=== PATIENT | female | born 1960 | race Caucasian/White ===

== ENCOUNTER 2020-08-06 10:10 | Outpatient (REF) | payer MEDICAID, SELFPAY ==
--- NOTE | ~2020-08-06 | MM_ITS ---
EXAMINATION: MM SCREENING DIGITAL BREAST TOMOSYNTHESIS, BILATERAL CLINICAL INFORMATION: Screening. Asymptomatic. No prior breast imaging. Age 60. Family history breast cancer, paternal grandmother. The lifetime risk of breast cancer based on the Tyrer-Cuzick Model is 9%. COMPARISON: None (current study represents initial baseline exam). TECHNIQUE: Digital breast tomosynthesis is performed in both the craniocaudal and mediolateral oblique views along with computer-aided detection (CAD). Synthesized 2D images are generated from the tomosynthesis. FINDINGS: There are scattered areas of fibroglandular density (ACR BI-RADS breast composition Category b). There are no significant masses, abnormal calcifications, or other abnormalities. There are scattered bilateral benign-appearing parenchymal densities. No architectural abnormality. The axilla are unremarkable. MM/MM tomosynthesis screening BI IMPRESSION: No mammographic evidence of malignancy. ASSESSMENT: BI-RADS 2: Benign RECOMMENDATION: Routine annual mammography screening. This patient's information was entered into a reminder system with a target due date for their next mammogram.
== END 2020-08-06 10:11 | disposition home or self-care (01) ==
LOC: HO.MAMMO 10:10
PROVIDERS: PCP Hospitalist; Visit Provider Hospitalist
DX: Z12.31 Encounter for screening mammogram for malignant neoplasm of breast (principal)
CPT/HCPCS: 77063; 77067

== ENCOUNTER 2020-09-04 17:26 | Inpatient (IN) | payer MEDICAID, SELFPAY ==
--- NOTE | ~2020-09-04 | XR_ITS ---
EXAMINATION: XR CHEST CLINICAL INFORMATION: Fever, altered mental status. COMPARISON: None TECHNIQUE: Frontal view of the chest was obtained. FINDINGS: Rotated positioning. The cardiomediastinal silhouette is prominent, accentuated by positioning/technique. There is hazy/patchy opacities in the left lung base including the retrocardiac region. Findings could represent atelectasis or infiltrate. Small left pleural effusion. No focal consolidation in the right lung. No pulmonary edema. No visible pneumothorax. No acute osseous abnormality seen. XR/XR chest 1V IMPRESSION: Left basilar opacity could represent atelectasis or infiltrate. Small left pleural effusion.
[2020-09-04 17:44] VITALS: BP 141/75; PULSE 81; RESP 24; TEMP 36.6; O2SAT 98; BMI 32.3
--- NOTE | 2020-09-04 18:05 | PC.NURSE ---
CALLED [facility], THEY STATED THAT NOON TIME IS LAST KNOWN WELL. 09/04/20. 1200.
--- NOTE | 2020-09-04 18:19 | ED.AMS ---
HPI - Altered Mental Status General Chief Complaint: Altered Mental Status Stated Complaint: ams, weakness Time Seen by Provider: 09/04/20 18:19 Source: EMS and RN notes reviewed Limitations: altered mental status History of Present Illness HPI narrative: Patient from skilled nursing with history of schizoaffective disorder Parkinson's disease atrial fibrillation sent from skilled nursing for increased weakness and confusion for last 24 hours patient usually able to walk with the help but now she is not even getting up from the bed no fever noticed on arrival patient temperature was 100 degrees blood pressure 141/69 pulse rate 87 saturating 99% at room air not any distress no focal weakness noticed no facial asymmetry Related Data Home Medications Medication Instructions Recorded Confirmed carbidopa-levodopa [Sinemet] 1 tab PO QID 09/04/20 09/04/20 digoxin 125 mcg PO DAILY 09/04/20 09/04/20 fluvoxamine 25 mg PO BEDTIME 09/04/20 09/04/20 furosemide [Lasix] 40 mg PO DAILY 09/04/20 09/04/20 lactase [Lactaid] 3,000 unit PO QID 09/04/20 09/04/20 metoprolol tartrate 50 mg PO BID 09/04/20 09/04/20 risperidone [Risperdal] 2 mg PO BID 09/04/20 09/04/20 rivaroxaban [Xarelto] 20 mg PO QPM 09/04/20 09/04/20 sennosides [senna] 8.6 mg PO DAILY 09/04/20 09/04/20 simvastatin 20 mg PO BEDTIME 09/04/20 09/04/20 valproic acid 500 mg PO DAILY 09/04/20 09/04/20 Allergies Allergy/AdvReac Type Severity Reaction Status Date / Time lactose Allergy Mild Unknown Verified 09/04/20 17:42 Review of Systems Review of Systems: Constitutional : No Weight loss, No Fever, No Chills ENT/Mouth : No sore throat, No Rhinorrhea Eyes: No Eye Pain, No Swelling Cardiovascular : No Chest Pain, no palpitations Respiratory : No Cough, No Sputum, no shortness of breath Gastrointestinal : no Nausea, No Vomiting, No Diarrhea, No abdominal Pain, no black stools Genitourinary : No Dysuria, No Urinary Frequency Musculoskeletal : No joint pain, No Myalgias, No Joint Swelling Skin : No Skin Lesions, No rash Neuro : ++Weakness, No Numbness, No Dizziness, No Headache Psych : No Anxiety/Panic, No Depression Heme/Lymph: No Bruising, No Lymphadenopathy Endocrine : No Polyuria, No Polydipsia All other systems reviewed and are negative [facility] Past Medical History Medical History Atrial fibrillation Parkinsons Schizoaffective disorder Social History Social History Household Members: None and Other Housing: Other Housing Other:: [facility] Alcohol intake: never Patient Tobacco Use Status: Never used Tobacco Smoked in Last 30 Days: No Use of substances other than those prescribed or required for medical reasons: No Have you been hit, kicked, punched, or otherwise hurt by someone within the past year? If so, by whom?: No Do you feel safe in your current relationship?: No Current Relationship Is there a partner from a previous relationship who is making you feel unsafe now?: No Advance Directives: No Advance Directives Information Provided: No Do you have thoughts of harming others: None Do you have a plan to hurt others: No Plan Recently lost weight without trying: No Nutrition Risks: No Nutritional Risk Patient : No : No Poor oral hygiene: No Physical Exam Vital Signs: Vital Signs: Last Vital Signs Temp 98.7 F 09/05/20 00:00 Pulse 87 09/05/20 00:00 Resp 18 09/05/20 00:00 BP 132/80 09/05/20 00:00 Pulse Ox 98 09/05/20 00:00 Body Mass Index 32.3 Appearance: Alert. Oriented X2. No acute distress. Eyes: PERRLA, No Nystagmus ENT: Pharynx normal. Oral Mucosa moist Neck: Normal inspection. Neck supple. CVS: Normal heart rate and rhythm. Pulses normal. Respiratory: No respiratory distress. Equal air entry bilateral, no wheezing/rales/rhonchi Abdomen: Soft and nontender. Bowel sounds are present, no mass palpable, no CVA tenderness Skin: Skin warm and dry. Normal skin color. Normal skin turgor. Extremities: No lower extremity edema. No calf tenderness, decrease weakness of the lower extremity Neuro: Oriented X2. No motor deficit. No sensory deficit.No cerebellar signs , cranial nerves II-XII intact MDM - Altered Mental Status MDM Narrative Medical decision making narrative: Patient with change in mental status with UTI will admit patient for IV antibiotics and IV fluids Medical Records Attestation: I reviewed the patient's medical records. Lab Data Attestation: I reviewed the patient's lab results. Result diagrams: 09/04/20 Unknown 09/04/20 Unknown Labs: Lab Results 09/04/20 09/04/20 09/04/20 Range/Units 18:43 18:43 22:08 POC Glucose 110 (60-115) mg/dL Urine Color YELLOW Urine Appearance HAZY Urine pH 6.0 (5.0-8.0) Ur Specific [place] 1.010 (1.005-1.025) Urine Protein 1+ H (NEG-TRACE) MG/DL Urine Glucose (UA) NEG (NEG) MG/DL Urine Ketones NEG (NEG) MG/DL Urine Blood 2+ H (NEG) Urine Nitrite NEG (NEG) Ur Leukocyte Esterase 2+ H (NEG) Urine RBC 15-29 H (0) /HPF Urine WBC 76-150 H (0-4) /HPF Ur Squamous Epith Cells 1+ /LPF Urine Bacteria 2+ /LPF COVID-19 ([facility]) Negative (Negative) COVID-19 Clin Com See Note Discharge Plan Discharge Clinical Impression: UTI (urinary tract infection) Qualifiers: Urinary tract infection type: acute cystitis Hematuria presence: without hematuria Qualified Code(s): N30.00 - Acute cystitis without hematuria Altered mental status Qualifiers: Altered mental status type: transient alteration of awareness Qualified Code(s): R40.4 - Transient alteration of awareness Patient Disposition: Admitted As Inpatient Interventions: Admission Worksheet (ED) Last Done: 09/05/20 00:03 Discharge Date/Time: 09/05/20 00:04
--- NOTE | 2020-09-04 18:19 | PC.NURSE ---
patient soiled the linen, changed and cleaned.
[2020-09-04 18:53] LABS: Glucose Urine UA NEG (NEG); Leukocyte Esterase Urine 2+ (NEG); Nitrite Urine NEG (NEG); UACC Culture Trigger YES; Urine Blood 2+ (NEG); Urine Ketones NEG (NEG); Urine Protein 1+ MG/DL (NEG-TRACE)
[2020-09-04 18:54] LABS: Appearance Urine HAZY; Color Urine YELLOW
[2020-09-04 19:00] LABS: Bacteria Urine 2+ /LPF; Squamous Epithelial Cell Urine 1+ /LPF
[2020-09-04 19:10] LABS: COVID-19 Test Negative (Negative); IDNOW Serial# 9DD0AD1C
[2020-09-04 19:16] LABS: MANUAL DIFF FLAG NO
[2020-09-04 19:17] LABS: Basophils Percent Auto 0.2 % (0-2); Eosinophils Percent Auto 0.1 % (0-4); Hematocrit 39.5 % (37-47); Hemoglobin 12.9 g/dl (12.0-16.0); Imm Gran Abs Auto 0.05 X10*3/uL (0.00-0.03); Imm Gran Pct Auto 0.5 % (0.0-0.4); Lymphocytes Absolute Auto 1.2 X10*3/uL (1.2-4.9); Lymphocytes Percent Auto 12.7 % (20-40); Mean Corpuscular HGB Conc 32.7 g/dl (31.0-35.0); Mean Corpuscular Hemoglobin 31.8 pg (27.0-33.0); Mean Corpuscular Volume 97.3 fL (80-98); Mean Platelet Volume 9.7 fL (9.4-12.3); Monocytes Absolute Auto 1.3 X10*3/uL (0.1-1.2); Monocytes Percent Auto 13.4 % (2-11); Neutrophils Absolute Auto 6.9 X10*3/uL (2.0-8.3); Neutrophils Percent Auto 73.1 % (45-73); Platelet Count 190 X10*3/uL (160-400); Red Blood Count 4.06 X10*6/uL (4.20-5.50); Red Cell Distribution Width 13.2 % (11.0-16.0); White Blood Count 9.5 X10*3/uL (4.8-10.8)
[2020-09-04 19:36] LABS: Lactic Acid 1.6 mmol/L (0.5-2.0)
[2020-09-04 19:44] LABS: Alanine Aminotransferase < 6 U/L (0-31); Alkaline Phosphatase 62 U/L (39-117); Anion Gap 16 (12-20); Aspartate Amino Transferase 8 U/L (5-31); Bilirubin Direct 0.2 mg/dL (0.0-0.5); Bilirubin Total 0.4 mg/dL (0.0-1.0); Blood Urea Nitrogen 14 mg/dL (9-16); Calcium 9.7 mg/dL (8.4-10.2); Carbon Dioxide 29 mmol/L (22-29); Chloride 96 mmol/L (96-108); Creatinine Clr Calc Pharmacy 82.7; Estimated Glomerular Filt Rate > 60; Glucose Random 103 mg/dL (60-115); Lipase 16 U/L (8-78); Potassium 3.8 mmol/L (3.3-5.1); Sodium 137 mmol/L (135-145); Total Protein 6.7 g/dL (6.5-8.0)
[2020-09-04 20:00] VITALS: BP 141/69; PULSE 87; RESP 14; TEMP 37.8; O2SAT 99
[2020-09-04] MEDS: Acetaminophen 325 MG TABLET 650 MG PO (20:30)
[2020-09-04] MEDS: cefTRIAXone sodium 1 GM in 0.9 % Sodium Chloride 50 ML IV (20:30)
[2020-09-04] MEDS: 0.9 % Sodium Chloride 1,000 ML 999 ML IVCONT (20:30)
--- NOTE | 2020-09-04 20:40 | PC.NURSE ---
BC x 2 sent. IVF and antibiotics running. Patient reports feeling very tired. Resting in bed. Took PO tylenol without issue. Extremities cool. NSR on tele. stable on RA. Normotensive.
[2020-09-04 22:00] VITALS: BP 108/31; PULSE 90; RESP 20; TEMP 36.5; O2SAT 94
[2020-09-04 22:11] LABS: Glucose, Whole Blood 110 mg/dL (60-115)
--- NOTE | 2020-09-04 22:15 | PC.NURSE ---
Patient sleeping. Hypotensive with MAPS in <60. Will notify . POC WNL. 1L ns completed.
[2020-09-04 22:21] VITALS: BP 106/39; PULSE 90; RESP 20; TEMP 36.5; O2SAT 94
--- NOTE | 2020-09-04 22:43 | PM.IMHP ---
History of Present Illness Date of Service: 09/04/20 Chief Complaint: Generalized weakness 60-year-old female with a past medical history of hypertension, hyperlipidemia, Parkinson's disease,? AFib, not on anticoagulation but on digoxin, history of schizoaffective disorder to the hospital with a chief complaint of generalized weakness. [facility], spoke to the staff at phone number [phone]; who mentioned that patient is not herself today. Patient reportedly had urinary incontinence. Patient is weak in general. Subsequently sent to the hospital for further evaluation. Reportedly patient did not complain of any chest pain lightheadedness dizziness. Denies any fever chills cough. In general patient uses walker and has no swallowing difficulties. Denies any chest pain palpitations lightheadedness dizziness. Review of all other systems is negative except mentioned above ER course: Per ER team patient exam was nonfocal, chest x-ray showed question infiltrate versus atelectasis, urinalysis abnormal consistent with UTI. Given antibiotics. Admitted for further management. [facility] Medical History Atrial fibrillation Parkinsons Schizoaffective disorder Social History Household Members: None and Other Housing: Other Housing Other:: [facility] Alcohol intake: never Patient Tobacco Use Status: Never used Tobacco service: No Current occupational status: disabled Meds Allergies Allergy/AdvReac Type Severity Reaction Status Date / Time lactose Allergy Mild Unknown Verified 09/04/20 17:42 Active Medications: Current Medications Generic Name Dose Route Start Last Admin Trade Name Mattq PRN Reason Stop Dose Admin Acetaminophen 650 mg 09/04/20 22:17 Acetaminophen 325 Mg Tablet PO Q6H PRN Pain, Mild (Pain Scale 1-3) Azithromycin 500 mg 09/04/20 22:00 Azithromycin 500 Mg Tablet PO Q24H ROMAIN Docusate Sodium 100 mg 09/05/20 09:00 Docusate Sodium 100 Mg Capsule PO BID [facility] Enoxaparin Sodium 40 mg 09/04/20 22:30 Enoxaparin Sodium 40 Mg/0.4 Ml Syringe SUBCUT Q24H [facility] Sodium Chloride 1,000 mls @ 100 mls/hr 09/04/20 22:30 Ns IVCONT .Q10H [facility] Ceftriaxone Sodium 1 gm/ 50 mls @ 100 mls/hr 09/05/20 20:00 Sodium Chloride IV Q24H [facility] Sodium Chloride 500 mls @ 500 mls/hr 09/04/20 22:45 Ns IV 09/04/20 23:44 .Q1H [facility] Magnesium Hydroxide 30 ml 09/04/20 22:17 Milk Of Magnesia 30 Ml Oral.Susp PO DAILY PRN Constipation Sodium Chloride 3 ml 09/05/20 00:00 0.9 % Sodium Chloride Flush 3 Ml Syringe IVFLUSH QSHIFT [facility] Home Medications Medication Instructions Recorded Confirmed Last Taken Type Xarelto 20 mg PO QPM 09/04/20 09/04/20 Unknown History carbidopa-levodopa [Sinemet] 1 tab PO QID 09/04/20 09/04/20 Unknown History digoxin 125 mcg PO DAILY 09/04/20 09/04/20 Unknown History fluvoxamine 25 mg PO BEDTIME 09/04/20 09/04/20 Unknown History furosemide [Lasix] 40 mg PO DAILY 09/04/20 09/04/20 Unknown History lactase [Lactaid] 9,000 unit PO AC 09/04/20 09/05/20 Unknown History metoprolol tartrate 50 mg PO BID 09/04/20 09/04/20 Unknown History risperidone [Risperdal] 2 mg PO BID 09/04/20 09/04/20 Unknown History sennosides [senna] 8.6 mg PO DAILY PRN 09/04/20 09/04/20 Unknown History simvastatin 20 mg PO BEDTIME 09/04/20 09/04/20 Unknown History valproic acid 500 mg PO DAILY 09/04/20 09/04/20 Unknown History acetaminophen 650 mg PO Q6H PRN 09/05/20 09/05/20 Unknown History bisacodyl 10 mg IN DAILY PRN 09/05/20 09/05/20 Unknown History loperamide 2 mg PO Q4H PRN 09/05/20 09/05/20 Unknown History valproic acid 1,000 mg PO BEDTIME 09/05/20 09/05/20 Unknown History Physical Exam Vital Signs and Narrative: Vital Signs: Last Vital Signs Temp 97.7 F 09/04/20 22:21 Pulse 90 09/04/20 22:21 Resp 20 09/04/20 22:21 BP 106/39 L 09/04/20 22:21 Pulse Ox 94 09/04/20 22:21 Body Mass Index 32.3 Gen: Appears be in no acute distress HEENT: NCAT, Moist mucosa. Pulmonary: Course breath sounds, fair air entry CVS: Normal S1-S2 Abdomen: BS+, Soft, Nontender Extremities: Warm well perfused Neuro: Alert and awake. Moves all extremities equally Results Labs CBC and Chem 7: 09/05/20 05:57 09/05/20 05:57 Labs: Laboratory Results - last 24 hr 09/04/20 09/04/20 09/04/20 18:43 18:43 22:08 MCV MCH MCHC RDW Plt Count MPV Immature Gran % (Auto) Neut % (Auto) Lymph % (Auto) [place] % (Auto) Eos % (Auto) Baso % (Auto) Lymph # (Auto) [place] # (Auto) Eos # (Auto) Baso # (Auto) Abs Immat Gran (auto) Absolute Neuts (auto) Absolute Nucleated RBC Nucleated RBC % (auto) Anion Gap Estim Creat Clear Calc Estimated GFR POC Glucose 110 Random Glucose Lactic Acid Calcium Total Bilirubin Direct Bilirubin AST ALT Alkaline Phosphatase Total Protein Albumin Lipase Urine Color YELLOW Urine Appearance HAZY Urine pH 6.0 Ur Specific [place] 1.010 Urine Protein 1+ H Urine Glucose (UA) NEG Urine Ketones NEG Urine Blood 2+ H Urine Nitrite NEG Ur Leukocyte Esterase 2+ H Urine RBC 15-29 H Urine WBC 76-150 H Ur Squamous Epith Cells 1+ Urine Bacteria 2+ COVID-19 ([facility]) Negative COVID-19 Clin Com See Note 09/04/20 09/04/20 09/04/20 Unknown Unknown Unknown MCV 97.3 MCH 31.8 MCHC 32.7 RDW 13.2 Plt Count 190 MPV 9.7 Immature Gran % (Auto) 0.5 H Neut % (Auto) 73.1 H Lymph % (Auto) 12.7 L [place] % (Auto) 13.4 H Eos % (Auto) 0.1 Baso % (Auto) 0.2 Lymph # (Auto) 1.2 [place] # (Auto) 1.3 H Eos # (Auto) 0.0 Baso # (Auto) 0.0 Abs Immat Gran (auto) 0.05 H Absolute Neuts (auto) 6.9 Absolute Nucleated RBC 0.000 Nucleated RBC % (auto) 0.0 Anion Gap 16 Estim Creat Clear Calc 82.7 Estimated GFR > 60 POC Glucose Random Glucose 103 Lactic Acid 1.6 Calcium 9.7 Total Bilirubin 0.4 Direct Bilirubin 0.2 AST 8 ALT < 6 Alkaline Phosphatase 62 Total Protein 6.7 Albumin 4.0 Lipase 16 Urine Color Urine Appearance Urine pH Ur Specific [place] Urine Protein Urine Glucose (UA) Urine Ketones Urine Blood Urine Nitrite Ur Leukocyte Esterase Urine RBC Urine WBC Ur Squamous Epith Cells Urine Bacteria COVID-19 ([facility]) COVID-19 Clin Com Imaging Radiologist's Impressions: Impressions Chest X-Ray 09/04/20 18:21 IMPRESSION: Left basilar opacity could represent atelectasis or infiltrate. Small left pleural effusion. Assessment and Plan (1) UTI (urinary tract infection): Status: Acute 60-year-old female with a past medical history of hypertension, hyperlipidemia, Parkinson's disease, schizoaffective disorder,? AFib presented to the hospital with a chief complaint of generalized weakness/confusion per [facility] staff. Noted to have UTI. Confusion: Likely toxic metabolic encephalopathy. Improving. Will continue to monitor. Supportive care. Will obtain ammonia levels given patient on valproate as outpatient. UTI/pneumonia: Follow-up cultures. Continue ceftriaxone azithromycin. Speech and swallow eval. COVID negative History of Parkinson's disease: Continue home carbidopa levodopa. History of schizoaffective disorder: Continue home valproate ? AFib: Will obtain EKG. Patient on digoxin at home. Will obtain digoxin levels. DVT prophylaxis: Lovenox Code status: Full code
[2020-09-04] MEDS: 0.9 % Sodium Chloride 1,000 ML 100 ML IVCONT (22:58)
[2020-09-04] MEDS: 0.9 % Sodium Chloride 500 ML IV (23:01)
[2020-09-04] MEDS: Azithromycin 500 MG TABLET PO (23:04)
[2020-09-04] MEDS: Enoxaparin Sodium 40 MG/0.4 ML SYRINGE SUBCUT (23:04)
--- NOTE | 2020-09-04 23:06 | PC.NURSE ---
Patient continues to report tiredness as only complaint. No interested in food or drink. 500ml bolus ns infusing, will be followed by 100ml/hr infusion. Pending bed assignment.
--- NOTE | 2020-09-04 23:31 | PC.NURSE ---
Report called to floor RN. PT pending transfer.
[2020-09-04 23:52] LABS: Delay - Chemistry DELAY
[2020-09-05] VITALS (9 sets, daily range): BP systolic 92–143; BP diastolic 53–80; PULSE 61–102; RESP 16–18; TEMP 36.2–37.1; O2SAT 93–98; BMI 37.5
[2020-09-05 00:11] LABS: Digoxin 0.4 ng/mL (0.8-2.0); Troponin-I High Sensitivity 7.4 ng/L (<3.5-17.0)
[2020-09-05] MEDS: 0.9 % Sodium Chloride 1,000 ML 100 ML IVCONT (00:18)
[2020-09-05 00:25] LABS: Ammonia 57 umol/L (13-55)
--- NOTE | 2020-09-05 06:31 | PC.NURSE ---
Pt brought to unit with indwelling catheter. No order or reasoning in notes/reports to have one placed. Gonzalez removed 0600 09/05/20. Purewick in place. Will pass onto day shift to monitor urinary output.
[2020-09-05 07:11] LABS: Anion Gap 16 (12-20); Blood Urea Nitrogen 10 mg/dL (9-16); Calcium 8.8 mg/dL (8.4-10.2); Carbon Dioxide 25 mmol/L (22-29); Chloride 104 mmol/L (96-108); Creatinine Clr Calc Pharmacy 113.3; Estimated Glomerular Filt Rate > 60; Glucose Random 100 mg/dL (60-115); Potassium 3.8 mmol/L (3.3-5.1); Sodium 141 mmol/L (135-145)
[2020-09-05 07:15] LABS: Basophils Percent Auto 0.1 % (0-2); Eosinophils Percent Auto 0.2 % (0-4); Hematocrit 35.8 % (37-47); Hemoglobin 11.4 g/dl (12.0-16.0); Imm Gran Abs Auto 0.05 X10*3/uL (0.00-0.03); Imm Gran Pct Auto 0.6 % (0.0-0.4); MANUAL DIFF FLAG SCAN; Mean Corpuscular HGB Conc 31.8 g/dl (31.0-35.0); Mean Corpuscular Hemoglobin 31.1 pg (27.0-33.0); Mean Corpuscular Volume 97.8 fL (80-98); Monocytes Absolute Auto 1.6 X10*3/uL (0.1-1.2); Neutrophils Absolute Auto 6.2 X10*3/uL (2.0-8.3); Neutrophils Percent Auto 70.1 % (45-73); Platelet Count 157 X10*3/uL (160-400); Red Blood Count 3.66 X10*6/uL (4.20-5.50); Red Cell Distribution Width 13.4 % (11.0-16.0); SCAN SMEAR FLAG 1; White Blood Count 8.8 X10*3/uL (4.8-10.8)
[2020-09-05 08:06] LABS: SLIDE REVIEW VERIFIED
[2020-09-05] MEDS: Docusate Sodium 100 MG CAPSULE PO ×2 (10:13→20:24)
--- NOTE | 2020-09-05 10:45 | P.PNIM_ITS ---
Subjective Subjective Date of Service: 09/05/20 <So Valdovinos NP - Last Filed: 09/05/20 11:06> 09/05/20 <Rock Juarez MD - Last Filed: 09/05/20 15:39> Interval History: Follow up PNA/UTI Feeling better today sitting up eating breakfast <So Valdovinos NP - Last Filed: 09/05/20 11:06> Physical Exam Vital Signs: Vital Signs: Last Vital Signs Temp 98.7 F 09/05/20 07:47 Pulse 87 09/05/20 07:47 Resp 16 09/05/20 07:47 BP 143/65 H 09/05/20 07:47 Pulse Ox 93 09/05/20 07:47 Body Mass Index 37.5 <So Valdovinos NP - Last Filed: 09/05/20 11:06> Appearing in no acute distress lung sounds are clear to auscultation heart regular rate rhythm, clear S1, S2 positive bowel sounds, abdomen is soft, nontender, obese neuro patient is alert x3, no focal deficits <So Valdovinos NP - Last Filed: 09/05/20 11:06> Objective Data Current Medications Generic Name Dose Route Start Last Admin Trade Name Freq PRN Reason Stop Dose Admin Acetaminophen 650 mg 09/04/20 22:17 Acetaminophen 325 Mg Tablet PO Q6H PRN Pain, Mild (Pain Scale 1-3) Azithromycin 500 mg 09/04/20 22:00 09/04/20 23:04 Azithromycin 500 Mg Tablet PO 500 mg Q24H ROMAIN Administration Docusate Sodium 100 mg 09/05/20 09:00 09/05/20 10:13 Docusate Sodium 100 Mg Capsule PO 100 mg BID ROMAIN Administration Enoxaparin Sodium 40 mg 09/04/20 22:30 09/04/20 23:04 Enoxaparin Sodium 40 Mg/0.4 Ml Syringe SUBCUT 40 mg Q24H ROMAIN Administration Sodium Chloride 1,000 mls @ 100 mls/hr 09/04/20 22:30 09/05/20 10:24 Ns IVCONT Infused .Q10H [facility]AIN Infusion Ceftriaxone Sodium 1 gm/ 50 mls @ 100 mls/hr 09/05/20 20:00 Sodium Chloride IV Q24H [facility] Magnesium Hydroxide 30 ml 09/04/20 22:17 Milk Of Magnesia 30 Ml Oral.Susp PO DAILY PRN Constipation Sodium Chloride 3 ml 09/05/20 00:00 09/05/20 08:46 0.9 % Sodium Chloride Flush 3 Ml Syringe IVFLUSH Not Given QSHIFT ROMAIN <So Valdovinos NP - Last Filed: 09/05/20 11:06> Labs CBC & Chem 7: : 09/05/20 05:57 09/05/20 05:57 <So Valdovinos NP - Last Filed: 09/05/20 11:06> Microbiology Microbiology Results: Microbiology 09/04/20 18:43 Urine clean catch - Clean Catch Midstream Urine Culture - Preliminary Gram negative pearl <So Valdovinos NP - Last Filed: 09/05/20 11:06> Assessment and Plan (1) UTI (urinary tract infection): Status: Acute <So Valdovinos NP - Last Filed: 09/05/20 11:06> Assessment and Plan: 60-year-old female with a past medical history of hypertension, hyperlipidemia, Parkinson's disease, schizoaffective disorder,? AFib presented to the hospital with a chief complaint of generalized weakness/confusion per [facility] home staff. Noted to have UTI. Toxic metabolic encephalopathy. Secondary to infection Improving. -will continue to monitor. UTI. cx GNR -continue ceftriaxone PNA. follow cx no hypoxia covid neg -ceftriaxone and azithromycin. History of Parkinson's disease -Continue home carbidopa levodopa. History of schizoaffective disorder -Continue home valproate AFib. Stable -Digoxin and metoprolol -Xarelto Obesity. BMI 37.5 -Discussed the importance of weight loss as this may contribute to worsening of other comorbidities DISPO: Back to [facility] when medically stable DVT prophylaxis with xarelto Full code Dr. Juarez <So Valdovinos NP - Last Filed: 09/05/20 11:06> (2) Altered mental status: Status: Acute <So Valdovinos NP - Last Filed: 09/05/20 11:06> Assessment and Plan: Addendum to documentation by midlevel I saw and examined the patient and participated in the nicholson portion of the E/M service. I agree with finding, asssessment and plan as mentioned above. She is imroving from UTI with toxic metabolic encephalopathy. Urine culture is growing gram negaive, no sensitivity as of yet, so continue Ceftriaxone which seems to be a good choice thus far, otherwise I agree with assessent and plan as above. <Rock Juarez MD - Last Filed: 09/05/20 15:39>
[2020-09-05] MEDS: Furosemide 40 MG TABLET PO (11:46)
[2020-09-05] MEDS: Carbidopa/Levodopa 25/100 TABLET 1 TAB PO ×3 (11:46→20:24)
[2020-09-05] MEDS: Metoprolol Tartrate 50 MG TABLET PO ×2 (11:46→20:24)
[2020-09-05] MEDS: Digoxin 0.125 MG TABLET PO (11:46)
[2020-09-05] MEDS: Sennosides 8.6 MG TABLET PO (11:46)
[2020-09-05] MEDS: risperiDONE 2 MG TABLET PO ×2 (11:46→20:24)
[2020-09-05] MEDS: Lactase TABLET 3 TAB PO ×2 (13:42→17:09)
[2020-09-05] MEDS: Valproic Acid 250 MG CAPSULE 500 MG PO (13:42)
--- NOTE | 2020-09-05 14:31 | MHC.CM.PN ---
CM MET WITH PT WHO CONFIRMS SHE LIVES AT [facility]. CM CONFIRMED WITH SNF, PT DOES NOT HAVE A GUARDIAN OR HCP AND IS HER OWN PERSON. PT REPORTS SHE RECEIVES SOME ASSISTANCE WITH ADLS AT THE SNF BUT DOES NOT REQUIRE AN ASSISTIVE DEVICE TO AMBULATE. CURRENT DC PLAN IS FOR PT TO RETURN TO [facility] VIA BLS
[2020-09-05] MEDS: 0.9 % Sodium Chloride Flush 3 ML SYRINGE IVFLUSH ×2 (17:10→20:24)
[2020-09-05] MEDS: cefTRIAXone sodium 1 GM in 0.9 % Sodium Chloride 50 ML IV (19:41)
[2020-09-05] MEDS: Rivaroxaban 20 MG TABLET PO (20:23)
[2020-09-05] MEDS: Valproic Acid 250 MG CAPSULE 1000 MG PO (20:23)
[2020-09-05] MEDS: Atorvastatin Calcium 10 MG TABLET PO (20:24)
[2020-09-05] MEDS: Azithromycin 500 MG TABLET PO (21:11)
[2020-09-06] VITALS (7 sets, daily range): BP systolic 107–144; BP diastolic 53–88; PULSE 80–91; RESP 17–20; TEMP 36.4–37.1; O2SAT 94–99
--- NOTE | 2020-09-06 | ECG_ITS ---
Test Reason : chest pressure Blood Pressure : / mmHG Vent. Rate : 085 BPM Atrial Rate : 091 BPM P-R Int : 000 ms QRS Dur : 086 ms QT Int : 358 ms P-R-T Axes : 000 056 -60 degrees QTc Int : [address] & T wave abnormality, consider inferior ischemia ST & T wave abnormality, consider anterolateral ischemia Abnormal ECG No previous ECGs available Referred By: So Valdovinos Electronically Signed By:CLAUDINE STARR
[2020-09-06] MEDS: Docusate Sodium 100 MG CAPSULE PO ×2 (07:12→21:16)
[2020-09-06] MEDS: Valproic Acid 250 MG CAPSULE 500 MG PO (07:12)
[2020-09-06] MEDS: 0.9 % Sodium Chloride Flush 3 ML SYRINGE IVFLUSH ×3 (07:12→23:38)
[2020-09-06] MEDS: Carbidopa/Levodopa 25/100 TABLET 1 TAB PO ×4 (07:13→21:16)
[2020-09-06] MEDS: Lactase TABLET 3 TAB PO ×3 (07:13→17:59)
[2020-09-06] MEDS: Furosemide 40 MG TABLET PO (07:13)
[2020-09-06] MEDS: risperiDONE 2 MG TABLET PO ×2 (07:13→21:16)
[2020-09-06] MEDS: Metoprolol Tartrate 50 MG TABLET PO ×2 (07:13→21:16)
[2020-09-06] MEDS: Sennosides 8.6 MG TABLET PO (07:13)
[2020-09-06] MEDS: Digoxin 0.125 MG TABLET PO (07:13)
--- NOTE | 2020-09-06 09:51 | P.PNIM_ITS ---
Subjective Subjective Date of Service: 09/06/20 <So Valdovinos NP - Last Filed: 09/06/20 09:56> 09/06/20 <Rock Juarez MD - Last Filed: 09/06/20 13:37> Interval History: Follow up PNA/UTI Feeling better today sitting up eating breakfast c/o chest pressure <So Valdovinos NP - Last Filed: 09/06/20 09:56> Physical Exam Vital Signs: Vital Signs: Last Vital Signs Temp 98.3 F 09/06/20 08:00 Pulse 91 09/06/20 08:00 Resp 20 09/06/20 08:00 BP 126/66 09/06/20 08:00 Pulse Ox 95 09/06/20 08:00 Body Mass Index 37.5 <So Valdovinos NP - Last Filed: 09/06/20 09:56> Appearing in no acute distress lung sounds are clear to auscultation heart IRIR positive bowel sounds, abdomen is soft, nontender, obese neuro patient is alert x3, no focal deficits <So Valdovnios NP - Last Filed: 09/06/20 09:56> Objective Data Current Medications Generic Name Dose Route Start Last Admin Trade Name Freq PRN Reason Stop Dose Admin Acetaminophen 650 mg 09/04/20 22:17 Acetaminophen 325 Mg Tablet PO Q6H PRN Pain, Mild (Pain Scale 1-3) Atorvastatin Calcium 10 mg 09/05/20 21:00 09/05/20 20:24 Atorvastatin Calcium 10 Mg Tablet PO 10 mg BEDTIME ROMAIN Administration Azithromycin 500 mg 09/04/20 22:00 09/05/20 21:11 Azithromycin 500 Mg Tablet PO 500 mg Q24H ROMAIN Administration Carbidopa/Levodopa 1 tab 09/05/20 13:00 09/06/20 07:13 Carbidopa/Levodopa 25/100 Tablet PO 1 tab QID ROMAIN Administration Digoxin 0.125 mg 09/05/20 11:15 09/06/20 07:13 Digoxin 0.125 Mg Tablet PO 0.125 mg DAILY ROMAIN Administration Docusate Sodium 100 mg 09/05/20 09:00 09/06/20 07:12 Docusate Sodium 100 Mg Capsule PO 100 mg BID ROMAIN Administration Furosemide 40 mg 09/05/20 11:15 09/06/20 07:13 Furosemide 40 Mg Tablet PO 40 mg DAILY ROMAIN Administration Protocol Ceftriaxone Sodium 1 gm/ 50 mls @ 100 mls/hr 09/05/20 20:00 09/05/20 20:18 Sodium Chloride IV Infused Q24H ROMAIN Infusion Lactase 3 tab 09/05/20 13:00 09/06/20 07:13 Lactase Tablet PO 3 tab TIDWM ROMAIN Administration Magnesium Hydroxide 30 ml 09/04/20 22:17 Milk Of Magnesia 30 Ml Oral.Susp PO DAILY PRN Constipation Metoprolol Tartrate 50 mg 09/05/20 11:15 09/06/20 07:13 Metoprolol Tartrate 50 Mg Tablet PO 50 mg BID ROMAIN Administration Protocol Non-Formulary Medication 25 mg 09/05/20 21:00 Fluvoxamine PO BEDTIME ROMAIN Risperidone 2 mg 09/05/20 11:15 09/06/20 07:13 Risperidone 2 Mg Tablet PO 2 mg BID ROMAIN Administration Rivaroxaban 20 mg 09/05/20 21:00 09/05/20 20:23 Rivaroxaban 20 Mg Tablet PO 20 mg BEDTIME ROMAIN Administration Senna 8.6 mg 09/05/20 11:15 09/06/20 07:13 Sennosides 8.6 Mg Tablet PO 8.6 mg DAILY ROMAIN Administration Sodium Chloride 3 ml 09/05/20 00:00 09/06/20 07:12 0.9 % Sodium Chloride Flush 3 Ml Syringe IVFLUSH 3 ml QSHIFT ROMAIN Administration Valproic Acid 500 mg 09/05/20 11:15 09/06/20 07:12 Valproic Acid 250 Mg Capsule PO 500 mg DAILY ROMAIN Administration Valproic Acid 1,000 mg 09/05/20 21:00 09/05/20 20:23 Valproic Acid 250 Mg Capsule PO 1,000 mg BEDTIME ROMAIN Administration <So Valdovinos NP - Last Filed: 09/06/20 09:56> Labs CBC & Chem 7: : 09/05/20 05:57 09/05/20 05:57 <So Valdovinos NP - Last Filed: 09/06/20 09:56> Microbiology Microbiology Results: Microbiology 09/04/20 18:43 Urine clean catch - Clean Catch Midstream Urine Culture - Final Escherichia coli 09/04/20 20:12 Blood - Venous Blood Culture - Preliminary No growth after 24 hours. 09/04/20 19:53 Blood - Venous Blood Culture - Preliminary No growth after 24 hours. <So Valdovinos NP - Last Filed: 09/06/20 09:56> Assessment and Plan (1) UTI (urinary tract infection): Status: Acute <So Valdovinos NP - Last Filed: 09/06/20 09:56> Assessment and Plan: 60-year-old female with a past medical history of hypertension, hyperlipidemia, Parkinson's disease, schizoaffective disorder,? AFib presented to the hospital with a chief complaint of generalized weakness/confusion [facility]. Noted to have UTI. Chest pressure. No changes on Telemetry -Obtain Troponin and EKG Toxic metabolic encephalopathy. Secondary to infection Improving. -will continue to monitor. UTI. cx Ecoli -continue ceftriaxone PNA. cx negative after 24 hours no hypoxia covid neg -ceftriaxone and azithromycin. History of Parkinson's disease -Continue home carbidopa levodopa. History of schizoaffective disorder -Continue home valproate AFib. Stable -Digoxin and metoprolol -Xarelto Obesity. BMI 37.5 -Discussed the importance of weight loss as this may contribute to worsening of other comorbidities DISPO: Back to [facility] when medically stable, possibly tomorrow DVT prophylaxis with xarelto Full code Mlalthea <So Valdovinos NP - Last Filed: 09/06/20 09:56>
[2020-09-06 11:37] LABS: Troponin-I High Sensitivity 4.7 ng/L (<3.5-17.0)
[2020-09-06] MEDS: cefTRIAXone sodium 1 GM in 0.9 % Sodium Chloride 50 ML IV (20:26)
[2020-09-06] MEDS: Valproic Acid 250 MG CAPSULE 1000 MG PO (21:15)
[2020-09-06] MEDS: Atorvastatin Calcium 10 MG TABLET PO (21:16)
[2020-09-06] MEDS: Rivaroxaban 20 MG TABLET PO (21:16)
[2020-09-06] MEDS: Azithromycin 500 MG TABLET PO (21:16)
[2020-09-07 03:32] VITALS: BP 122/71; PULSE 101; RESP 18; TEMP 36.6; O2SAT 99
--- NOTE | 2020-09-07 07:49 | P.DS_ITS ---
DS: Providers Provider Date of Service: 09/07/20 <So Valdovinos NP - Last Filed: 09/07/20 10:12> Date of admission: 09/04/20 22:17 <So Valdovinos NP - Last Filed: 09/07/20 10:12> Date of discharge: 09/07/20 <So Valdovinos NP - Last Filed: 09/07/20 10:12> Primary care physician: Cristofer Lake DO <So Valdovinos NP - Last Filed: 09/07/20 10:12> Admitting clinician: Pete Soriano <So Valdovinos NP - Last Filed: 09/07/20 10:12> Attending physician on admission: Pete Soriano <So Valdovinos NP - Last Filed: 09/07/20 10:12> Attending physician on discharge: Rock Juarez <So Valdovinos NP - Last Filed: 09/07/20 10:12> Discharging clinician: So Valdovinos <So Valdovinos NP - Last Filed: 09/07/20 10:12> DS: Diagnosis Discharge Diagnosis (1) UTI (urinary tract infection): Status: Acute <So Valdovinos NP - Last Filed: 09/07/20 10:12> (2) CAP (community acquired pneumonia): Status: Acute <So Valdovinos NP - Last Filed: 09/07/20 10:12> (3) Altered mental status: Status: Acute <So Valdovinos NP - Last Filed: 09/07/20 10:12> DS: Medications Discharge Medications Home Medications: Home Medications Medication Instructions Recorded Confirmed carbidopa-levodopa [Sinemet] 1 tab PO QID 09/04/20 09/04/20 digoxin 125 mcg PO DAILY 09/04/20 09/04/20 fluvoxamine 25 mg PO BEDTIME 09/04/20 09/04/20 furosemide [Lasix] 40 mg PO DAILY 09/04/20 09/04/20 lactase [Lactaid] 9,000 unit PO AC 09/04/20 09/05/20 metoprolol tartrate 50 mg PO BID 09/04/20 09/04/20 risperidone [Risperdal] 2 mg PO BID 09/04/20 09/04/20 rivaroxaban [Xarelto] 20 mg PO QPM 09/04/20 09/04/20 sennosides [senna] 8.6 mg PO DAILY PRN 09/04/20 09/04/20 simvastatin 20 mg PO BEDTIME 09/04/20 09/04/20 valproic acid 500 mg PO DAILY 09/04/20 09/04/20 acetaminophen 650 mg PO Q6H PRN 09/05/20 09/05/20 bisacodyl 10 mg TN DAILY PRN 09/05/20 09/05/20 loperamide 2 mg PO Q4H PRN 09/05/20 09/05/20 valproic acid 1,000 mg PO BEDTIME 09/05/20 09/05/20 <So Valdovinos NP - Last Filed: 09/07/20 10:12> DS: Summary Hospital Course Hospital Course: HP as per admitting provider 60-year-old female with a past medical history of hypertension, hyperlipidemia, Parkinson's disease,? AFib, not on anticoagulation but on digoxin, history of schizoaffective disorder to the hospital with a chief complaint of generalized weakness. Patient lives in [facility], spoke to the staff at phone number [phone]; who mentioned that patient is not herself today. Patient reportedly had urinary incontinence. Patient is weak in general. Subsequently sent to the hospital for further evaluation. Reportedly patient did not complain of any chest pain lightheadedness dizziness. Denies any fever chills cough . Encephalopathy Multifactorial as patient has a history of dementia. Infection may have played a role. Seems more back to baseline at this point. CAP. Initial symptom of generalized weakness. Patient was not hypoxic. Chest x-ray did show left basilar opacity. She was treated with Rocephin and azithromycin. Will continue treatment with Ceftin and azithromycin. Blood cultures negative after 48 hours. UTI. Urine culture grew E coli. Patient treated with Rocephin while inpatient. Will transition to Ceftin for outpatient treatment. I have seen and evaluated this patient. I have discussed the case and its ma nagement with the [employer] and I agree with the findings and plan as documented in the [employer]INE?s note. Treated for UTI with encephalopathy and now back to baseline to complete course of Ceftin as stated.. T. Mlapah <So Valdovinos NP - Last Filed: 09/07/20 10:12> Time Spent with Patient Time attestation: Total time spent providing and/or coordinating discharge services: <So Valdovinos NP - Last Filed: 09/07/20 10:12> Discharge coordination time: Greater than 30 minutes <So Valdovinos NP - Last Filed: 09/07/20 10:12> Quality: Stroke Does the patient have a stroke diagnosis?: No <So Valdovinos NP - Last Filed: 09/07/20 10:12> Physical Exam Vital Signs: Vital Signs: Last Vital Signs Temp 97.8 F 09/07/20 03:32 Pulse 101 H 09/07/20 03:32 Resp 18 09/07/20 03:32 BP 122/71 09/07/20 03:32 Pulse Ox 99 09/07/20 03:32 Body Mass Index 37.5 <So Valdovinos NP - Last Filed: 09/07/20 10:12> Appearing in no acute distress lung sounds are clear to auscultation heart regular rate rhythm, clear S1, S2 positive bowel sounds, abdomen is soft, nontender neuro patient is alert x3, no focal deficits <So Valdovinos NP - Last Filed: 09/07/20 10:12> DS: Data Data Completed and Pending Labs on day of discharge: Laboratory Results - last 24 hr 09/06/20 10:38 Troponin I High Sens 4.7 Preliminary micro results at discharge 09/04/20 20:12 Blood Culture - Preliminary Blood - Venous No growth after 48 hours. 09/04/20 19:53 Blood Culture - Preliminary Blood - Venous No growth after 48 hours. <So Valdovinos NP - Last Filed: 09/07/20 10:12> Discharge Plan Discharge Anticipated Discharge Date/Time: 09/07/20 07:43 <So Valdovinos NP - Last Filed: 09/07/20 10:12> Patient Disposition: Xfer SNF <So Valdovinos NP - Last Filed: 09/07/20 10:12> Discharge Diagnosis: Toxic metabolic encephalopathy CAP UTI <So Valdovinos NP - Last Filed: 09/07/20 10:12> Toxic metabolic encephalopathy CAP UTI <Rock Juarez MD - Last Filed: 09/07/20 17:55> Referrals: [facility] [Outside] - 1 Week Cristofer Lake DO [Primary Care Provider] - 1 Week <So Valdovinos NP - Last Filed: 09/07/20 10:12> Discharge Medications: New azithromycin 500 mg Tablet 500 mg PO Q24H Qty: 5 RF: 0 cefuroxime axetil 250 mg tablet 250 mg PO BID Qty: 10 RF: 0 Continued furosemide [Lasix] 40 mg Tablet 40 mg PO DAILY RF: 0 sennosides [senna] 8.6 mg Tablet 8.6 mg PO DAILY PRN (Reason: Constipation) RF: 0 risperidone [Risperdal] 2 mg Tablet 2 mg PO BID RF: 0 fluvoxamine 25 mg Tablet 25 mg PO BEDTIME RF: 0 simvastatin 20 mg Tablet 20 mg PO BEDTIME RF: 0 metoprolol tartrate 50 mg Tablet 50 mg PO BID RF: 0 lactase [Lactaid] 3,000 unit Tablet 9,000 unit PO AC RF: 0 digoxin 125 mcg (0.125 mg) Tablet 125 mcg PO DAILY RF: 0 carbidopa-levodopa [Sinemet] 25-100 mg Tablet 1 tab PO QID RF: 0 valproic acid 250 mg Capsule 500 mg PO DAILY RF: 0 Xarelto 20 mg Tablet 20 mg PO QPM RF: 0 acetaminophen 325 mg Tablet 650 mg PO Q6H PRN (Reason: Pain) RF: 0 loperamide 2 mg Tablet 2 mg PO Q4H PRN (Reason: Diarrhea) RF: 0 valproic acid 250 mg Capsule 1,000 mg PO BEDTIME RF: 0 bisacodyl 10 mg Suppository 10 mg TN DAILY PRN (Reason: Constipation) RF: 0 <So Valdovinos NP - Last Filed: 09/07/20 10:12> Discharge Orders: Discharge Order (Routine); Ordered 09/07/20 Ordered By: So Valdovinos <So Valdovinos NP - Last Filed: 09/07/20 10:12> Diet: advance to usual diet <So Valdovinos NP - Last Filed: 09/07/20 10:12> advance to usual diet <Rock Juarez MD - Last Filed: 09/07/20 17:55> Activity on Discharge: As tolerated <So Valdovinos NP - Last Filed: 09/07/20 10:12> As tolerated <Rock Juarez MD - Last Filed: 09/07/20 17:55> Stand Alone Forms: Patient Portal Discharge page <So Valdovinos NP - Last Filed: 09/07/20 10:12> Care Plan Goals: Resolution of PNA and UTI symptoms <So Valdovinos NP - Last Filed: 09/07/20 10:12> Health Concerns: Toxic metabolic encephalopathy CAP UTI <So Valdovinos NP - Last Filed: 09/07/20 10:12> Plan of Treatment: Follow up with primary care provider Dr. Cristofer Lake when back at [facility] Continue antibiotics as prescribed <So Valdovinos NP - Last Filed: 09/07/20 10:12> Assessment: See discharge summary <So Valdovinos NP - Last Filed: 09/07/20 10:12> Discharge Date/Time: 09/07/20 11:20 <So Valdovinos NP - Last Filed: 09/07/20 10:12>
[2020-09-07 07:58] VITALS: BP 139/81; PULSE 85; RESP 16; TEMP 36.8; O2SAT 96
[2020-09-07] MEDS: Metoprolol Tartrate 50 MG TABLET PO (09:02)
[2020-09-07] MEDS: 0.9 % Sodium Chloride Flush 3 ML SYRINGE IVFLUSH (09:02)
[2020-09-07] MEDS: Furosemide 40 MG TABLET PO (09:02)
[2020-09-07] MEDS: Lactase TABLET 3 TAB PO (09:02)
[2020-09-07] MEDS: risperiDONE 2 MG TABLET PO (09:03)
[2020-09-07] MEDS: Valproic Acid 250 MG CAPSULE 500 MG PO (09:03)
[2020-09-07] MEDS: Carbidopa/Levodopa 25/100 TABLET 1 TAB PO (09:03)
[2020-09-07] MEDS: Digoxin 0.125 MG TABLET PO (09:03)
--- NOTE | 2020-09-07 09:35 | MHC.CM.PN ---
Patient has been medically cleared for dc to return to LTC at [facility] today. Patient will return to SNF today at 11 AM, via [facility].
[2020-09-07 11:10] LABS: COVID-19 Test Negative (Negative)
== END 2020-09-07 11:20 | disposition skilled nursing facility (03) | DRG 139 ==
LOC: HO.ED 17:54 → HO.IMC 23:14
PROVIDERS: Nurse Practitioner Acute Care; Admitting Provider Hospitalist; Emergency Provider Internal Medicine; PCP Hospitalist; Visit Provider Internal Medicine
DX: J18.9 Pneumonia, unspecified organism (principal); G92 Toxic encephalopathy; G20 Parkinson's disease; I48.91 Unspecified atrial fibrillation; N39.0 Urinary tract infection, site not specified; E66.9 Obesity, unspecified; B96.20 Unspecified Escherichia coli [E. coli] as the cause of diseases classified elsewhere; Z68.37 Body mass index [BMI] 37.0-37.9, adult; E78.5 Hyperlipidemia, unspecified; F39 Unspecified mood [affective] disorder; Z20.822 Contact with and (suspected) exposure to COVID-19; Z79.01 Long term (current) use of anticoagulants; Z79.899 Other long term (current) drug therapy
CPT/HCPCS: 36415; 71045; 80048; 80076; 80162; 81001; 81003; 82140; 82947; 83605; 83690; 84484; 85025; 87040; 87086; 87088; 87186; 87635; 93005; 99285; J0696; J1650

== ENCOUNTER 2021-02-02 10:35 | Inpatient (IN) | payer MEDICAID, SELFPAY ==
--- NOTE | ~2021-02-02 | XR_ITS ---
EXAMINATION: XR BILATERAL HIPS WITH AP PELVIS CLINICAL INFORMATION: Fall. Rule out hip fracture. COMPARISON: None TECHNIQUE: AP view of the pelvis and single views of each hip were obtained. FINDINGS: Bone alignment is normal. No fracture or dislocation is seen. There is mild joint space narrowing at both hip joints. Bones of the pelvis are unremarkable. There are mild degenerative changes of the lower lumbar spine. XR/XR hip BI w PEL1V IMPRESSION: No fracture or dislocation seen.
--- NOTE | ~2021-02-02 | XR_ITS ---
EXAMINATION: XR CHEST XR FOREARM-RIGHT CLINICAL INFORMATION: Status post fall. Contusion. Hypotension. COMPARISON: Chest radiograph done on 09/04/2020. TECHNIQUE: AP upright portable frontal view of the chest and 2 views, 3 images of the right forearm were obtained. FINDINGS: CHEST: Persistent stable mild blunting of the left lateral CP angle is noted, most consistent with stable since trace effusion, thickening or combination thereof. Both lung wilkerson are symmetrically expanded and are clear. The cardiac mediastinal silhouette is prominent however is stable. No evidence of any pneumothorax or displaced rib fracture. Overall, no significant change. Right forearm: Frontal view technically limited. No radiographic evidence of any displaced fracture or subluxation or dislocation is seen. Soft tissues appear unremarkable. XR/XR forearm RT 2V IMPRESSION: 1. The chest radiograph appear unchanged in 09/04/2020. Specifically, no evidence of any displaced rib fracture or pneumothorax present. 2. Technically limited right forearm showing no evidence of any displaced fracture, subluxation or dislocation. No radiopaque foreign body.
--- NOTE | ~2021-02-02 | CT_ITS ---
EXAMINATION: CT SOFT TISSUE NECK WITH CONTRAST CLINICAL INFORMATION: Follow-up abnormal in soft tissues of the right paraspinal muscles on cervical spine CT done for trauma. Question infection. COMPARISON: Previous cervical spine CT from earlier the same day TECHNIQUE: Following the intravenous administration of 60 mL of Omnipaque 350 intravenous contrast, helical imaging was performed in the axial plane with generation of coronal and sagittal reformatted images. This CT examination was performed using dose optimization techniques as appropriate, variously including the following: *Automated exposure control *Adjustment of mA and/or kV according to patient size (this includes techniques or standardized protocols for targeted exams where dose is matched to indication/reason for exam; i.e. extremities or head) *Use of iterative reconstruction technique DLP: 553 mGy-cm FINDINGS: The previously identified air in the right paraspinal soft tissues is no longer seen. The visualized intracranial structures are normal. The orbits are normal. Visualized paranasal sinuses, mastoid air cells and middle ears are clear. The naso, royal-and hypopharynx and larynx are normal appearing. The salivary glands are normal. The thyroid gland is normal. There are small bilateral cervical lymph nodes. No enlarged lymph nodes are seen. Vascular structures are normal. There is dependent atelectasis or pleural thickening seen in the posterior right lung apex. The lung apices are otherwise clear. There are degenerative changes of the spine and thoracolumbar scoliosis. CT/CT soft tissue neck w con IMPRESSION: The previously identified air in the right paraspinal soft tissues on cervical spine CT from earlier the same day is no longer seen.
--- NOTE | ~2021-02-02 | XR_ITS ---
EXAMINATION: XR CHEST XR FOREARM-RIGHT CLINICAL INFORMATION: Status post fall. Contusion. Hypotension. COMPARISON: Chest radiograph done on 09/04/2020. TECHNIQUE: AP upright portable frontal view of the chest and 2 views, 3 images of the right forearm were obtained. FINDINGS: CHEST: Persistent stable mild blunting of the left lateral CP angle is noted, most consistent with stable since trace effusion, thickening or combination thereof. Both lung wilkerson are symmetrically expanded and are clear. The cardiac mediastinal silhouette is prominent however is stable. No evidence of any pneumothorax or displaced rib fracture. Overall, no significant change. Right forearm: Frontal view technically limited. No radiographic evidence of any displaced fracture or subluxation or dislocation is seen. Soft tissues appear unremarkable. XR/XR chest 1V IMPRESSION: 1. The chest radiograph appear unchanged in 09/04/2020. Specifically, no evidence of any displaced rib fracture or pneumothorax present. 2. Technically limited right forearm showing no evidence of any displaced fracture, subluxation or dislocation. No radiopaque foreign body.
--- NOTE | ~2021-02-02 | CT_ITS ---
EXAMINATION: CT HEAD WITHOUT CONTRAST CT CERVICAL SPINE WITHOUT CONTRAST CLINICAL INFORMATION: Reason for Exam s/p fall, on xarelto COMPARISON: None. TECHNIQUE: Imaging was performed from the skull base to vertex without intravenous administration of contrast. In addition, helical noncontrast CT imaging was acquired through the cervical spine and source images were reviewed along with axial reconstructions and sagittal and coronal MPRs. This CT examination was performed using dose optimization techniques as appropriate, variously including the following: *Automated exposure control. *Adjustment of mA and/or kV according to patient size (this includes techniques or standardized protocols for targeted exams where dose is matched to indication/reason for exam; i.e. extremities or head). *Use of iterative reconstruction technique. Total exam dose-length product 858 and 415 (head and cervical spine respectively) mGy-cm FINDINGS: HEAD: No intracranial mass, hemorrhage, or midline shift is visualized. The ventricles and sulci are unremarkable. No extra-axial collections are identified. The paranasal sinuses and mastoid air cells are well aerated. CERVICAL SPINE: There is no evidence of acute cervical spine fracture. Vertebral bodies remain normal in height, and alignment is anatomic. Multilevel degenerative disc disease and bilateral facet joint arthritic changes are present. Specific note is made of mid to lower cervical moderate dextroscoliosis. Significant amount of soft tissue gas is identified within the paraspinal as well as intraspinal soft tissue mostly to the right of the midline, indeterminate etiology. No evidence of any prespinal soft tissue hematoma. The visualized lung apices is remarkable for presence of likely small right apical pleural effusion. Evaluation of both lung apices is limited due to motion related artifacts, grossly unremarkable. CT/CT cervical spine wo con IMPRESSION: 1. No acute intracranial pathology. 2. No CT evidence of acute cervical spine fracture or traumatic subluxation. 3. Significant amount of soft tissue gas is identified within the paraspinal as well as intraspinal soft tissue mostly to the right of the midline, indeterminate etiology. 4. The visualized right lung apex is remarkable for small right pleural effusion.
--- NOTE | ~2021-02-02 | CT_ITS ---
EXAMINATION: CT SOFT TISSUE NECK WITHOUT CONTRAST CLINICAL INFORMATION: reassess gas seen on prior imaging COMPARISON: CT cervical spine February 02, 2021, CT soft tissues of neck February 02, 2021 TECHNIQUE: Helical imaging was performed in the axial plane with generation of coronal and sagittal reformatted images. This CT examination was performed using dose optimization techniques as appropriate, variously including the following: *Automated exposure control *Adjustment of mA and/or kV according to patient size (this includes techniques or standardized protocols for targeted exams where dose is matched to indication/reason for exam; i.e. extremities or head) *Use of iterative reconstruction technique DLP: 498 mGy-cm FINDINGS: The previously identified air in the right paraspinal soft tissues of the neck seen on the CAT scan of February 02, 2021 12:19 PM are not present on this study. The transient nature of these air collections suggest these previously seen small air collections were due to intravenous air . There is no focal fluid collection or abscess. Fat planes through the neck are normal. No neck mass. No significant lymphadenopathy. The nasopharynx, oropharynx and hypopharynx structures are normal. Superior mediastinum normal. Normal aeration of the upper lobes of the lungs. The partially visualized intracranial structures are normal. There is multilevel degenerative spondylosis of the cervical and upper thoracic spine. CT/CT soft tissue neck wo con IMPRESSION: Previously identified air collections in the soft tissues of the neck on the prior CAT scan of February 02, 2021, 12:19 PM are not present on this exam
[2021-02-02 10:47] VITALS: BP 94/46; BP 97/43; PULSE 81; PULSE 86; RESP 18; TEMP 37.1; O2SAT 95; O2SAT 98; BMI 35.9
--- NOTE | 2021-02-02 10:52 | ECG_ITS ---
Test Reason : weakness Blood Pressure : / mmHG Vent. Rate : 077 BPM Atrial Rate : 000 BPM P-R Int : 000 ms QRS Dur : 080 ms QT Int : 358 ms P-R-T Axes : 000 022 138 degrees QTc Int : [address] & T wave abnormality, consider anterolateral ischemia Abnormal ECG When compared with ECG of 06-SEP-2020 10:10, T wave inversion no longer evident in Inferior leads Referred By: Naheed Suárez Electronically Signed By:PATY POWELL MD
[2021-02-02 11:02] LABS: Glucose, Whole Blood 127 mg/dL (60-115)
--- NOTE | 2021-02-02 11:10 | ED_ITS ---
HPI - General Adult General Chief complaint: General Medical Stated complaint: LOW BP 90/54 W/[facility]Y PER SNF Time Seen by Provider: 02/02/21 11:02 Source: patient, EMS, RN notes reviewed and old records reviewed Mode of arrival: EMS Limitations: altered mental status History of Present Illness HPI narrative: 60 y/o female with history of schizoaffective disorder, Parkinson's disease, atrial fibrillation on Xarelto, hx UTI, hx pneumonia who presents to the ER via EMS from [facility] after a fall with headstrike. Patient is a poor historian. She reports falling down and hitting her head but cannot elaborate on the circumstances surrounding the fall. She thinks she was lightheaded and dizzy. She denies tripping over anything. She also reports falling yesterday and has a moderate sized bruise on her right lower forearm. Her only complaint is a headache. No neck pain. She rides in a cervical collar. For EMS patient was hypotensive 90s over 50s. IV access was obtained and IV fluids were started. Patient noted to have some mild left-sided weakness on arrival. MD complaint: Fall with head strike, headache, hypotension Onset (ago): minute(s) Location: head Radiation: non-radiation Severity: moderate Quality: aching Pain Consistency: constant Relieving factors: none Exacerbating factors: none Associated symptoms: confusion, headaches and weakness Treatments prior to arrival: other (IVF) Related Data Home Medications Medication Instructions Recorded Confirmed carbidopa 25 mg-levodopa 100 mg 1 tab PO QID 09/04/20 02/02/21 tablet (Sinemet) digoxin 125 mcg (0.125 mg) tablet 125 mcg PO DAILY 09/04/20 02/02/21 fluvoxamine 25 mg tablet 25 mg PO BEDTIME 09/04/20 02/02/21 furosemide 40 mg tablet (Lasix) 40 mg PO DAILY 09/04/20 02/02/21 lactase 3,000 unit tablet (Lactaid) 9,000 unit PO AC 09/04/20 02/02/21 metoprolol tartrate 50 mg tablet 50 mg PO BID 09/04/20 02/02/21 risperidone 2 mg tablet (Risperdal) 2 mg PO BID 09/04/20 02/02/21 rivaroxaban 20 mg tablet (Xarelto) 20 mg PO QPM 09/04/20 02/02/21 sennosides 8.6 mg tablet (senna) 8.6 mg PO DAILY PRN 09/04/20 02/02/21 simvastatin 20 mg tablet 20 mg PO BEDTIME 09/04/20 02/02/21 valproic acid 250 mg capsule 500 mg PO DAILY 09/04/20 02/02/21 acetaminophen 325 mg tablet 650 mg PO Q6H PRN 09/05/20 02/02/21 bisacodyl 10 mg rectal suppository 10 mg UT DAILY PRN 09/05/20 02/02/21 loperamide 2 mg tablet 2 mg PO Q4H PRN 09/05/20 02/02/21 valproic acid 250 mg capsule 1,000 mg PO BEDTIME 09/05/20 02/02/21 Allergies Allergy/AdvReac Type Severity Reaction Status Date / Time lactose Allergy Mild Unknown Verified 09/04/20 17:42 Review of Systems Review of Systems: Constitutional: No Fever, No Chills ENT/Mouth: No sore throat, No Rhinorrhea, No Swallowing Difficulty Eyes: No Eye Pain, No Swelling, No Redness Cardiovascular: No Chest Pain, No SOB, No Orthopnea, No Edema Respiratory: No Cough, No Sputum, No Wheezing, No dyspnea Gastrointestinal: No Nausea, No Vomiting, No Diarrhea, No abdominal Pain, No Hematochezia, No Melena Genitourinary: No Dysuria, No Urinary Frequency, No Hematuria Musculoskeletal: No joint pain, No Myalgias Skin: No Skin Lesions, No rash Neuro: No Weakness, No Numbness, + Dizziness, + Headache Psych: No Anxiety/Panic, No Depression Heme/Lymph: + Bruising, No Lymphadenopathy Endocrine: No Polyuria, No Polydipsia PMFSH Past Medical History Attestation statement: The following information was validated with the patient. Medical History Atrial fibrillation Parkinsons Schizoaffective disorder Social History Social History Household Members: None and Other Housing: Other Housing Other:: [facility] Alcohol intake: never Patient Tobacco Use Status: Never used Tobacco Advance Directives: No Advance Directives Information Provided: No Patient : No service: No Current occupational status: disabled Physical Exam Vital Signs: Vital Signs: Last Vital Signs Temp 98.7 F 02/02/21 10:47 Pulse 81 02/02/21 10:47 Resp 18 02/02/21 10:47 BP 97/43 L 02/02/21 10:47 Pulse Ox 98 02/02/21 10:47 Body Mass Index 35.9 Appearance: Alert. Oriented X2. No acute distress. Head: Normocephalic atraumatic Eyes: Pupils equal, round and reactive to light. ENT: Pharynx normal. Neck: Cervical collar in place CVS: Irregularly irregular Pulses normal. Respiratory: No respiratory distress. Breath sounds normal. No chest wall tenderness Abdomen: Soft and nontender. +BS x4 pelvis is stable nontender Skin: Skin warm and dry. Normal skin color. Normal skin turgor. No rashes. Extremities: Generalized nonpitting lower extremity edema. Right distal forearm with blowing ecchymosis with minimal tenderness, no deformity, 2+ radial pulse no wounds. Neuro: Oriented X 2. Strength equal and symmetrical throughout. Normal steward/stewardess second class strength. Able to lift both legs off the bed for short time. No pronator drift. Generalized weakness noted nonfocal. Delayed responses at times requires asking multiple times to answer. Course Course Course Narrative: 60-year-old female with a history of Parkinson's, schizoaffective, AFib on Xarelto coming in with fall with head strike today. She was dizzy and lightheaded prior. She also to fall yesterday with some bruising on her right forearm. Doubt fracture. Concern for possible ICH. Stat CT head and neck has been ordered. Will need to confirm her baseline mental status as she had some transient left-sided weakness on arrival and is delayed to answer some questions. Neuro exam overall nonfocal. She was hypotensive 90s/ 50s for EMS. Getting IV fluids. Will get septic workup, history of UTI pneumonia in the past. EKG with some ST depressions in V1 through V5, upon review this is old from prior August 2020. She is denying chest pain or shortness of breath. Reevaluation(s) Reevaluation #1: 12pm - Lab workup showing some mild worsening anemia with H&H of 10 and 32. She has a leukocytosis of 15.6 and some chronic mild thrombocytopenia. She has an elevated lactate at 2.3. Renal function is normal. Her chest x-ray showed no evidence of pneumonia. Her urinalysis was negative for infection. She has rhabdomyolysis with CKs of 21,000. At this time there is no source of an infection. Continue IV fluids. Anticipate admission. Reevaluation #2: 1pm: CT head and neck showing no ICH. Cervical spine CT scan showing significant amount of free air in the paraspinous soft tissues. No traumatic injury seen. Cervical collar was removed and patient was re-examined. She has some tenderness on the right lateral lower cervical area without any overlying erythema, crepitus, deformity. She is kyphotic. Given the presence of free air in the neck there was concern for possible abscess. Will proceed with CT scan with IV contrast for further evaluation. Will cover broadly with IV vancomycin and IV Zosyn. Case discussed briefly with Dr. medina her primary from [facility]. Reevaluation #3: 3:30 - repeat CT scan of the soft tissues of the neck showed the free air is no longer present. Unclear etiology. Will need to consider MRI for further evaluation of possible abscess. She is getting IV fluids for her rhabdomyolysis. Will plan for admission for further management and workup. Dr. Bourne has been tired exit for admission, Dr. medina updated via [facility] Decision Making Lab Data Result diagrams: 02/02/21 11:16 02/02/21 11:16 Labs: Lab Results 02/02/21 02/02/21 02/02/21 Range/Units 10:58 11:16 11:16 WBC 15.6 H (4.8-10.8) X10*3/uL RBC 3.38 L (4.20-5.50) X10*6/uL Hgb 10.8 L (12.0-16.0) g/dl Hct 32.6 L (37-47) % MCV 96.4 (80-98) fL MCH 32.0 (27.0-33.0) pg MCHC 33.1 (31.0-35.0) g/dl RDW 13.9 (11.0-16.0) % Plt Count 148 L (160-400) X10*3/uL MPV 9.6 (9.4-12.3) fL Immature Gran % (Auto) 0.9 H (0.0-0.4) % Neut % (Auto) 82.4 H (45-73) % Lymph % (Auto) 6.6 L (20-40) % [place] % (Auto) 9.9 (2-11) % Eos % (Auto) 0.0 (0-4) % Baso % (Auto) 0.2 (0-2) % Lymph # (Auto) 1.0 L (1.2-4.9) X10*3/uL [place] # (Auto) 1.6 H (0.1-1.2) X10*3/uL Eos # (Auto) 0.0 (0.0-0.4) X10*3/uL Baso # (Auto) 0.0 (0.0-0.2) X10*3/uL Abs Immat Gran (auto) 0.14 H (0.00-0.03) X10*3/uL Absolute Neuts (auto) 12.9 H (2.0-8.3) X10*3/uL Absolute Nucleated RBC 0.000 (0.0-0.012) X10*3/uL Nucleated RBC % (auto) 0.0 (0.0-0.2) /100WBC Smear Tech's Comments VERIFIED ESR (0-20) MM/HR PT 14.4 H (9.9-13.0) SEC INR 1.3 H (0.9-1.1) APTT 27.7 (24.1-38.0) SEC Sodium (135-145) mmol/L Potassium (3.3-5.1) mmol/L Chloride (96-108) mmol/L Carbon Dioxide (22-29) mmol/L Anion Gap (12-20) BUN (9-16) mg/dL Creatinine (0.5-1.4) mg/dL Estim Creat Clear Calc Estimated GFR POC Glucose 127 H (60-115) mg/dL Random Glucose (60-115) mg/dL Lactic Acid (0.5-2.0) mmol/L Lactic Acid Fup @ 2Hr (0.5-2.0) mmol/L Calcium (8.4-10.2) mg/dL Magnesium (1.6-2.6) mg/dL Total Bilirubin (0.0-1.0) mg/dL Direct Bilirubin (0.0-0.5) mg/dL AST (5-31) U/L ALT (0-31) U/L Alkaline Phosphatase (39-117) U/L Total Creatine Kinase (26-140) U/L Troponin I High Sens (<3.5-17.0) ng/L C-Reactive Protein (< or = 0.50) mg/dL B-Natriuretic Peptide (<100) pg/mL Total Protein (6.5-8.0) g/dL Albumin (3.5-5.0) g/dL Urine Color Urine Appearance Urine pH (5.0-8.0) Ur Specific [place] (1.005-1.025) Urine Protein (NEG-TRACE) MG/DL Urine Glucose (UA) (NEG) MG/DL Urine Ketones (NEG) MG/DL Urine Blood (NEG) Urine Nitrite (NEG) Ur Leukocyte Esterase (NEG) COVID-19 ([facility]) (Negative) COVID-19 Clin Com 02/02/21 02/02/21 02/02/21 Range/Units 11:16 11:16 11:16 WBC (4.8-10.8) X10*3/uL RBC (4.20-5.50) X10*6/uL Hgb (12.0-16.0) g/dl Hct (37-47) % MCV (80-98) fL MCH (27.0-33.0) pg MCHC (31.0-35.0) g/dl RDW (11.0-16.0) % Plt Count (160-400) X10*3/uL MPV (9.4-12.3) fL Immature Gran % (Auto) (0.0-0.4) % Neut % (Auto) (45-73) % Lymph % (Auto) (20-40) % [place] % (Auto) (2-11) % Eos % (Auto) (0-4) % Baso % (Auto) (0-2) % Lymph # (Auto) (1.2-4.9) X10*3/uL [place] # (Auto) (0.1-1.2) X10*3/uL Eos # (Auto) (0.0-0.4) X10*3/uL Baso # (Auto) (0.0-0.2) X10*3/uL Abs Immat Gran (auto) (0.00-0.03) X10*3/uL Absolute Neuts (auto) (2.0-8.3) X10*3/uL Absolute Nucleated RBC (0.0-0.012) X10*3/uL Nucleated RBC % (auto) (0.0-0.2) /100WBC Smear Tech's Comments ESR (0-20) MM/HR PT (9.9-13.0) SEC INR (0.9-1.1) APTT (24.1-38.0) SEC Sodium 132 L (135-145) mmol/L Potassium 3.8 (3.3-5.1) mmol/L Chloride 96 (96-108) mmol/L Carbon Dioxide 25 (22-29) mmol/L Anion Gap 15 (12-20) BUN 15 (9-16) mg/dL Creatinine 0.83 (0.5-1.4) mg/dL Estim Creat Clear Calc 85.3 Estimated GFR > 60 POC Glucose (60-115) mg/dL Random Glucose 121 H (60-115) mg/dL Lactic Acid 2.3 H* (0.5-2.0) mmol/L Lactic Acid Fup @ 2Hr (0.5-2.0) mmol/L Calcium 8.2 L D (8.4-10.2) mg/dL Magnesium 1.9 (1.6-2.6) mg/dL Total Bilirubin 0.7 (0.0-1.0) mg/dL Direct Bilirubin 0.3 (0.0-0.5) mg/dL AST 22 D (5-31) U/L ALT < 6 (0-31) U/L Alkaline Phosphatase 49 D (39-117) U/L Total Creatine Kinase 1756 H (26-140) U/L Troponin I High Sens 28.1 H* D (<3.5-17.0) ng/L C-Reactive Protein 21.11 H (< or = 0.50) mg/dL B-Natriuretic Peptide 111 H (<100) pg/mL Total Protein 5.4 L (6.5-8.0) g/dL Albumin 3.0 L D (3.5-5.0) g/dL Urine Color Urine Appearance Urine pH (5.0-8.0) Ur Specific [place] (1.005-1.025) Urine Protein (NEG-TRACE) MG/DL Urine Glucose (UA) (NEG) MG/DL Urine Ketones (NEG) MG/DL Urine Blood (NEG) Urine Nitrite (NEG) Ur Leukocyte Esterase (NEG) COVID-19 ([facility]) (Negative) COVID-19 Clin Com 02/02/21 02/02/21 02/02/21 Range/Units 11:16 11:16 12:29 WBC (4.8-10.8) X10*3/uL RBC (4.20-5.50) X10*6/uL Hgb (12.0-16.0) g/dl Hct (37-47) % MCV (80-98) fL MCH (27.0-33.0) pg MCHC (31.0-35.0) g/dl RDW (11.0-16.0) % Plt Count (160-400) X10*3/uL MPV (9.4-12.3) fL Immature Gran % (Auto) (0.0-0.4) % Neut % (Auto) (45-73) % Lymph % (Auto) (20-40) % [place] % (Auto) (2-11) % Eos % (Auto) (0-4) % Baso % (Auto) (0-2) % Lymph # (Auto) (1.2-4.9) X10*3/uL [place] # (Auto) (0.1-1.2) X10*3/uL Eos # (Auto) (0.0-0.4) X10*3/uL Baso # (Auto) (0.0-0.2) X10*3/uL Abs Immat Gran (auto) (0.00-0.03) X10*3/uL Absolute Neuts (auto) (2.0-8.3) X10*3/uL Absolute Nucleated RBC (0.0-0.012) X10*3/uL Nucleated RBC % (auto) (0.0-0.2) /100WBC Smear Tech's Comments ESR 55 H (0-20) MM/HR PT (9.9-13.0) SEC INR (0.9-1.1) APTT (24.1-38.0) SEC Sodium (135-145) mmol/L Potassium (3.3-5.1) mmol/L Chloride (96-108) mmol/L Carbon Dioxide (22-29) mmol/L Anion Gap (12-20) BUN (9-16) mg/dL Creatinine (0.5-1.4) mg/dL Estim Creat Clear Calc Estimated GFR POC Glucose (60-115) mg/dL Random Glucose (60-115) mg/dL Lactic Acid (0.5-2.0) mmol/L Lactic Acid Fup @ 2Hr (0.5-2.0) mmol/L Calcium (8.4-10.2) mg/dL Magnesium (1.6-2.6) mg/dL Total Bilirubin (0.0-1.0) mg/dL Direct Bilirubin (0.0-0.5) mg/dL AST (5-31) U/L ALT (0-31) U/L Alkaline Phosphatase (39-117) U/L Total Creatine Kinase (26-140) U/L Troponin I High Sens (<3.5-17.0) ng/L C-Reactive Protein (< or = 0.50) mg/dL B-Natriuretic Peptide (<100) pg/mL Total Protein (6.5-8.0) g/dL Albumin (3.5-5.0) g/dL Urine Color YELLOW Urine Appearance HAZY Urine pH 6.0 (5.0-8.0) Ur Specific [place] <= 1.005 (1.005-1.025) Urine Protein TRACE (NEG-TRACE) MG/DL Urine Glucose (UA) NEG (NEG) MG/DL Urine Ketones NEG (NEG) MG/DL Urine Blood NEG (NEG) Urine Nitrite NEG (NEG) Ur Leukocyte Esterase NEG (NEG) COVID-19 ([facility]) Negative (Negative) COVID-19 Clin Com See Note 02/02/21 02/02/21 Range/Units 13:43 14:19 WBC (4.8-10.8) X10*3/uL RBC (4.20-5.50) X10*6/uL Hgb (12.0-16.0) g/dl Hct (37-47) % MCV (80-98) fL MCH (27.0-33.0) pg MCHC (31.0-35.0) g/dl RDW (11.0-16.0) % Plt Count (160-400) X10*3/uL MPV (9.4-12.3) fL Immature Gran % (Auto) (0.0-0.4) % Neut % (Auto) (45-73) % Lymph % (Auto) (20-40) % [place] % (Auto) (2-11) % Eos % (Auto) (0-4) % Baso % (Auto) (0-2) % Lymph # (Auto) (1.2-4.9) X10*3/uL [place] # (Auto) (0.1-1.2) X10*3/uL Eos # (Auto) (0.0-0.4) X10*3/uL Baso # (Auto) (0.0-0.2) X10*3/uL Abs Immat Gran (auto) (0.00-0.03) X10*3/uL Absolute Neuts (auto) (2.0-8.3) X10*3/uL Absolute Nucleated RBC (0.0-0.012) X10*3/uL Nucleated RBC % (auto) (0.0-0.2) /100WBC Smear Tech's Comments ESR (0-20) MM/HR PT (9.9-13.0) SEC INR (0.9-1.1) APTT (24.1-38.0) SEC Sodium (135-145) mmol/L Potassium (3.3-5.1) mmol/L Chloride (96-108) mmol/L Carbon Dioxide (22-29) mmol/L Anion Gap (12-20) BUN (9-16) mg/dL Creatinine (0.5-1.4) mg/dL Estim Creat Clear Calc Estimated GFR POC Glucose (60-115) mg/dL Random Glucose (60-115) mg/dL Lactic Acid (0.5-2.0) mmol/L Lactic Acid Fup @ 2Hr 1.7 (0.5-2.0) mmol/L Calcium (8.4-10.2) mg/dL Magnesium (1.6-2.6) mg/dL Total Bilirubin (0.0-1.0) mg/dL Direct Bilirubin (0.0-0.5) mg/dL AST (5-31) U/L ALT (0-31) U/L Alkaline Phosphatase (39-117) U/L Total Creatine Kinase (26-140) U/L Troponin I High Sens 19.9 H* (<3.5-17.0) ng/L C-Reactive Protein (< or = 0.50) mg/dL B-Natriuretic Peptide (<100) pg/mL Total Protein (6.5-8.0) g/dL Albumin (3.5-5.0) g/dL Urine Color Urine Appearance Urine pH (5.0-8.0) Ur Specific [place] (1.005-1.025) Urine Protein (NEG-TRACE) MG/DL Urine Glucose (UA) (NEG) MG/DL Urine Ketones (NEG) MG/DL Urine Blood (NEG) Urine Nitrite (NEG) Ur Leukocyte Esterase (NEG) COVID-19 ([facility]) (Negative) COVID-19 Clin Com ECG Data Attestation: I personally reviewed and interpreted this ECG as follows: Prior ECG tracings: available for review Interpretation: Atrial fibrillation, 77 beats per minute, ST depressions in V3 through V6, this is old compared to prior. No ST segment elevations. Critical Care Time Critical Care Time Critical Care Time: Yes Total Critical Care Time: 38 Attestation: I have personally provided critical care time exclusive of time spent on separately billable procedures. Time includes review of lab data, radiology results, discussion with consultants, and monitoring for potential decompensation. Intervention performed as documented. Discharge Plan Discharge Clinical Impression: Rhabdomyolysis, Dizziness, Hypotension, Fall Patient Disposition: Admitted As Inpatient Prescriptions: No Action furosemide [Lasix] 40 mg Tablet 40 mg PO DAILY RF: 0 sennosides [senna] 8.6 mg Tablet 8.6 mg PO DAILY PRN (Reason: Constipation) RF: 0 risperidone [Risperdal] 2 mg Tablet 2 mg PO BID RF: 0 fluvoxamine 25 mg Tablet 25 mg PO BEDTIME RF: 0 simvastatin 20 mg Tablet 20 mg PO BEDTIME RF: 0 metoprolol tartrate 50 mg Tablet 50 mg PO BID RF: 0 lactase [Lactaid] 3,000 unit Tablet 9,000 unit PO AC RF: 0 digoxin 125 mcg (0.125 mg) Tablet 125 mcg PO DAILY RF: 0 carbidopa-levodopa [Sinemet] 25-100 mg Tablet 1 tab PO QID RF: 0 valproic acid 250 mg Capsule 500 mg PO DAILY RF: 0 Xarelto 20 mg Tablet 20 mg PO QPM RF: 0 acetaminophen 325 mg Tablet 650 mg PO Q6H PRN (Reason: Pain) RF: 0 loperamide 2 mg Tablet 2 mg PO Q4H PRN (Reason: Diarrhea) RF: 0 valproic acid 250 mg Capsule 1,000 mg PO BEDTIME RF: 0 bisacodyl 10 mg Suppository 10 mg UT DAILY PRN (Reason: Constipation) RF: 0
[2021-02-02] MEDS: 0.9 % Sodium Chloride 1,000 ML 999 ML IVCONT ×2 (11:13→16:23)
[2021-02-02 11:29] LABS: Basophils Percent Auto 0.2 % (0-2); Hematocrit 32.6 % (37-47); Hemoglobin 10.8 g/dl (12.0-16.0); Imm Gran Abs Auto 0.14 X10*3/uL (0.00-0.03); Imm Gran Pct Auto 0.9 % (0.0-0.4); Lymphocytes Percent Auto 6.6 % (20-40); MANUAL DIFF FLAG SCAN; Mean Corpuscular HGB Conc 33.1 g/dl (31.0-35.0); Mean Corpuscular Volume 96.4 fL (80-98); Mean Platelet Volume 9.6 fL (9.4-12.3); Monocytes Absolute Auto 1.6 X10*3/uL (0.1-1.2); Monocytes Percent Auto 9.9 % (2-11); Neutrophils Absolute Auto 12.9 X10*3/uL (2.0-8.3); Neutrophils Percent Auto 82.4 % (45-73); Platelet Count 148 X10*3/uL (160-400); Red Blood Count 3.38 X10*6/uL (4.20-5.50); Red Cell Distribution Width 13.9 % (11.0-16.0); SCAN SMEAR FLAG 1; White Blood Count 15.6 X10*3/uL (4.8-10.8)
[2021-02-02 11:35] LABS: INTERNATIONAL NORM RATIO 1.3 (0.9-1.1); Prothrombin Time 14.4 SEC (9.9-13.0)
[2021-02-02 11:38] LABS: Partial Thromboplastin Time 27.7 SEC (24.1-38.0)
[2021-02-02 11:52] LABS: SLIDE REVIEW VERIFIED
[2021-02-02 11:54] LABS: Alanine Aminotransferase < 6 U/L (0-31); Alkaline Phosphatase 49 U/L (39-117); Anion Gap 15 (12-20); Aspartate Amino Transferase 22 U/L (5-31); Bilirubin Direct 0.3 mg/dL (0.0-0.5); Bilirubin Total 0.7 mg/dL (0.0-1.0); Blood Urea Nitrogen 15 mg/dL (9-16); Calcium 8.2 mg/dL (8.4-10.2); Carbon Dioxide 25 mmol/L (22-29); Chloride 96 mmol/L (96-108); Creatinine Clr Calc Pharmacy 85.3; Estimated Glomerular Filt Rate > 60; Glucose Random 121 mg/dL (60-115); Magnesium 1.9 mg/dL (1.6-2.6); Potassium 3.8 mmol/L (3.3-5.1); Sodium 132 mmol/L (135-145); Total Protein 5.4 g/dL (6.5-8.0)
[2021-02-02 11:55] LABS: B Type Natriuretic Peptide 111 pg/mL (<100); Lactic Acid 2.3 mmol/L (0.5-2.0); Troponin-I High Sensitivity 28.1 ng/L (<3.5-17.0)
[2021-02-02 11:58] LABS: COVID-19 Test Negative (Negative); IDNOW Serial# 9DD0AD1C
[2021-02-02 12:00] VITALS: BP 116/82; BP 142/61; PULSE 61; PULSE 87; RESP 18; TEMP 36.6; O2SAT 100; O2SAT 98
[2021-02-02 12:37] LABS: Appearance Urine HAZY; Color Urine YELLOW; Glucose Urine UA NEG (NEG); Leukocyte Esterase Urine NEG (NEG); Nitrite Urine NEG (NEG); Specific Gravity - Urine <= 1.005 (1.005-1.025); Urine Blood NEG (NEG); Urine Ketones NEG (NEG); Urine Protein TRACE MG/DL (NEG-TRACE)
[2021-02-02 13:24] LABS: Reflex Lactate? Lactic Acid Added
[2021-02-02] MEDS: Piperacillin Sodium/Tazobactam 3.375 GM in 0.9 % Sodium Chloride 50 ML IV (13:43)
[2021-02-02 13:51] LABS: C Reactive Protein 21.11 mg/dL (< or = 0.50)
[2021-02-02 14:00] VITALS: BP 120/52; BP 125/67; PULSE 61; PULSE 82; RESP 18; TEMP 36.1; TEMP 36.6; O2SAT 98
[2021-02-02 14:00] LABS: ~Lactic Acid-LAB USE ONLY 1.7 mmol/L (0.5-2.0)
[2021-02-02] MEDS: vancomycin HCL 1,250 MG in 0.9 % Sodium Chloride 250 ML 166.67 MG IV (14:24)
[2021-02-02 14:28] LABS: Erythrocyte Sedimentation Rate 55 MM/HR (0-20)
[2021-02-02 14:55] LABS: Troponin-I High Sensitivity 19.9 ng/L (<3.5-17.0)
--- NOTE | 2021-02-02 17:06 | PM.IMHP ---
History of Present Illness Date of Service: 02/02/21 Chief Complaint: fall 60 y/o female with history of schizoaffective disorder, Parkinson's disease, atrial fibrillation on Xarelto, hx UTI. [facility] in to be because of a fall not reported as witnessed, the cicumstances of the fall is not well elucidated and patient is unable to give a full account of what happed as she a poor historian. She does endorse hitting her head but not sure of being dizzy, sob, or chest pain. She reports some headache. She had a head CT showing no hemorrhage, C-spine CT shows no fracture o or dislocation yet shows mount of soft tissue gas is identified within the paraspinal as well as intraspinal soft tissue mostly to the right of the midline, indeterminate etiology. a dedicated Cervical Spine CT later showe no evidence of right paraspinal gas. She has elevated WBC but no fever and no source of infection. Last BP is 97/43. Troponin I is 19, she has no chest pain. CPK is 1756. She is giving Zosyn but there is no mention of why. Review of Systems Review of Systems: Gen: no fever Resp: no sob, no cough CV: no chest, no DAVIS, no leg edema GI: No n/v, no abd pain Neuro: No confusion Yes all other systems are reviewed and are negative [facility] Medical History Atrial fibrillation Parkinsons Schizoaffective disorder Pertinent family history: Patient is not able tell me of her family history Social History Household Members: Unknown / Unable to assess Housing: Other Housing Other:: [facility] Do you presently have visiting nurse or other home services: No Unable to assess alcohol history related to: Unknown Alcohol intake: never Patient Tobacco Use Status: Never used Tobacco Use of substances other than those prescribed or required for medical reasons: No Currently Displaying Signs/Symptoms of Drug Intoxication Withdrawal: No Have you been hit, kicked, punched, or otherwise hurt by someone within the past year? If so, by whom?: No Do you feel safe in your current relationship?: No Current Relationship Is there a partner from a previous relationship who is making you feel unsafe now?: No Advance Directives: No Advance Directives Information Provided: No Do you have thoughts of harming others: None Do you have a plan to hurt others: No Plan Recently lost weight without trying: No Patient : No service: No Current occupational status: disabled Meds Allergies Allergy/AdvReac Type Severity Reaction Status Date / Time lactose Allergy Mild Unknown Verified 09/04/20 17:42 Active Medications: Current Medications Acetaminophen (Acetaminophen 325 Mg Tablet) 650 mg PO Q6H PRN PRN Reason: Pain Bisacodyl (Bisacodyl 10 Mg Supp.Rect) 10 mg DE DAILY PRN PRN Reason: Constipation Carbidopa/Levodopa (Carbidopa/Levodopa 25/100 Tablet) 1 tab PO QID [facility] Digoxin (Digoxin 0.125 Mg Tablet) 0.125 mg PO DAILY [facility] Furosemide (Furosemide 40 Mg Tablet) 40 mg PO DAILY [facility]; Protocol Lactase (Lactase Tablet) tab PO AC [facility] Metoprolol Tartrate (Metoprolol Tartrate 50 Mg Tablet) 50 mg PO BID [facility]; Protocol Non-Formulary Medication (Fluvoxamine) 25 mg PO BEDTIME [facility] Non-Formulary Medication (Loperamide) 2 mg PO Q4H PRN PRN Reason: Diarrhea Non-Formulary Medication (Simvastatin) 20 mg PO BEDTIME [facility] Pharmacy Consult (Consult Rx Perform Med Rec) 1 each MISCELLANE ONCE PRN PRN Reason: Consult order Risperidone (Risperidone 2 Mg Tablet) 2 mg PO BID [facility] Senna (Sennosides 8.6 Mg Tablet) 8.6 mg PO DAILY PRN PRN Reason: Constipation Valproic Acid (Valproic Acid 250 Mg Capsule) 500 mg PO DAILY [facility] Valproic Acid (Valproic Acid 250 Mg Capsule) 1,000 mg PO BEDTIME [facility] Home Medications Medication Instructions Recorded Confirmed Last Taken Type carbidopa 25 mg-levodopa 100 mg 1 tab PO QID 09/04/20 02/02/21 Unknown History tablet (Sinemet) digoxin 125 mcg (0.125 mg) tablet 125 mcg PO DAILY 09/04/20 02/02/21 Unknown History fluvoxamine 25 mg tablet 25 mg PO BEDTIME 09/04/20 02/02/21 Unknown History furosemide 40 mg tablet (Lasix) 40 mg PO DAILY 09/04/20 02/02/21 Unknown History lactase 3,000 unit tablet (Lactaid) 9,000 unit PO AC 09/04/20 02/02/21 Unknown History metoprolol tartrate 50 mg tablet 50 mg PO BID 09/04/20 02/02/21 Unknown History risperidone 2 mg tablet (Risperdal) 2 mg PO BID 09/04/20 02/02/21 Unknown History rivaroxaban 20 mg tablet (Xarelto) 20 mg PO QPM 09/04/20 02/02/21 Unknown History sennosides 8.6 mg tablet (senna) 8.6 mg PO DAILY PRN 09/04/20 02/02/21 Unknown History simvastatin 20 mg tablet 20 mg PO BEDTIME 09/04/20 02/02/21 Unknown History valproic acid 250 mg capsule 500 mg PO DAILY 09/04/20 02/02/21 Unknown History acetaminophen 325 mg tablet 650 mg PO Q6H PRN 09/05/20 02/02/21 Unknown History bisacodyl 10 mg rectal suppository 10 mg DE DAILY PRN 09/05/20 02/02/21 Unknown History loperamide 2 mg tablet 2 mg PO Q4H PRN 09/05/20 02/02/21 Unknown History valproic acid 250 mg capsule 1,000 mg PO BEDTIME 09/05/20 02/02/21 Unknown History Physical Exam Vital Signs and Narrative: Vital Signs: Last Vital Signs Temp 98.7 F 02/02/21 10:47 Pulse 81 02/02/21 10:47 Resp 18 02/02/21 10:47 BP 97/43 L 02/02/21 10:47 Pulse Ox 98 02/02/21 10:47 Body Mass Index 35.9 Constitutional: Alert, in no distress, overweight. Mental Status: Oriented to person, place and time. Eyes: Pupils are equal, round and reactive to light. Ear, Nose and Throat: Oropharynx clear, mucous membranes moist. Ears and nose without eformities. Trachea midline. Respiratory: Clear to auscultation. No wheezing, rales or rhonchi. Cardiovascular: S1 S2 regular. No murmurs, rubs or gallops. Gastrointestinal: Abdomen soft, non-tender, non-distended. Normal bowel sounds.? Neurologic: Cranial nerves II-XII grossly intact. No focal neurological deficits. Moves all extremities spontaneously.? Skin: No rashes or lesions.? Musculoskeletal: No cyanosis or clubbing. Psychiatric: Normal mood and affect? Results Labs CBC and Chem 7: 02/02/21 18:23 02/02/21 11:16 Labs: Laboratory Results - last 24 hr 02/02/21 02/02/21 02/02/21 10:58 11:16 11:16 MCV 96.4 MCH 32.0 MCHC 33.1 RDW 13.9 Plt Count 148 L MPV 9.6 Immature Gran % (Auto) 0.9 H Neut % (Auto) 82.4 H Lymph % (Auto) 6.6 L [place] % (Auto) 9.9 Eos % (Auto) 0.0 Baso % (Auto) 0.2 Lymph # (Auto) 1.0 L [place] # (Auto) 1.6 H Eos # (Auto) 0.0 Baso # (Auto) 0.0 Abs Immat Gran (auto) 0.14 H Absolute Neuts (auto) 12.9 H Absolute Nucleated RBC 0.000 Nucleated RBC % (auto) 0.0 Smear Tech's Comments VERIFIED ESR PT 14.4 H INR 1.3 H APTT 27.7 Anion Gap Estim Creat Clear Calc Estimated GFR POC Glucose 127 H Random Glucose Lactic Acid Lactic Acid Fup @ 2Hr Calcium Magnesium Total Bilirubin Direct Bilirubin AST ALT Alkaline Phosphatase Total Creatine Kinase Troponin I High Sens C-Reactive Protein B-Natriuretic Peptide Total Protein Albumin Urine Color Urine Appearance Urine pH Ur Specific R[place] Urine Protein Urine Glucose (UA) Urine Ketones Urine Blood Urine Nitrite Ur Leukocyte Esterase COVID-19 ([facility]) COVID-19 Clin Com 02/02/21 02/02/21 02/02/21 11:16 11:16 11:16 MCV MCH MCHC RDW Plt Count MPV Immature Gran % (Auto) Neut % (Auto) Lymph % (Auto) [place] % (Auto) Eos % (Auto) Baso % (Auto) Lymph # (Auto) [place] # (Auto) Eos # (Auto) Baso # (Auto) Abs Immat Gran (auto) Absolute Neuts (auto) Absolute Nucleated RBC Nucleated RBC % (auto) Smear Tech's Comments ESR PT INR APTT Anion Gap 15 Estim Creat Clear Calc 85.3 Estimated GFR > 60 POC Glucose Random Glucose 121 H Lactic Acid 2.3 H* Lactic Acid Fup @ 2Hr Calcium 8.2 L D Magnesium 1.9 Total Bilirubin 0.7 Direct Bilirubin 0.3 AST 22 D ALT < 6 Alkaline Phosphatase 49 D Total Creatine Kinase 1756 H Troponin I High Sens 28.1 H* D C-Reactive Protein 21.11 H B-Natriuretic Peptide 111 H Total Protein 5.4 L Albumin 3.0 L D Urine Color Urine Appearance Urine pH Ur Specific [place] Urine Protein Urine Glucose (UA) Urine Ketones Urine Blood Urine Nitrite Ur Leukocyte Esterase COVID-19 ([facility]) COVID-19 Clin Com 02/02/21 02/02/21 02/02/21 11:16 11:16 12:29 MCV MCH MCHC RDW Plt Count MPV Immature Gran % (Auto) Neut % (Auto) Lymph % (Auto) [place] % (Auto) Eos % (Auto) Baso % (Auto) Lymph # (Auto) [place] # (Auto) Eos # (Auto) Baso # (Auto) Abs Immat Gran (auto) Absolute Neuts (auto) Absolute Nucleated RBC Nucleated RBC % (auto) Smear Tech's Comments ESR 55 H PT INR APTT Anion Gap Estim Creat Clear Calc Estimated GFR POC Glucose Random Glucose Lactic Acid Lactic Acid Fup @ 2Hr Calcium Magnesium Total Bilirubin Direct Bilirubin AST ALT Alkaline Phosphatase Total Creatine Kinase Troponin I High Sens C-Reactive Protein B-Natriuretic Peptide Total Protein Albumin Urine Color YELLOW Urine Appearance HAZY Urine pH 6.0 Ur Specific Rattan <= 1.005 Urine Protein TRACE Urine Glucose (UA) NEG Urine Ketones NEG Urine Blood NEG Urine Nitrite NEG Ur Leukocyte Esterase NEG COVID-19 ([facility]) Negative COVID-19 Clin Com See Note 02/02/21 02/02/21 13:43 14:19 MCV MCH MCHC RDW Plt Count MPV Immature Gran % (Auto) Neut % (Auto) Lymph % (Auto) [place] % (Auto) Eos % (Auto) Baso % (Auto) Lymph # (Auto) [place] # (Auto) Eos # (Auto) Baso # (Auto) Abs Immat Gran (auto) Absolute Neuts (auto) Absolute Nucleated RBC Nucleated RBC % (auto) Smear Tech's Comments ESR PT INR APTT Anion Gap Estim Creat Clear Calc Estimated GFR POC Glucose Random Glucose Lactic Acid Lactic Acid Fup @ 2Hr 1.7 Calcium Magnesium Total Bilirubin Direct Bilirubin AST ALT Alkaline Phosphatase Total Creatine Kinase Troponin I High Sens 19.9 H* C-Reactive Protein B-Natriuretic Peptide Total Protein Albumin Urine Color Urine Appearance Urine pH Ur Specific Rattan Urine Protein Urine Glucose (UA) Urine Ketones Urine Blood Urine Nitrite Ur Leukocyte Esterase COVID-19 ([facility]) COVID-19 Clin Com Imaging Radiologist's Impressions: Impressions Cervical Spine CT 02/02/21 11:02 IMPRESSION: 1. No acute intracranial pathology. 2. No CT evidence of acute cervical spine fracture or traumatic subluxation. 3. Significant amount of soft tissue gas is identified within the paraspinal as well as intraspinal soft tissue mostly to the right of the midline, indeterminate etiology. 4. The visualized right lung apex is remarkable for small right pleural effusion. Forearm X-Ray 02/02/21 11:02 IMPRESSION: 1. The chest radiograph appear unchanged in 09/04/2020. Specifically, no evidence of any displaced rib fracture or pneumothorax present. 2. Technically limited right forearm showing no evidence of any displaced fracture, subluxation or dislocation. No radiopaque foreign body. Head CT 02/02/21 11:02 IMPRESSION: 1. No acute intracranial pathology. 2. No CT evidence of acute cervical spine fracture or traumatic subluxation. 3. Significant amount of soft tissue gas is identified within the paraspinal as well as intraspinal soft tissue mostly to the right of the midline, indeterminate etiology. 4. The visualized right lung apex is remarkable for small right pleural effusion. Chest X-Ray 02/02/21 11:10 IMPRESSION: 1. The chest radiograph appear unchanged in 09/04/2020. Specifically, no evidence of any displaced rib fracture or pneumothorax present. 2. Technically limited right forearm showing no evidence of any displaced fracture, subluxation or dislocation. No radiopaque foreign body. Soft Tissue Neck CT 02/02/21 13:17 IMPRESSION: The previously identified air in the right paraspinal soft tissues on cervical spine CT from earlier the same day is no longer seen. Assessment and Plan (1) Fall: Qualifiers: Encounter type: initial encounter Qualified Code(s): W19.XXXA - Unspecified fall, initial encounter Status: Acute 60 y/o female with history of schizoaffective disorder, Parkinson's disease, atrial fibrillation on Xarelto, hx UTI. [facility] to be because of a fall not reported as witnessed, the cicumstances of the fall is not well elucidated and patient is unable to give a full account of what happed as she a poor historian. She is noted to have elevated CPK, mild increase in troponin, elevated WBC with no source of infection, and Soft tissue gas noted in the right paraspinal of neck 1/ Fall unclear cicumstance, do neuro check. PT eval tomorrow, tele monitoring for arrythmia 2/ Elevated CPK, not quite rhabdomylsis, hydrate and repeat CPK tomorrow 3/ mild increase in troponin, no chest pain, no ECG changes, repeat troponin 4/? Soft tissue gas on C-spine CT not seen on repat CT, cannot tell if it is anything at this time and not able to explain why it was there not there. Discussed with Neuroradiologist at [facility] and indicate that it is likely from venous puncture give that it went away and unlikely result of infection or trauma 5/Elevated Lactic acid, probably from fall , no evidence of sepsis, repeat lactic acid, cultures done, hold Abx for w 6/Chronic afib, rate controlled, hold Xarelto overnight, continue Digoxine and Metoprolol 7/ HLD--continue Lipitor DVT prophylaxis--compression device Quality Stroke Does the patient have a stroke diagnosis?: No VTE Prior VTE?: No VTE Risk Level:: Medical - moderate - high VTE Device Contraindication: N/A - Device Ordered VTE Drug Contraindication: N/A - Med Ordered
[2021-02-02 18:35] LABS: Hematocrit 35.1 % (37-47); Hemoglobin 11.7 g/dl (12.0-16.0); Mean Corpuscular HGB Conc 33.3 g/dl (31.0-35.0); Mean Corpuscular Hemoglobin 31.9 pg (27.0-33.0); Mean Corpuscular Volume 95.6 fL (80-98); Mean Platelet Volume 9.6 fL (9.4-12.3); Platelet Count 135 X10*3/uL (160-400); Red Blood Count 3.67 X10*6/uL (4.20-5.50); Red Cell Distribution Width 13.8 % (11.0-16.0); White Blood Count 11.4 X10*3/uL (4.8-10.8)
[2021-02-02 18:42] LABS: Lactic Acid 1.4 mmol/L (0.5-2.0)
[2021-02-02] MEDS: 0.9 % Sodium Chloride 1,000 ML 125 ML IVCONT ×2 (18:48→23:49)
[2021-02-02 20:30] VITALS: BP 114/53; PULSE 102; RESP 20; TEMP 36.6; O2SAT 96
[2021-02-02 20:54] LABS: Erythrocyte Sedimentation Rate 55 MM/HR (0-20)
[2021-02-02 21:23] VITALS: BP 127/60; PULSE 94; RESP 16; TEMP 37.6; O2SAT 97
[2021-02-02] MEDS: fluvoxaMINE Maleate 50 MG TABLET 25 MG PO (22:03)
[2021-02-02] MEDS: Valproic Acid 250 MG CAPSULE 1000 MG PO (22:05)
[2021-02-02] MEDS: risperiDONE 2 MG TABLET PO (22:05)
[2021-02-02] MEDS: Carbidopa/Levodopa 25/100 TABLET 1 TAB PO (22:05)
[2021-02-02] MEDS: Atorvastatin Calcium 10 MG TABLET PO (22:05)
[2021-02-02] MEDS: Metoprolol Tartrate 50 MG TABLET PO (22:05)
[2021-02-02 22:28] VITALS: BMI 35.9
[2021-02-02 23:31] VITALS: BP 113/53; PULSE 84; RESP 18; TEMP 36.8; O2SAT 98
[2021-02-02] MEDS: 0.9 % Sodium Chloride Flush 3 ML SYRINGE IVFLUSH (23:32)
[2021-02-03] VITALS (7 sets, daily range): BP systolic 119–135; BP diastolic 62–72; PULSE 73–93; RESP 18; TEMP 36.2–36.9; O2SAT 94–97
[2021-02-03] MEDS: 0.9 % Sodium Chloride 1,000 ML 125 ML IVCONT ×2 (07:42→16:54)
[2021-02-03] MEDS: Valproic Acid 250 MG CAPSULE 500 MG PO (07:45)
[2021-02-03] MEDS: Lactase TABLET 3 TAB PO ×2 (07:45→18:46)
[2021-02-03] MEDS: risperiDONE 2 MG TABLET PO ×2 (07:45→20:09)
[2021-02-03] MEDS: Digoxin 0.125 MG TABLET PO (10:03)
[2021-02-03] MEDS: Carbidopa/Levodopa 25/100 TABLET 1 TAB PO ×4 (10:04→20:08)
[2021-02-03] MEDS: Metoprolol Tartrate 50 MG TABLET PO ×2 (10:04→20:09)
[2021-02-03] MEDS: Furosemide 40 MG TABLET PO (10:04)
--- NOTE | 2021-02-03 12:03 | PHA.PROG ---
Admission Date/Time: February 02, 2021 17:04 Indication: BACTERMIA Weight in k kg Adjusted body weight in [place] body weight in K.3 Obesity Dosing Indication % IBW: Serum Creatinine - Last 168 Hours 02/02/21 11:16 Creatinine 0.83 Estimated CrCl and GFR - Last 168 Hours 02/02/21 11:16 Estim Creat Clear Calc 85.3 Estimated GFR > 60 Vancomycin Loading Dose: Current Vancomycin Dosing Regimen: Vancomycin Monitoring using AUC goal of 400 - 600 range with trough as surrogate marker: Date and Time for next Vancomycin Level to be drawn:02/04 @1100 Pharmacist Comments on Vancomycin Plan: Predicted AUC 455, trough 14.7 Vancomycin dosing will take advantage of [employer] as a clinical decision support tool that uses Bayesian modeling to calculate individual patient's pharmacokinetic parameters and forecast the patient's drug concentration time course with the target goal AUC 24 range of 400 - 600 mg/L/hr.
--- NOTE | 2021-02-03 12:47 | HO.PM.IMPN ---
Subjective Subjective Date of Service: 02/04/21 Interval History: Seen in f/u for hypotension, fall, and now gram positive cocci bacteremia with no clear source./ Patient reports feeling better today, but history is very limitted. Review of Systems no fever, no dizziness, no back pain, Physical Exam Vital Signs: Vital Signs: Last Vital Signs Temp 98.4 F 02/03/21 08:00 Pulse 93 02/03/21 10:04 Resp 18 02/03/21 08:00 BP 135/72 02/03/21 10:04 Pulse Ox 95 02/03/21 09:15 Body Mass Index 35.9 General: Alert, oriented to self Resp: CTA bilateral CVS: S1,S2,RRR GI: +BS, NT, no distention Skin: No rash. MSK: no spinal tenderness, Neuro: moving all extremities equally Psych: appropriate affect Objective Data Active Medications Acetaminophen (Acetaminophen 325 Mg Tablet) 650 mg PO Q6H PRN PRN Reason: Pain Atorvastatin Calcium (Atorvastatin Calcium 10 Mg Tablet) 10 mg PO BEDTIME [facility] Last Admin: 02/02/21 22:05 Dose: 10 mg Documented by: BA Bisacodyl (Bisacodyl 10 Mg Supp.Rect) 10 mg [place] DAILY PRN PRN Reason: Constipation Carbidopa/Levodopa (Carbidopa/Levodopa 25/100 Tablet) 1 tab PO QID [facility] Last Admin: 02/03/21 10:04 Dose: 1 tab Documented by: PRANAV Digoxin (Digoxin 0.125 Mg Tablet) 0.125 mg PO DAILY [facility] Last Admin: 02/03/21 10:03 Dose: 0.125 mg Documented by: PRANAV Fluvoxamine Maleate (Fluvoxamine Maleate 50 Mg Tablet) 25 mg PO BEDTIME [facility] Last Admin: 02/02/21 22:03 Dose: 25 mg Documented by: BA Furosemide (Furosemide 40 Mg Tablet) 40 mg PO DAILY [facility]; Protocol Last Admin: 02/03/21 10:04 Dose: 40 mg Documented by: PRANAV Sodium Chloride (Ns) 1,000 mls @ 125 mls/hr IVCONT .Q8H [facility] Last Infusion: 02/03/21 11:12 Dose: 0 mls/hr Documented by: PRANAV Vancomycin HCl 1,000 mg/ (Sodium Chloride) 270 mls @ 270 mls/hr IV Q12H [facility] Lactase (Lactase Tablet) 3 tab PO TIDAC [facility] Last Admin: 02/03/21 07:45 Dose: 3 tab Documented by: JAYJAY Loperamide HCl (Loperamide Hcl 2 Mg Capsule) 2 mg PO Q4H PRN PRN Reason: Diarrhea Metoprolol Tartrate (Metoprolol Tartrate 50 Mg Tablet) 50 mg PO BID [facility]; Protocol Last Admin: 02/03/21 10:04 Dose: 50 mg Documented by: PRANAV Pharmacy Consult (Consult Rx Perform Med Rec) 1 each MISCELLANE ONCE PRN PRN Reason: Consult order Pharmacy Consult (Consult Rx Vancomycin Dosing) 1 each MISCELLANE DAILY PRN PRN Reason: Consult order Risperidone (Risperidone 2 Mg Tablet) 2 mg PO BID [facility] Last Admin: 02/03/21 07:45 Dose: 2 mg Documented by: JAYJAY Senna (Sennosides 8.6 Mg Tablet) 8.6 mg PO DAILY PRN PRN Reason: Constipation Sodium Chloride (0.9 % Sodium Chloride Flush 3 Ml Syringe) 3 ml IVFLUSH QSHIFT [facility] Last Admin: 02/03/21 07:45 Dose: Not Given Documented by: JAYJAY Non-Admin Reason: IV Running Valproic Acid (Valproic Acid 250 Mg Capsule) 500 mg PO DAILY [facility] Last Admin: 02/03/21 07:45 Dose: 500 mg Documented by: JAYJAY Valproic Acid (Valproic Acid 250 Mg Capsule) 1,000 mg PO BEDTIME [facility] Last Admin: 02/02/21 22:05 Dose: 1,000 mg Documented by: BA Labs CBC & Chem 7: 02/02/21 18:23 02/04/21 08:36 Labs: Laboratory Results - last 24 hr 02/02/21 02/02/21 02/02/21 11:16 11:16 13:43 MCV MCH MCHC RDW Plt Count MPV Absolute Nucleated RBC Nucleated RBC % (auto) ESR 55 H Lactic Acid Lactic Acid Fup @ 2Hr 1.7 Troponin I High Sens C-Reactive Protein 21.11 H 02/02/21 02/02/21 02/02/21 14:19 18:23 18:23 MCV 95.6 MCH 31.9 MCHC 33.3 RDW 13.8 Plt Count 135 L MPV 9.6 Absolute Nucleated RBC 0.000 Nucleated RBC % (auto) 0.0 ESR 55 H Lactic Acid Lactic Acid Fup @ 2Hr Troponin I High Sens 19.9 H* C-Reactive Protein 02/02/21 18:23 MCV MCH MCHC RDW Plt Count MPV Absolute Nucleated RBC Nucleated RBC % (auto) ESR Lactic Acid 1.4 Lactic Acid Fup @ 2Hr Troponin I High Sens C-Reactive Protein Microbiology Microbiology Results: Microbiology 02/02/21 12:29 Blood Culture - Preliminary Blood - Venous Prelim: GPC Gram Stain only 02/02/21 12:29 Blood Culture - Preliminary Blood - Venous Prelim: GPC Gram Stain only Assessment and Plan (1) Bacteremia: Status: Acute Assessment and Plan: 60 y/o female with history of schizoaffective disorder, Parkinson's disease, atrial fibrillation on Xarelto, hx UTI. She presented from [facility]? brought in to be? because of a fall not reported as witnessed, the cicumstances of the fall is not well elucidated and patient is unable to give? a full account of what happed as she a poor historian. She does endorse hitting her head but not sure of being dizzy, sob,? or chest pain. She reports some headache. She had a head CT showing no hemorrhage, C-spine CT shows no? fracture o or dislocation yet shows??mount of soft tissue gas is identified within the paraspinal l soft tissue mostly to the right of the midline, indeterminate etiology. a dedicated Cervical Spine CT later showe no evidence of right paraspinal gas. She has elevated WBC but no fever and no? source of infection. Last? BP is 97/43. She was given a dose of Vancomycin and Zosyn and now the next day blood cultures are reported positive 2/2 gram positive cocci with no obvious source of infection Bacteremia without a given source of infection..could be contamination -IV vancomycin, get Echo, get ID consult and repeat blood cultures, get TTE Parspinal soft tissue gas, was no longer present on repeat imaging x 2, and no obivous sings of infection there, will discuss further with ID to see if additional imaging warranted Elevated troponin, repeat was low, recheck, has no check pain Elevated CPK--repeat level Quality Stroke Does the patient have a stroke diagnosis?: No VTE Prior VTE?: No VTE Risk Level:: Medical - moderate - high VTE Device Contraindication: N/A - Device Ordered VTE Drug Contraindication: N/A - Med Ordered
--- NOTE | 2021-02-03 13:01 | MHC.CM.PN ---
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 PT HAS NO HCP OR GUARDIAN PER [facility], PT DECLINES AT THIS TIME. PCP IS JAKE MOSS D/C PLAN: RERUN TO [facility], [facility] FOR BLS TRANSPORT
[2021-02-03] MEDS: vancomycin HCL 1,000 MG in 0.9 % Sodium Chloride 250 ML 270 MG IV (13:05)
[2021-02-03 13:36] LABS: Creatinine Clr Calc Pharmacy 110.7; Estimated Glomerular Filt Rate > 60
[2021-02-03 13:42] LABS: Troponin-I High Sensitivity 10.4 ng/L (<3.5-17.0)
[2021-02-03] MEDS: 0.9 % Sodium Chloride Flush 3 ML SYRINGE IVFLUSH (16:54)
[2021-02-03] MEDS: Valproic Acid 250 MG CAPSULE 1000 MG PO (20:08)
[2021-02-03] MEDS: Atorvastatin Calcium 10 MG TABLET PO (20:09)
[2021-02-03] MEDS: fluvoxaMINE Maleate 50 MG TABLET 25 MG PO (20:09)
[2021-02-04] MEDS: vancomycin HCL 1,000 MG in 0.9 % Sodium Chloride 250 ML 270 MG IV (00:52)
[2021-02-04] MEDS: 0.9 % Sodium Chloride 1,000 ML 125 ML IVCONT ×2 (06:34→17:49)
[2021-02-04 07:30] VITALS: PULSE 77
[2021-02-04] MEDS: Furosemide 40 MG TABLET PO (07:30)
[2021-02-04] MEDS: Valproic Acid 250 MG CAPSULE 500 MG PO (07:30)
[2021-02-04] MEDS: Digoxin 0.125 MG TABLET PO (07:30)
[2021-02-04] MEDS: Metoprolol Tartrate 50 MG TABLET PO ×2 (07:31→20:32)
[2021-02-04] MEDS: risperiDONE 2 MG TABLET PO ×2 (07:31→20:32)
[2021-02-04] MEDS: Carbidopa/Levodopa 25/100 TABLET 1 TAB PO ×4 (07:31→20:32)
[2021-02-04 08:00] VITALS: BP 156/70; PULSE 87; RESP 14; TEMP 37.2; O2SAT 97
--- NOTE | 2021-02-04 08:30 | CA_ITS ---
Transthoracic Echocardiogram Patient (Last, First, Middle): Zahida Sy L Gender: Female Date of : 1960 Age: 60 Procedure Date: 02/04/2021 Procedure Type: Transthoracic Echocardiogram Location: S3E Height: 167.64 cm Weight: 100.7 kg BSA: 2.09 m2 Heart Rate: bpm BP: 124 / 65 mmHg Casino Change Attendant: DINA Referring MD: Rock Juarez MD Symptoms: bacteremia Study Quality: Fair ECG Rhythm: Sinus Conclusions: - Normal left ventricular size and systolic function. - Normal right ventricular cavity size and systolic function. - The left atrium is severely dilated. Findings Left Ventricle Normal left ventricular size and systolic function. There is moderately increased left ventricular wall thickness. The visually estimated ejection fraction is between 60-65%. There is no evidence of regional wall motion abnormalities. Diastolic function is indeterminate on the basis of available data. Right Ventricle Normal right ventricular cavity size and systolic function. Atria The left atrium is severely dilated. Aortic Valve There is a normal trileaflet aortic valve. There is mild calcification of the aortic valve. There is no aortic valve stenosis. There is no aortic valve regurgitation. Mitral Valve The mitral valve appears normal. There is trace mitral valve regurgitation. There is no mitral valve stenosis. Pulmonic Valve The pulmonic valve is likely normal. Tricuspid Valve Normal tricuspid valve structure. There is trace tricuspid valve regurgitation. Indeterminate right atrial pressure. PASP = 29 + right atrial pressure. Great Vessels All visible segments of the aorta are normal in size. The visualized portions of the pulmonary artery and branches are normal. Venous The inferior vena cava was not well visualized. Pericardium/Pleural Normal pericardial structure. There is no evidence of pericardial effusion. Prior Study Comparison No prior study available for comparison. Measurements 2D Linear Measurements IVSd: 1.23 0.6-0.9/0.6-1.0 cm LVIDd: 3.81 3.9-5.3/4.2-5.9 cm LVIDd Index: 1.82 2.4-3.2/2.2-3.1 cm/m2 LVIDs: 2.66 2.0-3.6 cm LVPWd: 1.25 0.7-1.1 cm Ao Root: 3.20 2.1-3.5 cm LA Diam: 3.80 2.7-3.8/3.0-4.0 cm LAIDs Index: 1.82 1.5-2.3 cm/m2 LV Mass: 201.29 67-162/88-224 g LV Mass Index: 96.31 43-95/49-115 g/m2 LVOT Diam: 2.10 3.0+(-)1.3 cm Mitral Valve MV Pk E: 1.04 MV Decel Time: 140.00 E'Lateral: 14.00 E'Medial: 12.40 E/E' Med: 8.40 E/E' Lat: 7.40 PHT: 41.00 MVA PHT: 5.37 Decel [place]: 7.46 Aortic Valve AoV Pk Sukhdev: 1.30 AoV Mn Sukhdev: 0.82 AoV VTI: 0.28 AoV Pk Grad: 7.00 Aov Mn Grad: 3.00 BILLIE Cont.VTI: 2.21 LVOT LVOT Pk Sukhdev: 0.93 LVOT Mn Sukhdev: 0.61 LVOT VTI: 0.18 LVOT Pk Grad: 3.00 LVOT Mn Grad: 2.00 LVOT Diam: 2.10 LVOT Area: 3.46 Diastolic Function MV Pk E: 1.04 E'Medial: 12.40 E/E' Med: 8.40 E' Laterial: 14.00 E/E' Lat: 7.40 Tricuspid Valve TR Pk Sukhdev: 2.69 TR Pk Grad: 29.00 RA Press: 8.00 Great Vessels Aorta Ao Root-2D: 3.20 2.0-3.7 cm Ao Asc: 3.00 2.1-3.4 cm Pulmonary Valve PV Pk Sukhdev: 1.21 Peak PV Grad: 6.00 Updated in Other Vendor System with Status of Final Lamont Juarez MD electronically signed on 02/04/2021 7:33:10 PM with status of Final
[2021-02-04] MEDS: Enoxaparin Sodium 40 MG/0.4 ML SYRINGE SUBCUT (08:58)
[2021-02-04 09:03] LABS: Creatinine Clr Calc Pharmacy 122.1; Estimated Glomerular Filt Rate > 60
--- NOTE | 2021-02-04 09:52 | P.CDIC_ITS ---
CDI Concurrent Query Documentation Clarification: PHYSICIAN'S DOCUMENTATION REQUEST Date of Query: 02/04/21 0952 Patient Name: Zahida Sy Admit Date: 02/02/21 Dear Doctor, A review of the medical record indicates additional documentation may be needed. Please review below and update the documentation accordingly. Clinical Indicators: Current documentation includes a diagnosis of hypotension. The following clinical indicators were also noted in the record: Risk Factors/Clinical Indicators/Treatments BP 97/43 Patient fell in [facility], hit her head, left side weakness, dizziness w confusion. Prior fall with bruise to right lower forearm. IV fluids ED: Clinical impression: Rhabdomyolysis, dizziness, hypotension, fall. Admit. Please clarify which of the following is the most likely etiology of the above symptoms and treatment rendered: * Hypotension - indicate type/etiology, such as idiopathic, neurogenic or orthostatic, chronic, drug induced (indicate drug), etc. * Hypotension, unknown type/etiology * Other (please specify) * Unable to determine Use of terms such as suspected, likely, concern for, or probable (associated with a specific diagnosis that is being evaluated, monitored, or treated as if it exists) are acceptable and can be coded in the inpatient setting, when documented at the time of discharge. Thank you, Namrata Castro [facility], CDIS Extension: [phone] Please use your independent medical judgment in providing your response. THIS QUERY IS PART OF THE PERMANENT MEDICAL RECORD Provider Response: Other Other Diagnosis: Hypotension, unknown type and corrected rapidly
--- NOTE | 2021-02-04 10:58 | P.PNIM_ITS ---
Subjective Subjective Date of Service: 02/04/21 Interval History: F/u on bacteremia, fall, feels better today no complaint, wants regular food Review of Systems no fever sob no back pain Physical Exam Vital Signs: Vital Signs: Last Vital Signs Temp 98.9 F 02/04/21 08:00 Pulse 87 02/04/21 08:00 Resp 14 02/04/21 08:00 BP 156/70 H 02/04/21 08:00 Pulse Ox 97 02/04/21 08:00 Body Mass Index 35.9 Const: Other: General: Alert, oriented to self, place Resp:? CTA bilateral CVS: S1,S2,RRR GI: +BS, NT, no distention Skin: No rash. MSK: no spinal tenderness, Neuro:? moving all extremities equally, Psych: appropriate affect Objective Data Active Medications Acetaminophen (Acetaminophen 325 Mg Tablet) 650 mg PO Q6H PRN PRN Reason: Pain Atorvastatin Calcium (Atorvastatin Calcium 10 Mg Tablet) 10 mg PO BEDTIME [facility] Last Admin: 02/03/21 20:09 Dose: 10 mg Documented by: IRIS Bisacodyl (Bisacodyl 10 Mg Supp.Rect) 10 mg [place] DAILY PRN PRN Reason: Constipation Carbidopa/Levodopa (Carbidopa/Levodopa 25/100 Tablet) 1 tab PO QID [facility] Last Admin: 02/04/21 07:31 Dose: 1 tab Documented by: YURIDIA Digoxin (Digoxin 0.125 Mg Tablet) 0.125 mg PO DAILY [facility] Last Admin: 02/04/21 07:30 Dose: 0.125 mg Documented by: YURIDIA Enoxaparin Sodium (Enoxaparin Sodium 40 Mg/0.4 Ml Syringe) 40 mg SUBCUT Q24H [facility] Last Admin: 02/04/21 08:58 Dose: 40 mg Documented by: YURIDIA Fluvoxamine Maleate (Fluvoxamine Maleate 50 Mg Tablet) 25 mg PO BEDTIME [facility] Last Admin: 02/03/21 20:09 Dose: 25 mg Documented by: IRIS Furosemide (Furosemide 40 Mg Tablet) 40 mg PO DAILY [facility]; Protocol Last Admin: 02/04/21 07:30 Dose: 40 mg Documented by: YURIDIA Sodium Chloride (Ns) 1,000 mls @ 125 mls/hr IVCONT .Q8H [facility] Last Admin: 02/04/21 06:34 Dose: 125 mls/hr Documented by: VIOLETTA Vancomycin HCl 1,000 mg/ (Sodium Chloride) 270 mls @ 270 mls/hr IV Q12H [facility] Last Infusion: 02/04/21 02:12 Dose: 0 mls/hr Documented by: VIOLETTA Lactase (Lactase Tablet) 3 tab PO TIDAC [facility] Last Admin: 02/04/21 07:29 Dose: Not Given Documented by: YURIDIA Non-Admin Reason: Med Not Available Loperamide HCl (Loperamide Hcl 2 Mg Capsule) 2 mg PO Q4H PRN PRN Reason: Diarrhea Metoprolol Tartrate (Metoprolol Tartrate 50 Mg Tablet) 50 mg PO BID [facility]; Protocol Last Admin: 02/04/21 07:31 Dose: 50 mg Documented by: YURIDIA Pharmacy Consult (Consult Rx Perform Med Rec) 1 each MISCELLANE ONCE PRN PRN Reason: Consult order Pharmacy Consult (Consult Rx Vancomycin Dosing) 1 each MISCELLANE DAILY PRN PRN Reason: Consult order Risperidone (Risperidone 2 Mg Tablet) 2 mg PO BID [facility] Last Admin: 02/04/21 07:31 Dose: 2 mg Documented by: YURIDIA Senna (Sennosides 8.6 Mg Tablet) 8.6 mg PO DAILY PRN PRN Reason: Constipation Sodium Chloride (0.9 % Sodium Chloride Flush 3 Ml Syringe) 3 ml IVFLUSH QSHIFT [facility] Last Admin: 02/04/21 07:29 Dose: Not Given Documented by: YURIDIA Non-Admin Reason: IV Running Valproic Acid (Valproic Acid 250 Mg Capsule) 500 mg PO DAILY [facility] Last Admin: 02/04/21 07:30 Dose: 500 mg Documented by: YURIDIA Valproic Acid (Valproic Acid 250 Mg Capsule) 1,000 mg PO BEDTIME [facility] Last Admin: 02/03/21 20:08 Dose: 1,000 mg Documented by: IRIS Labs CBC & Chem 7: 02/02/21 18:23 02/04/21 08:36 Labs: Laboratory Results - last 24 hr 02/03/21 02/03/21 02/03/21 13:03 13:03 13:03 Estim Creat Clear Calc 110.7 Estimated GFR > 60 Total Creatine Kinase 806 H D Troponin I High Sens 10.4 02/04/21 08:36 Estim Creat Clear Calc 122.1 Estimated GFR > 60 Total Creatine Kinase Troponin I High Sens Microbiology Microbiology Results: Microbiology 02/02/21 12:29 Blood Culture - Preliminary Blood - Venous Staphylococcus species 02/02/21 12:29 Blood Culture - Preliminary Blood - Venous Staphylococcus species Assessment and Plan (1) Bacteremia: Status: Acute (2) Rhabdomyolysis: Status: Acute (3) Dizziness: Status: Acute Assessment and Plan: 60 y/o female with history of schizoaffective disorder, Parkinson's disease, atrial fibrillation on Xarelto, hx UTI. She [facility]? brought in to be? because of a fall not reported as witnessed, the cicumstances of the fall is not well elucidated and patient is unable to give? a full account of what happed as she a poor historian. She does endorse hitting her head but not sure of being dizzy, sob,? or chest pain. She reports some headache. She had a head CT showing no hemorrhage, C-spine CT shows no? fracture o or dislocation yet shows??mount of soft tissue gas is identified within the paraspinal l soft tissue mostly to the right of the midline, indeterminate etiology. a dedicated Cervical Spine CT later showe no evidence of right paraspinal gas. She has elevated WBC but no fever and no? source of infection. Last? BP is 97/43. She was given a dose of Vancomycin and Zosyn? and now the next day blood cultures are reported positive 2/2 gram positive cocci with no obvious source of infection Bacteremia without a given source of infection..could be contamination -IV vancomycin, get Echo, get ID consult and repeat blood cultures, get? TTE Hypotension single episode on day of admission-resolved Parspinal soft tissue gas, was no longer present on repeat? imaging x 2, and no obivous sings of infection there, will discuss further with ID to see if additional imaging warranted Elevated troponin, repeat was low, recheck, has no check pain Elevated CPK, early rhabdomylosis--repeat coming down with IVF Quality Stroke Does the patient have a stroke diagnosis?: No VTE Prior VTE?: No VTE Risk Level:: Medical - moderate - high VTE Device Contraindication: N/A - Device Ordered VTE Drug Contraindication: N/A - Med Ordered
--- NOTE | 2021-02-04 11:33 | MHC.CM.PN ---
PER HOSPITALIST BACTEREMIA LIKELY CONTAMINATION, WILL CONSULT WITH ID TO DETERMINE PLAN, THERE IS A POSSIBILITY PT MAY D/C BACK TO TO [facility] TODAY, CM WILL CONT TO FOLLOW.
[2021-02-04 11:56] LABS: Vancomycin Trough 5.4 mcg/mL (10.0-20.0)
[2021-02-04] MEDS: vancomycin HCL 1,500 MG in 0.9 % Sodium Chloride 500 ML 333.33 MG IV (12:56)
[2021-02-04 16:00] VITALS: BP 160/73; PULSE 83; RESP 18; TEMP 36.3; O2SAT 98
--- NOTE | 2021-02-04 16:26 | W.PM.IDCN ---
History of Present Illness Data of Consult Service Date: 02/04/21 Requesting physician: Rock Juarez Primary Care Provider: DO LUZ MARIA Wagner Reason for consult: bacteremia She presents to hospital with weakness after fall at [facility] She has bruise on arm but moving arms well She has no fever or chills She has staph bacteremia,sensis pending. Review of Systems Review of Systems: Yes all other systems are reviewed and are negative [facility] Past Medical History Medical History Atrial fibrillation Parkinsons Schizoaffective disorder Social History Social History Household Members: Unknown / Unable to assess Housing: Other Housing Other:: [facility] Do you presently have visiting nurse or other home services: No Unable to assess alcohol history related to: Unknown Alcohol intake: never Patient Tobacco Use Status: Never used Tobacco Use of substances other than those prescribed or required for medical reasons: No Currently Displaying Signs/Symptoms of Drug Intoxication Withdrawal: No Have you been hit, kicked, punched, or otherwise hurt by someone within the past year? If so, by whom?: No Do you feel safe in your current relationship?: No Current Relationship Is there a partner from a previous relationship who is making you feel unsafe now?: No Advance Directives: No Advance Directives Information Provided: No Do you have thoughts of harming others: None Do you have a plan to hurt others: No Plan Recently lost weight without trying: No Patient : No service: No Current occupational status: disabled Meds Allergies Allergy/AdvReac Type Severity Reaction Status Date / Time lactose Allergy Mild Unknown Verified 09/04/20 17:42 Active Medications: Current Medications Acetaminophen (Acetaminophen 325 Mg Tablet) 650 mg PO Q6H PRN PRN Reason: Pain Atorvastatin Calcium (Atorvastatin Calcium 10 Mg Tablet) 10 mg PO BEDTIME [facility] Last Admin: 02/03/21 20:09 Dose: 10 mg Documented by: Bisacodyl (Bisacodyl 10 Mg Supp.Rect) 10 mg [place] DAILY PRN PRN Reason: Constipation Carbidopa/Levodopa (Carbidopa/Levodopa 25/100 Tablet) 1 tab PO QID [facility] Last Admin: 02/04/21 13:03 Dose: 1 tab Documented by: Digoxin (Digoxin 0.125 Mg Tablet) 0.125 mg PO DAILY [facility] Last Admin: 02/04/21 07:30 Dose: 0.125 mg Documented by: Enoxaparin Sodium (Enoxaparin Sodium 40 Mg/0.4 Ml Syringe) 40 mg SUBCUT Q24H [facility] Last Admin: 02/04/21 08:58 Dose: 40 mg Documented by: Fluvoxamine Maleate (Fluvoxamine Maleate 50 Mg Tablet) 25 mg PO BEDTIME [facility] Last Admin: 02/03/21 20:09 Dose: 25 mg Documented by: Furosemide (Furosemide 40 Mg Tablet) 40 mg PO DAILY [facility]; Protocol Last Admin: 02/04/21 07:30 Dose: 40 mg Documented by: Sodium Chloride (Ns) 1,000 mls @ 125 mls/hr IVCONT .Q8H [facility] Last Admin: 02/04/21 06:34 Dose: 125 mls/hr Documented by: Vancomycin HCl 1,500 mg/ (Sodium Chloride) 500 mls @ 333.333 mls/hr IV Q12H [facility] Last Infusion: 02/04/21 14:38 Dose: Infused Documented by: Lactase (Lactase Tablet) 3 tab PO TIDAC [facility] Last Admin: 02/04/21 12:54 Dose: Not Given Documented by: Loperamide HCl (Loperamide Hcl 2 Mg Capsule) 2 mg PO Q4H PRN PRN Reason: Diarrhea Metoprolol Tartrate (Metoprolol Tartrate 50 Mg Tablet) 50 mg PO BID [facility]; Protocol Last Admin: 02/04/21 07:31 Dose: 50 mg Documented by: Pharmacy Consult (Consult Rx Perform Med Rec) 1 each MISCELLANE ONCE PRN PRN Reason: Consult order Pharmacy Consult (Consult Rx Vancomycin Dosing) 1 each MISCELLANE DAILY PRN PRN Reason: Consult order Risperidone (Risperidone 2 Mg Tablet) 2 mg PO BID [facility] Last Admin: 02/04/21 07:31 Dose: 2 mg Documented by: Senna (Sennosides 8.6 Mg Tablet) 8.6 mg PO DAILY PRN PRN Reason: Constipation Sodium Chloride (0.9 % Sodium Chloride Flush 3 Ml Syringe) 3 ml IVFLUSH QSHIFT [facility] Last Admin: 02/04/21 07:29 Dose: Not Given Documented by: Valproic Acid (Valproic Acid 250 Mg Capsule) 500 mg PO DAILY [facility] Last Admin: 02/04/21 07:30 Dose: 500 mg Documented by: Valproic Acid (Valproic Acid 250 Mg Capsule) 1,000 mg PO BEDTIME [facility] Last Admin: 02/03/21 20:08 Dose: 1,000 mg Documented by: Home Medications Medication Instructions Recorded Confirmed Last Taken Type carbidopa 25 mg-levodopa 100 mg 1 tab PO QID 09/04/20 02/02/21 Unknown History tablet (Sinemet) digoxin 125 mcg (0.125 mg) tablet 125 mcg PO DAILY 09/04/20 02/02/21 Unknown History fluvoxamine 25 mg tablet 25 mg PO BEDTIME 09/04/20 02/02/21 Unknown History furosemide 40 mg tablet (Lasix) 40 mg PO DAILY 09/04/20 02/02/21 Unknown History lactase 3,000 unit tablet (Lactaid) 9,000 unit PO AC 09/04/20 02/02/21 Unknown History metoprolol tartrate 50 mg tablet 50 mg PO BID 09/04/20 02/02/21 Unknown History risperidone 2 mg tablet (Risperdal) 2 mg PO BID 09/04/20 02/02/21 Unknown History rivaroxaban 20 mg tablet (Xarelto) 20 mg PO QPM 09/04/20 02/02/21 Unknown History sennosides 8.6 mg tablet (senna) 8.6 mg PO DAILY PRN 09/04/20 02/02/21 Unknown History simvastatin 20 mg tablet 20 mg PO BEDTIME 09/04/20 02/02/21 Unknown History valproic acid 250 mg capsule 500 mg PO DAILY 09/04/20 02/02/21 Unknown History acetaminophen 325 mg tablet 650 mg PO Q6H PRN 09/05/20 02/02/21 Unknown History bisacodyl 10 mg rectal suppository 10 mg [place] DAILY PRN 09/05/20 02/02/21 Unknown History loperamide 2 mg tablet 2 mg PO Q4H PRN 09/05/20 02/02/21 Unknown History valproic acid 250 mg capsule 1,000 mg PO BEDTIME 09/05/20 02/02/21 Unknown History Physical Exam Vital Signs: Vital Signs: Last Vital Signs Temp 98.9 F 02/04/21 08:00 Pulse 87 02/04/21 08:00 Resp 14 02/04/21 08:00 BP 156/70 H 02/04/21 08:00 Pulse Ox 97 02/04/21 08:00 Body Mass Index 35.9 Const: General: cooperative HENMT: Head: Yes normal to inspection Mouth: Normal oral and palatal mucosa present Resp: Effort & Inspection: normal respiratory effort Cardio: Rate: regular rate Rhythm: regular rhythm GI: Palpation (GI): Soft to palpation and nontender Skin: General skin exam: no rashes or lesions noted Extrem: General: Yes normal to inspection Results Labs CBC & Chem 7: 02/02/21 18:23 02/04/21 08:36 Labs: BMP 02/04/21 08:36 Creatinine 0.58 Microbiology Microbiology Results: Microbiology 02/02/21 12:29 Blood - Venous Blood Culture - Preliminary Staphylococcus species 02/02/21 12:29 Blood - Venous Blood Culture - Preliminary Staphylococcus species Assessment and Plan (1) Bacteremia: Status: Acute Gram positive bacteremia CT neck shows no infection Possible endocarditis,less likely contaminant Would continue Vancomycin Echo if staph aureus Await cultures (2) Rhabdomyolysis: Qualifiers: Encounter type: initial encounter Rhabdomyolysis type: traumatic Qualified Code(s): T79.6XXA - Traumatic ischemia of muscle, initial encounter Status: Acute (3) Dizziness: Status: Acute (4) Hypotension: Qualifiers: Hypotension type: other hypotension type Qualified Code(s): I95.89 - Other hypotension Status: Acute
[2021-02-04] MEDS: 0.9 % Sodium Chloride Flush 3 ML SYRINGE IVFLUSH (17:48)
[2021-02-04 20:32] VITALS: BP 160/73; PULSE 83
[2021-02-04] MEDS: fluvoxaMINE Maleate 50 MG TABLET 25 MG PO (20:32)
[2021-02-04] MEDS: Atorvastatin Calcium 10 MG TABLET PO (20:32)
[2021-02-04] MEDS: Valproic Acid 250 MG CAPSULE 1000 MG PO (20:32)
[2021-02-05] VITALS: BP 147/84; PULSE 80; RESP 16; TEMP 36.4; O2SAT 99
[2021-02-05] MEDS: 0.9 % Sodium Chloride Flush 3 ML SYRINGE IVFLUSH ×2 (00:07→09:33)
[2021-02-05] MEDS: vancomycin HCL 1,500 MG in 0.9 % Sodium Chloride 500 ML 333.33 MG IV ×2 (00:27→13:16)
[2021-02-05 06:40] LABS: Creatinine Clr Calc Pharmacy 128.8; Estimated Glomerular Filt Rate > 60
[2021-02-05 08:00] VITALS: BP 163/90; PULSE 86; RESP 18; TEMP 36.2; O2SAT 96
[2021-02-05] MEDS: Metoprolol Tartrate 50 MG TABLET PO (09:31)
[2021-02-05] MEDS: risperiDONE 2 MG TABLET PO (09:31)
[2021-02-05] MEDS: Valproic Acid 250 MG CAPSULE 500 MG PO (09:31)
[2021-02-05] MEDS: Enoxaparin Sodium 40 MG/0.4 ML SYRINGE SUBCUT (09:32)
[2021-02-05] MEDS: Carbidopa/Levodopa 25/100 TABLET 1 TAB PO ×3 (09:32→16:34)
[2021-02-05] MEDS: Digoxin 0.125 MG TABLET PO (09:32)
[2021-02-05] MEDS: Furosemide 40 MG TABLET PO (09:32)
--- NOTE | 2021-02-05 10:11 | HO.PM.IMPN ---
Subjective Subjective Date of Service: 02/05/21 Interval History: Seen in f/u fall, bacteremia..feels better, no fever Review of Systems no fever no back pain Physical Exam Vital Signs: Vital Signs: Last Vital Signs Temp 97.1 F 02/05/21 08:00 Pulse 86 02/05/21 08:00 Resp 18 02/05/21 08:00 BP 163/90 H 02/05/21 08:00 Pulse Ox 96 02/05/21 08:00 Body Mass Index 35.9 General: AO X 3, no acute distress Resp: CTA bilateral CVS: S1,S2,RRR GI: +BS, NT, no distention Skin: No rash Neuro: motor grossly intact Psych: appropriate affect Objective Data Active Medications Acetaminophen (Acetaminophen 325 Mg Tablet) 650 mg PO Q6H PRN PRN Reason: Pain Atorvastatin Calcium (Atorvastatin Calcium 10 Mg Tablet) 10 mg PO BEDTIME [facility] Last Admin: 02/04/21 20:32 Dose: 10 mg Documented by: JESUS Bisacodyl (Bisacodyl 10 Mg Supp.Rect) 10 mg [place] DAILY PRN PRN Reason: Constipation Carbidopa/Levodopa (Carbidopa/Levodopa 25/100 Tablet) 1 tab PO QID [facility] Last Admin: 02/05/21 09:32 Dose: 1 tab Documented by: JAMIE Digoxin (Digoxin 0.125 Mg Tablet) 0.125 mg PO DAILY [facility] Last Admin: 02/05/21 09:32 Dose: 0.125 mg Documented by: JAMIE Enoxaparin Sodium (Enoxaparin Sodium 40 Mg/0.4 Ml Syringe) 40 mg SUBCUT Q24H [facility] Last Admin: 02/05/21 09:32 Dose: 40 mg Documented by: JAMIE Fluvoxamine Maleate (Fluvoxamine Maleate 50 Mg Tablet) 25 mg PO BEDTIME [facility] Last Admin: 02/04/21 20:32 Dose: 25 mg Documented by: JESUS Furosemide (Furosemide 40 Mg Tablet) 40 mg PO DAILY [facility]; Protocol Last Admin: 02/05/21 09:32 Dose: 40 mg Documented by: JAMIE Sodium Chloride (Ns) 1,000 mls @ 125 mls/hr IVCONT .Q8H [facility] Last Infusion: 02/05/21 07:28 Dose: 0 mls/hr Documented by: GOPAL Vancomycin HCl 1,500 mg/ (Sodium Chloride) 500 mls @ 333.333 mls/hr IV Q12H [facility] Last Infusion: 02/05/21 02:01 Dose: 0 mls/hr Documented by: JOHN Lactase (Lactase Tablet) 3 tab PO TIDAC [facility] Last Admin: 02/05/21 09:31 Dose: Not Given Documented by: GOPAL Non-Admin Reason: not available Loperamide HCl (Loperamide Hcl 2 Mg Capsule) 2 mg PO Q4H PRN PRN Reason: Diarrhea Metoprolol Tartrate (Metoprolol Tartrate 50 Mg Tablet) 50 mg PO BID [facility]; Protocol Last Admin: 02/05/21 09:31 Dose: 50 mg Documented by: JAMIE Pharmacy Consult (Consult Rx Perform Med Rec) 1 each MISCELLANE ONCE PRN PRN Reason: Consult order Pharmacy Consult (Consult Rx Vancomycin Dosing) 1 each MISCELLANE DAILY PRN PRN Reason: Consult order Risperidone (Risperidone 2 Mg Tablet) 2 mg PO BID [facility] Last Admin: 02/05/21 09:31 Dose: 2 mg Documented by: JAMIE Senna (Sennosides 8.6 Mg Tablet) 8.6 mg PO DAILY PRN PRN Reason: Constipation Sodium Chloride (0.9 % Sodium Chloride Flush 3 Ml Syringe) 3 ml IVFLUSH QSHIFT [facility] Last Admin: 02/05/21 09:33 Dose: 3 ml Documented by: JAMIE Valproic Acid (Valproic Acid 250 Mg Capsule) 500 mg PO DAILY [facility] Last Admin: 02/05/21 09:31 Dose: 500 mg Documented by: JAMIE Valproic Acid (Valproic Acid 250 Mg Capsule) 1,000 mg PO BEDTIME [facility] Last Admin: 02/04/21 20:32 Dose: 1,000 mg Documented by: JESUS Labs CBC & Chem 7: 02/02/21 18:23 02/05/21 05:34 Labs: Laboratory Results - last 24 hr 02/04/21 02/05/21 11:14 05:34 Estim Creat Clear Calc 128.8 Estimated GFR > 60 Vancomycin Trough 5.4 L Microbiology Microbiology Results: Microbiology 02/02/21 12:29 Blood Culture - Preliminary Blood - Venous Staphylococcus species 02/02/21 12:29 Blood Culture - Preliminary Blood - Venous Staphylococcus species Assessment and Plan (1) Bacteremia: Status: Acute (2) Rhabdomyolysis: Status: Acute (3) Dizziness: Status: Acute Assessment and Plan: 60 y/o female with history of schizoaffective disorder, Parkinson's disease, atrial fibrillation on Xarelto, hx UTI. [facility] brought in to be? because of a fall not reported as witnessed, the cicumstances of the fall is not well elucidated and patient is unable to give? a full account of what happed as she a poor historian. She does endorse hitting her head but not sure of being dizzy, sob,? or chest pain. She reports some headache. She had a head CT showing no hemorrhage, C-spine CT shows no? fracture o or dislocation yet shows??mount of soft tissue gas is identified within the paraspinal l soft tissue mostly to the right of the midline, indeterminate etiology. a dedicated Cervical Spine CT later showe no evidence of right paraspinal gas. She has elevated WBC but no fever and no? source of infection. Last? BP is 97/43. She was given a dose of Vancomycin and Zosyn? and now the next day blood cultures are reported positive 2/2 gram positive cocci with no obvious source of infection Bacteremia without a given source of infection..likely contamination, given that is coag negative staph -IV vancomycin, get Echo, get ID consult and repeat blood cultures, TTE no vegetations HypOtension single episode on day of admission-resolved Parspinal soft tissue gas, was no longer present on repeat? imaging x 2, and no obivous sings of infection there, will discuss further with ID to see if additional imaging warranted Elevated troponin, repeat was low, recheck, has no check pain Elevated CPK, early rhabdomylosis--repeat coming down with IVF Discharge if ID ok Quality Stroke Does the patient have a stroke diagnosis?: No VTE Prior VTE?: No VTE Risk Level:: Medical - moderate - high VTE Device Contraindication: N/A - Device Ordered VTE Drug Contraindication: N/A - Med Ordered
[2021-02-05] MEDS: 0.9 % Sodium Chloride 1,000 ML 125 ML IVCONT (13:15)
--- NOTE | 2021-02-05 14:25 | MHC.CM.PN ---
P-T IS CLEARED TO DC BACK TO [facility] TODAY. CM HAS SENT UPDATES VIA [facility] (f. [facility]) AND ATTEMPTED TO CONTACT THE NURSING WAFER POLISHER AT THE SNF TWICE. CM INFORMED BOTH TIMES THAT PT WAS UNABLE TO COME TO THE PHONE. CM JUST CALLED AGAIN AND WAS TOLD THE NURSING WAFER POLISHER WOULD BE AVAILABLE IN AN HOUR (APPROX [id number] HOURS.) BLS TRANSPORT IS ARRANGED FOR 1600 HOURS. CM WILL FAX PTS DC SUMMARY NOW AND ATTEMPT TO CONTACT NURSE BY PHONE AGAIN IN AN HOUR
--- NOTE | 2021-02-05 15:37 | MHC.CM.PN ---
called and spoke with dhaval dunn at [facility] to confirm dc for today and pickle pumper at 500 by amb confirmed dc with unit secreatry as well
[2021-02-05 15:50] VITALS: BP 141/59; PULSE 88; RESP 16; TEMP 36; O2SAT 98
[2021-02-05] MEDS: Lactase TABLET 3 TAB PO (16:34)
--- NOTE | 2021-02-05 16:54 | PM.DS ---
DS: Providers Provider Date of Service: 02/05/21 Date of admission: 02/02/21 17:04 Primary care physician: Cristofer Lake, DO DS: Diagnosis Discharge Diagnosis (1) Fall: Status: Acute DS: Summary Hospital Course Hospital Course: 60 y/o female with history of schizoaffective disorder, Parkinson's disease, atrial fibrillation on Xarelto, hx UTI. [facility] brought in to be? because of a fall not reported as witnessed, the cicumstances of the fall is not well elucidated and patient is unable to give? a full account of what happed as she a poor historian. She does endorse hitting her head but not sure of being dizzy, sob,? or chest pain. She reports some headache. She had a head CT showing no hemorrhage, C-spine CT shows no? fracture o or dislocation yet shows??mount of soft tissue gas is identified within the paraspinal as well as intraspinal soft tissue mostly to the right of the midline, indeterminate etiology. a dedicated Cervical Spine CT later showe no evidence of right paraspinal gas. She has elevated WBC but no fever and no? source of infection. Last? BP is 97/43. Troponin I is 19, she has no chest pain.? CPK is 1756. She is giving Zosyn but there is no mention of why. Hospital course: Patient was observed overnight, monitor on cardiac catheterization technician, no aryythmia, nor further episodes of dizzness, lowest blood pressure recorded was 97/43, she has a CPK level of 1756 and was hydrated with improvment to 80, her initial tropoin was 28, repeat 19.8 and no complaint of chest pain. As for soft tissue gas seen on C-spine CT this was no longer present on reapt imaging and thus believed to be related to venous puncture, there was no signs of infection. The following day her blood culture showed gram positive cocci, 2 out of 2 with no source of infection, she was given IV Vancomycin. Echo show no vegetation. Cultures is showing coag negative staph with 2 different stains and likely contamination and therefore does not need further Abx. Time Spent with Patient Time attestation: Total time spent providing and/or coordinating discharge services: Discharge coordination time: Greater than 30 minutes Quality: Stroke Does the patient have a stroke diagnosis?: No Physical Exam Vital Signs: Vital Signs: Last Vital Signs Temp 98.4 F 02/03/21 08:00 Pulse 93 02/03/21 10:04 Resp 18 02/03/21 08:00 BP 135/72 02/03/21 10:04 Pulse Ox 95 02/03/21 09:15 Body Mass Index 35.9 DS: Data Data Completed and Pending Labs on day of discharge: Laboratory Results - last 24 hr 02/02/21 02/02/21 02/02/21 10:58 11:16 11:16 WBC 15.6 H RBC 3.38 L Hgb 10.8 L Hct 32.6 L MCV 96.4 MCH 32.0 MCHC 33.1 RDW 13.9 Plt Count 148 L MPV 9.6 Immature Gran % (Auto) 0.9 H Neut % (Auto) 82.4 H Lymph % (Auto) 6.6 L [place] % (Auto) 9.9 Eos % (Auto) 0.0 Baso % (Auto) 0.2 Lymph # (Auto) 1.0 L [place] # (Auto) 1.6 H Eos # (Auto) 0.0 Baso # (Auto) 0.0 Abs Immat Gran (auto) 0.14 H Absolute Neuts (auto) 12.9 H Absolute Nucleated RBC 0.000 Nucleated RBC % (auto) 0.0 Smear Tech's Comments VERIFIED ESR PT 14.4 H INR 1.3 H APTT 27.7 Sodium Potassium Chloride Carbon Dioxide Anion Gap BUN Creatinine Estim Creat Clear Calc Estimated GFR POC Glucose 127 H Random Glucose Lactic Acid Lactic Acid Fup @ 2Hr Calcium Magnesium Total Bilirubin Direct Bilirubin AST ALT Alkaline Phosphatase Total Creatine Kinase Troponin I High Sens C-Reactive Protein B-Natriuretic Peptide Total Protein Albumin Urine Color Urine Appearance Urine pH Ur Specific [place] Urine Protein Urine Glucose (UA) Urine Ketones Urine Blood Urine Nitrite Ur Leukocyte Esterase COVID-19 ([facility]) COVID-19 Clin Com 02/02/21 02/02/21 02/02/21 11:16 11:16 11:16 WBC RBC Hgb Hct MCV MCH MCHC RDW Plt Count MPV Immature Gran % (Auto) Neut % (Auto) Lymph % (Auto) [place] % (Auto) Eos % (Auto) Baso % (Auto) Lymph # (Auto) [place] # (Auto) Eos # (Auto) Baso # (Auto) Abs Immat Gran (auto) Absolute Neuts (auto) Absolute Nucleated RBC Nucleated RBC % (auto) Smear Tech's Comments ESR PT INR APTT Sodium 132 L Potassium 3.8 Chloride 96 Carbon Dioxide 25 Anion Gap 15 BUN 15 Creatinine 0.83 Estim Creat Clear Calc 85.3 Estimated GFR > 60 POC Glucose Random Glucose 121 H Lactic Acid 2.3 H* Lactic Acid Fup @ 2Hr Calcium 8.2 L D Magnesium 1.9 Total Bilirubin 0.7 Direct Bilirubin 0.3 AST 22 D ALT < 6 Alkaline Phosphatase 49 D Total Creatine Kinase 1756 H Troponin I High Sens 28.1 H* D C-Reactive Protein 21.11 H B-Natriuretic Peptide 111 H Total Protein 5.4 L Albumin 3.0 L D Urine Color Urine Appearance Urine pH Ur Specific [place] Urine Protein Urine Glucose (UA) Urine Ketones Urine Blood Urine Nitrite Ur Leukocyte Esterase COVID-19 ([facility]) COVIDPunch! 02/02/21 02/02/21 02/02/21 11:16 11:16 12:29 WBC RBC Hgb Hct MCV MCH MCHC RDW Plt Count MPV Immature Gran % (Auto) Neut % (Auto) Lymph % (Auto) [place] % (Auto) Eos % (Auto) Baso % (Auto) Lymph # (Auto) [place] # (Auto) Eos # (Auto) Baso # (Auto) Abs Immat Gran (auto) Absolute Neuts (auto) Absolute Nucleated RBC Nucleated RBC % (auto) Smear Tech's Comments ESR 55 H PT INR APTT Sodium Potassium Chloride Carbon Dioxide Anion Gap BUN Creatinine Estim Creat Clear Calc Estimated GFR POC Glucose Random Glucose Lactic Acid Lactic Acid Fup @ 2Hr Calcium Magnesium Total Bilirubin Direct Bilirubin AST ALT Alkaline Phosphatase Total Creatine Kinase Troponin I High Sens C-Reactive Protein B-Natriuretic Peptide Total Protein Albumin Urine Color YELLOW Urine Appearance HAZY Urine pH 6.0 Ur Specific [place] <= 1.005 Urine Protein TRACE Urine Glucose (UA) NEG Urine Ketones NEG Urine Blood NEG Urine Nitrite NEG Ur Leukocyte Esterase NEG COVID-19 ([facility]) Negative COVIDPunch! See Note 02/02/21 02/02/21 02/02/21 13:43 14:19 18:23 WBC 11.4 H RBC 3.67 L Hgb 11.7 L Hct 35.1 L MCV 95.6 MCH 31.9 MCHC 33.3 RDW 13.8 Plt Count 135 L MPV 9.6 Immature Gran % (Auto) Neut % (Auto) Lymph % (Auto) [place] % (Auto) Eos % (Auto) Baso % (Auto) Lymph # (Auto) [place] # (Auto) Eos # (Auto) Baso # (Auto) Abs Immat Gran (auto) Absolute Neuts (auto) Absolute Nucleated RBC 0.000 Nucleated RBC % (auto) 0.0 Smear Tech's Comments ESR PT INR APTT Sodium Potassium Chloride Carbon Dioxide Anion Gap BUN Creatinine Estim Creat Clear Calc Estimated GFR POC Glucose Random Glucose Lactic Acid Lactic Acid Fup @ 2Hr 1.7 Calcium Magnesium Total Bilirubin Direct Bilirubin AST ALT Alkaline Phosphatase Total Creatine Kinase Troponin I High Sens 19.9 H* C-Reactive Protein B-Natriuretic Peptide Total Protein Albumin Urine Color Urine Appearance Urine pH Ur Specific [place] Urine Protein Urine Glucose (UA) Urine Ketones Urine Blood Urine Nitrite Ur Leukocyte Esterase COVID-19 ([facility]) COVID-My Lu[employer] My Life My Heartbeats 02/02/21 02/02/21 18:23 18:23 WBC RBC Hgb Hct MCV MCH MCHC RDW Plt Count MPV Immature Gran % (Auto) Neut % (Auto) Lymph % (Auto) [place] % (Auto) Eos % (Auto) Baso % (Auto) Lymph # (Auto) [place] # (Auto) Eos # (Auto) Baso # (Auto) Abs Immat Gran (auto) Absolute Neuts (auto) Absolute Nucleated RBC Nucleated RBC % (auto) Smear Tech's Comments ESR 55 H PT INR APTT Sodium Potassium Chloride Carbon Dioxide Anion Gap BUN Creatinine Estim Creat Clear Calc Estimated GFR POC Glucose Random Glucose Lactic Acid 1.4 Lactic Acid Fup @ 2Hr Calcium Magnesium Total Bilirubin Direct Bilirubin AST ALT Alkaline Phosphatase Total Creatine Kinase Troponin I High Sens C-Reactive Protein B-Natriuretic Peptide Total Protein Albumin Urine Color Urine Appearance Urine pH Ur Specific [place] Urine Protein Urine Glucose (UA) Urine Ketones Urine Blood Urine Nitrite Ur Leukocyte Esterase COVID-19 ([facility]) COVID-19 [facility] Discharge Plan Discharge Anticipated Discharge Date/Time: 02/05/21 13:21 Patient Disposition: Xfer SNF Discharge Diagnosis: Fall Referrals: [facility] [Outside] - 1 Week Cristofer Lake DO [Primary Care Provider] - 1 Week Discharge Medications: Continued furosemide [Lasix] 40 mg Tablet 40 mg PO DAILY RF: 0 sennosides [senna] 8.6 mg Tablet 8.6 mg PO DAILY PRN (Reason: Constipation) RF: 0 risperidone [Risperdal] 2 mg Tablet 2 mg PO BID RF: 0 fluvoxamine 25 mg Tablet 25 mg PO BEDTIME RF: 0 simvastatin 20 mg Tablet 20 mg PO BEDTIME RF: 0 metoprolol tartrate 50 mg Tablet 50 mg PO BID RF: 0 lactase [Lactaid] 3,000 unit Tablet 9,000 unit PO AC RF: 0 digoxin 125 mcg (0.125 mg) Tablet 125 mcg PO DAILY RF: 0 carbidopa-levodopa [Sinemet] 25-100 mg Tablet 1 tab PO QID RF: 0 valproic acid 250 mg Capsule 500 mg PO DAILY RF: 0 Xarelto 20 mg Tablet 20 mg PO QPM RF: 0 acetaminophen 325 mg Tablet 650 mg PO Q6H PRN (Reason: Pain) RF: 0 loperamide 2 mg Tablet 2 mg PO Q4H PRN (Reason: Diarrhea) RF: 0 valproic acid 250 mg Capsule 1,000 mg PO BEDTIME RF: 0 bisacodyl 10 mg Suppository 10 mg [place] DAILY PRN (Reason: Constipation) RF: 0 Discharge Orders: Discharge Order (Routine); Ordered 02/05/21 Ordered By: Rock Juarez Diet: advance to usual diet Activity on Discharge: As tolerated Stand Alone Forms: Patient Portal Discharge page Care Plan Goals: fall prevention Health Concerns: falls Plan of Treatment: [facility] Assessment: as above
== END 2021-02-05 18:24 | disposition skilled nursing facility (03) | DRG 351 ==
LOC: HO.ED 16:02 → HO.S3 02-03 10:50 → HO.EDOVER 02-03 13:56
PROVIDERS: Physician Assistant; Admitting Provider Internal Medicine; Emergency Provider Emergency Medicine Emergency Medical Services; PCP Hospitalist; Visit Provider Internal Medicine
DX: T79.6XXA Traumatic ischemia of muscle, initial encounter (principal); G20 Parkinson's disease; I95.9 Hypotension, unspecified; E87.2 Acidosis; F25.9 Schizoaffective disorder, unspecified; I48.91 Unspecified atrial fibrillation; W19.XXXA Unspecified fall, initial encounter; Z20.822 Contact with and (suspected) exposure to COVID-19; Z79.01 Long term (current) use of anticoagulants; Z79.899 Other long term (current) drug therapy
CPT/HCPCS: 36415; 70450; 70490; 70491; 71045; 72125; 73090; 73521; 80048; 80076; 80202; 81003; 82550; 82565; 82947; 83605; 83735; 83880; 84484; 85025; 85027; 85610; 85652; 85730; 86140; 87040; 87077; 87186; 87205; 87635; 93005; 93306; 96361; 96365; 96367; 97162; 99285; 99291; J1650; J2543; J3370

== ENCOUNTER 2021-08-16 13:27 | Outpatient (REF) | payer MEDICAID, SELFPAY ==
--- NOTE | ~2021-08-16 | MM_ITS ---
EXAMINATION: MM SCREENING DIGITAL BREAST TOMOSYNTHESIS, BILATERAL CLINICAL INFORMATION: Screening. Asymptomatic. The lifetime risk of breast cancer based on the Tyrer-Cuzick Model is 10%. COMPARISON: Mammography: 08/06/2020 (baseline) TECHNIQUE: Digital breast tomosynthesis is performed in both the craniocaudal and mediolateral oblique views along with computer-aided detection (CAD). Synthesized 2D images are generated from the tomosynthesis. FINDINGS: There are scattered areas of fibroglandular density (ACR BI-RADS breast composition Category b). Breast tissue composition borders on predominantly fatty. Background stromal and fibroglandular densities are stable. There is no interval mass or architectural abnormality. No abnormal calcifications. The axilla and skin contours are unremarkable. MM/MM tomosynthesis screening BI IMPRESSION: No mammographic evidence of malignancy. ASSESSMENT: BI-RADS 1: Negative RECOMMENDATION: Routine annual mammography screening. This patient's information was entered into a reminder system with a target due date for their next mammogram.
== END 2021-08-16 13:28 | disposition home or self-care (01) ==
LOC: HO.MAMMO 13:27
PROVIDERS: PCP Hospitalist; Visit Provider Hospitalist
DX: Z12.31 Encounter for screening mammogram for malignant neoplasm of breast (principal)
CPT/HCPCS: 77063; 77067

== ENCOUNTER 2022-09-25 12:09 | Outpatient (REF) | payer MEDICAID, SELFPAY ==
--- NOTE | ~2022-09-25 | MM_ITS ---
EXAMINATION: MM SCREENING DIGITAL BREAST TOMOSYNTHESIS, BILATERAL CLINICAL INFORMATION: Screening. Asymptomatic. The lifetime risk of breast cancer based on the Tyrer-Cuzick Model is 9%. COMPARISON: Mammography: 08/16/2021, 08/06/2020 (baseline) TECHNIQUE: Digital breast tomosynthesis is performed in both the craniocaudal and mediolateral oblique views along with computer-aided detection (CAD). Synthesized 2D images are generated from the tomosynthesis. FINDINGS: There are scattered areas of fibroglandular density (ACR BI-RADS breast composition Category b). There are no significant masses, abnormal calcifications, or other abnormalities. Parenchymal pattern is similar to prior studies. There is no developing density or architectural abnormality. Small intramammary node again seen mid outer right breast. The axilla and skin contours are unremarkable. MM/MM tomosynthesis screening BI IMPRESSION: No mammographic evidence of malignancy. ASSESSMENT: BI-RADS 2: Benign RECOMMENDATION: Routine annual mammography screening. This patient's information was entered into a reminder system with a target due date for their next mammogram.
== END 2022-09-25 12:10 | disposition home or self-care (01) ==
LOC: HO.MAMMO 12:09
PROVIDERS: Visit Provider Hospitalist
DX: Z12.31 Encounter for screening mammogram for malignant neoplasm of breast (principal)
CPT/HCPCS: 77063; 77067

== ENCOUNTER 2022-11-30 13:35 | Outpatient (AMB) | payer MEDICAID, SELFPAY ==
--- NOTE | 2022-11-30 13:40 | MHC.OFFVIS ---
Intake Vital Signs 11/30/22 13:46 Height 5 ft 4 in Weight 204 lb BMI 35.0 BP 124/80 Intake Visit Reasons: New patient Annual Intake Note: The patient agreed to use of a medical staff credentialing coordinator during this encounter. Scribed for KEEGAN Browne by [facility] medical staff credentialing coordinator, on 11/30/2022 at 1:56 pm EST. Club Manager Required: No Information Interpreted: non-clinical & clinical Bearingizer: Bearingizer Present (Cherry ARAUJO) Accompanied by: Self / Same As Patient Allergies lactose Allergy (Mild, Verified 11/30/22 13:48) Unknown Post menopausal: Yes HPI HPI Comments History of Present Illness Details She is a postmenopausal woman presenting for annual exam with her [facility] staff. Doing well with no system architect concerns. Patient admits she tries to eat a healthy diet, dislikes the [facility] food. Denies vaginal itching/irritation or vaginal surgeries/trauma. Limited system architect notes, reports last exam 08/2020 with a vaginal septum, likely to close completely. HPV negative, no pap from that visit. Denies family hx of colon and ovarian cancer. Last pap smear 08/31/20. Last mammogram 09/16/22. UTD on colonoscopy. [facility] Medical History (Updated 11/30/22 @ 14:44 by Nazanin Carrillo CNM) Atrial fibrillation Fall Parkinsons Schizoaffective disorder Vaginal septum Family History Paternal Grandmother Breast cancer Social History Household Members: Unknown / Unable to assess Housing: Other Housing Other:: [facility] Do you presently have visiting nurse or other home services: No Unable to assess alcohol history related to: Unknown Alcohol intake: never Patient Tobacco Use Status: Never used Tobacco service: No Current occupational status: disabled Female Reproductive History Menstrual Date of last pap smear: 08/31/20 Date of Mammogram: 09/16/22 Physical Exam Vital Signs: Last Vital Signs BP 124/80 11/30/22 13:46 BMI result Body Mass Index 35.0 Const General: cooperative, healthy appearing, no acute distress, well developed and alert Orientation/consciousness: patient oriented x3 HEENT Head: Yes normal to inspection Eyes General: appearance normal, both eyes and all related structures Neck Neck: Yes normal visual inspection Thyroid: Thyroid normal Chest Chest palpation & inspection: normal inspection of the chest Breast/axilla inspection: normal inspection of the breasts (no puckering, dimpling, peau de orange, retraction, discharge, masses) Breast/axilla palpation: normal palpation of the breasts Resp Effort & Inspection: normal respiratory effort GI Inspection: Yes normal to inspection Palpation (GI): Soft to palpation (to palpation) Rectal Exam - Female: deferred Other: Vulvar/gluteal erythema in diaper area. Sebaceous glands on labia majora. Vaginal opening sealed closed, appears scarred External Female Exam: normal external appearance and normal appearance of the urethra Skin General skin exam: no rashes or lesions noted Neuro General: patient oriented x3 Cognition (Neuro): normal cognition Extrem General: Yes normal to inspection Psych Attitude: cooperative Thought process: Normal thought process present Assessment & Plan Assessment & Plan (1) Encounter for well woman exam: Code(s): Z01.419 - Encounter for gynecological examination (general) (routine) without abnormal findings Plan: Discussed: Current recommendations for pap smears per ASCCP guidelines-not able to perform a pap/pelvic due to vaginal closure. Breast awareness and periodic self breast exams. Encouraged yearly mammograms. Maintaining a healthy lifestyle including a well balanced diet, remain as active as possible. Sign release of records from prior [employer] regarding last [employer] exam, Pelvic US and CT scans. All of her questions and concerns were addressed to the best of my ability. RTO in 1 year for AG-breast exam, unless breast examination is completed by her PCP. She prefers to return here for care. Advised to RTO sooner if pelvic pain, pressure, or bloating. (2) Vaginal septum: Comment: septum was closed, no vaginal opening Code(s): Q52.10 - Doubling of vagina, unspecified Coding Level of Care Code New Pt Prev Care 40-64y(22468) Diagnoses Encounter for well woman exam Z01.419 Vaginal septum Q52.10
[2022-11-30 13:46] VITALS: BP 124/80; BMI 35.0
== END 2022-11-30 14:26 | disposition home or self-care (01) ==
LOC: HO.HWS 13:35
PROVIDERS: PCP Hospitalist; Visit Provider Advanced Practice Midwife
DX: Z01.419 Encounter for gynecological examination (general) (routine) without abnormal findings (principal); Q52.10 Doubling of vagina, unspecified
CPT/HCPCS: 99386

== ENCOUNTER → 2022-11-30 13:35 | Outpatient (BNVA) | payer MEDICAID, SELFPAY | PROVIDERS: PCP Hospitalist; Visit Provider Advanced Practice Midwife ==

== ENCOUNTER 2022-12-04 07:23 | Day surgery (SDC) | payer MEDICAID, SELFPAY ==
--- NOTE | 2022-12-01 10:09 | HO.ANESPROP2 ---
Documented by User: Merna Fisher NP 12/01/22 14:00 HPI - Anesthesia Eval Consult details Narrative: 62yo F for Colonoscopy Xarelto for afib SNF resident @ [facility]. Signs for self per Dahlia Sargent, Retail Merchandising Manager Last provider eval 10/2022. Stable without changes to current treatment plan. [facility] Active Problems Active Problems: All Active Problems (Updated 12/01/22 @ 06:37 by Laya Hunt RN) UTI (urinary tract infection) (Acute) Altered mental status (Acute) CAP (community acquired pneumonia) (Acute) Vaginal septum (Acute) Past Medical History Medical History (Updated 12/01/22 @ 06:37 by Laya Hunt RN) Atrial fibrillation Bilateral cataracts Borderline personality disorder Cardiomegaly Fall HTN (hypertension) Hyperlipidemia Hypokalemia Hypothyroid Intellectual disability Muscle weakness OCD (obsessive compulsive disorder) Parkinsons Schizoaffective disorder Vaginal septum Family History Family History Paternal Grandmother Breast cancer Surgical History Surgical History (Updated 12/01/22 @ 06:37 by Laya Hunt RN) History of foot surgery Hx of tonsillectomy Social History Social History Household Members: Unknown / Unable to assess Housing: Other Housing Other:: [facility] Do you presently have visiting nurse or other home services: No Unable to assess alcohol history related to: Unknown Alcohol intake: never Patient Tobacco Use Status: Never used Tobacco Use of substances other than those prescribed or required for medical reasons: No Are you DNR?: No Advance Directives: No Advance Directives Information Provided: Yes service: No Current occupational status: disabled Meds Allergies Allergy/AdvReac Type Severity Reaction Status Date / Time lactose Allergy Mild Unknown Verified 11/30/22 13:48 acetaminophen [From Tylenol] Allergy Unknown Verified 12/01/22 06:35 Home Medications Medication Instructions Recorded Confirmed Last Taken Type carbidopa 25 mg-levodopa 100 mg 1 tab PO QID 09/04/20 12/04/22 Unknown History tablet (Sinemet) digoxin 125 mcg (0.125 mg) tablet 125 mcg PO DAILY 09/04/20 12/04/22 Unknown History fluvoxamine 25 mg tablet 25 mg PO BEDTIME 09/04/20 12/04/22 Unknown History furosemide 40 mg tablet (Lasix) 40 mg PO DAILY 09/04/20 12/04/22 Unknown History lactase 3,000 unit tablet (Lactaid) 9,000 unit PO AC 09/04/20 12/04/22 Unknown History metoprolol tartrate 50 mg tablet 50 mg PO BID 09/04/20 12/04/22 Unknown History risperidone 2 mg tablet (Risperdal) 2 mg PO BID 09/04/20 12/04/22 Unknown History rivaroxaban 20 mg tablet (Xarelto) 20 mg PO QPM 09/04/20 02/02/21 11/30/22 History sennosides 8.6 mg tablet (senna) 8.6 mg PO DAILY PRN Constipation 09/04/20 12/04/22 Unknown History simvastatin 20 mg tablet 20 mg PO BEDTIME 09/04/20 12/04/22 Unknown History valproic acid 250 mg capsule 500 mg PO DAILY 09/04/20 12/04/22 Unknown History acetaminophen 325 mg tablet 650 mg PO Q6H PRN Pain 09/05/20 12/04/22 Unknown History bisacodyl 10 mg rectal suppository 10 mg CO DAILY PRN Constipation 09/05/20 12/04/22 Unknown History loperamide 2 mg tablet 2 mg PO Q4H PRN Diarrhea 09/05/20 12/04/22 Unknown History valproic acid 250 mg capsule 1,000 mg PO BEDTIME 09/05/20 12/04/22 Unknown History Exam Exam Date and Time: December 01, 2022 1009 Pertinent Lab Results Pertinent Lab Results: 11/28/22 CMP WNL 06/2022 CBC WNL Narrative Narrative: ECHO 2020 Conclusions: - Normal left ventricular size and systolic function.? - Normal right ventricular cavity size and systolic function.? ? - The left atrium is severely dilated. ? ?? Assessment and Plan Assessment Anesthesia Assessment: Chart Reviewed Documented by User: Chris Buck MD 12/04/22 15:41 [facility] Past Medical History Medical History (Updated 12/01/22 @ 06:37 by Laya Hunt, RN) Atrial fibrillation Bilateral cataracts Borderline personality disorder Cardiomegaly Fall HTN (hypertension) Hyperlipidemia Hypokalemia Hypothyroid Intellectual disability Muscle weakness OCD (obsessive compulsive disorder) Parkinsons Schizoaffective disorder Vaginal septum Family History Family History Paternal Grandmother Breast cancer Family history of problems with anesthesia: No Surgical History Surgical History (Updated 12/01/22 @ 06:37 by Laya Hunt RN) History of foot surgery Hx of tonsillectomy History of Problems with Anesthesia: No Social History Social History Household Members: Unknown / Unable to assess Housing: Other Housing Other:: [facility] Do you presently have visiting nurse or other home services: No Unable to assess alcohol history related to: Unknown Alcohol intake: never Patient Tobacco Use Status: Never used Tobacco Use of substances other than those prescribed or required for medical reasons: No Are you DNR?: No Advance Directives: No Advance Directives Information Provided: Yes service: No Current occupational status: disabled Meds Allergies Allergy/AdvReac Type Severity Reaction Status Date / Time lactose Allergy Mild Unknown Verified 11/30/22 13:48 acetaminophen [From Tylenol] Allergy Unknown Verified 12/01/22 06:35 Home Medications Medication Instructions Recorded Confirmed Last Taken Type carbidopa 25 mg-levodopa 100 mg 1 tab PO QID 09/04/20 12/04/22 Unknown History tablet (Sinemet) digoxin 125 mcg (0.125 mg) tablet 125 mcg PO DAILY 09/04/20 12/04/22 Unknown History fluvoxamine 25 mg tablet 25 mg PO BEDTIME 09/04/20 12/04/22 Unknown History furosemide 40 mg tablet (Lasix) 40 mg PO DAILY 09/04/20 12/04/22 Unknown History lactase 3,000 unit tablet (Lactaid) 9,000 unit PO AC 09/04/20 12/04/22 Unknown History metoprolol tartrate 50 mg tablet 50 mg PO BID 09/04/20 12/04/22 Unknown History risperidone 2 mg tablet (Risperdal) 2 mg PO BID 09/04/20 12/04/22 Unknown History rivaroxaban 20 mg tablet (Xarelto) 20 mg PO QPM 09/04/20 02/02/21 11/30/22 History sennosides 8.6 mg tablet (senna) 8.6 mg PO DAILY PRN Constipation 09/04/20 12/04/22 Unknown History simvastatin 20 mg tablet 20 mg PO BEDTIME 09/04/20 12/04/22 Unknown History valproic acid 250 mg capsule 500 mg PO DAILY 09/04/20 12/04/22 Unknown History acetaminophen 325 mg tablet 650 mg PO Q6H PRN Pain 09/05/20 12/04/22 Unknown History bisacodyl 10 mg rectal suppository 10 mg CO DAILY PRN Constipation 09/05/20 12/04/22 Unknown History loperamide 2 mg tablet 2 mg PO Q4H PRN Diarrhea 09/05/20 12/04/22 Unknown History valproic acid 250 mg capsule 1,000 mg PO BEDTIME 09/05/20 12/04/22 Unknown History Exam Airway Mallampati Class: IV Loose/Missing/Broken Teeth: Yes Assessment and Plan Assessment Anesthesia Assessment: Anesthesia Plan Discussed Final Anesthetic Review Family History of Problems with Anesthesia: No History of Problems with Anesthesia: No NPO: Yes ASA Class: III Final Preanesthetic Review: Meds/Allgs Chart Reviewed, Consent Obtained/Reviewed and Anes Risks/Benef Reviewed Patient Risk: Intermediate Procedure Risk: Intermediate Anesthetic Plan Anesthetic Plan: MAC: Disposition: Standard PACU
[2022-12-04] MEDS: Sodium Phosphate,Mono-Dibasic 133 ML ENEMA PR (08:05)
[2022-12-04 08:15] VITALS: BP 107/51; PULSE 88; RESP 18; TEMP 36.1; O2SAT 96; BMI 31.1
[2022-12-04] MEDS: Lactated Ringers 1,000 ML 50 ML IVCONT (08:44)
[2022-12-04 09:45] VITALS: BP 98/56; PULSE 84; RESP 17; TEMP 36.6; O2SAT 98
--- NOTE | 2022-12-04 09:52 | PM.OP ---
Brief Operative Note Date of Service: 12/04/22 Pre-op diagnosis: Screening Post-op diagnosis: other (Diverticulosis) Procedure: Colonoscopy to the cecum and TI Surgeon: Vinicius Stubbs Anesthesia: MAC Was an Compressor Operator used for this Procedure?: No Estimated blood loss (mL): 0 Pathology: none sent Condition: stable Disposition: PACU
[2022-12-04 10:00] VITALS: BP 131/83; PULSE 62; RESP 16; O2SAT 98
[2022-12-04 10:15] VITALS: BP 132/63; PULSE 61; RESP 20; TEMP 36.7; O2SAT 98
--- NOTE | 2022-12-04 10:43 | OP_ITS ---
DATE OF SERVICE: 12/04/2022 SURGEON: Vinicius Stubbs MD INDICATIONS: The patient presents for evaluation of colorectal cancer screening. Full consent obtained from her for this, including risks of bleeding and perforation. PREOPERATIVE DIAGNOSIS: Colorectal cancer screening. POSTOPERATIVE DIAGNOSIS: PROCEDURE PERFORMED: Colonoscopy to the cecum and terminal ileum. ESTIMATED BLOOD LOSS: COMPLICATIONS: ANESTHESIA: Monitored anesthesia care. ASSISTANTS: SPECIMENS: POSTOPERATIVE DIAGNOSES: Colorectal cancer screening, diverticulosis, and internal hemorrhoids. DESCRIPTION OF PROCEDURE: The patient was placed in the left lateral decubitus position. The digital rectal exam revealed no abnormalities. The Olympus video pediatric colonoscope was entered into the rectum and advanced easily into the cecum. Once in the cecum, I did identify normal-appearing cecal pouch with appendiceal orifice and a normal-appearing ileocecal valve. The terminal ileum was cannulated and appeared normal. The scope was withdrawn back into the colon. The entire cecum and ileocecal valve appeared normal. The scope was slowly withdrawn assessing all mucosal surfaces carefully. Preparation was excellent. I did not visualize any sign of polyps, colitis, or angiodysplasia. There was a mild amount of diverticulosis in the ascending and transverse colon, and a moderate amount of diverticulosis in the sigmoid colon. In the rectum, scope was retroflexed visualizing internal hemorrhoids, but no other pathology. The rectal mucosa appeared normal. The scope was straightened out and withdrawn from the patient. She tolerated the procedure well and was returned to recovery area in stable condition. IMPRESSION: 1. Diverticulosis. 2. Internal hemorrhoids. PLAN: I would recommend a repeat colonoscopy in 10 years for further screening. She was advised to resume her Xarelto today and those orders were sent with her back to her long-term care facility. She will otherwise see me on a p.r.n. basis. MD PERLITA Narayanan/REGGIE / [phone]
== END 2022-12-04 10:21 | disposition home or self-care (01) ==
PROVIDERS: PCP Hospitalist; Visit Provider Internal Medicine
PROC: 0DJD8ZZ Inspection of Lower Intestinal Tract, Via Natural or Artificial Opening Endoscopic (ICD-10-PCS; CPT 45378; principal; 2022-12-04 08:30)
DX: Z12.11 Encounter for screening for malignant neoplasm of colon (principal); K57.30 Diverticulosis of large intestine without perforation or abscess without bleeding; K64.8 Other hemorrhoids; G20 Parkinson's disease; F20.9 Schizophrenia, unspecified; F60.3 Borderline personality disorder; F42.9 Obsessive-compulsive disorder, unspecified; I10 Essential (primary) hypertension; I48.91 Unspecified atrial fibrillation; E03.9 Hypothyroidism, unspecified; Z79.01 Long term (current) use of anticoagulants; Z79.899 Other long term (current) drug therapy; Z88.8 Allergy status to other drugs, medicaments and biological substances

== ENCOUNTER 2023-09-04 19:35 | Inpatient (IN) | payer MEDICAID, SELFPAY ==
--- NOTE | ~2023-09-04 | CT_ITS ---
EXAMINATION: CT HEAD WITHOUT CONTRAST CLINICAL INFORMATION: Change in mental status. On blood thinner. COMPARISON: CT head dated 02/02/2021. TECHNIQUE: Contiguous axial imaging was performed from the skull base to vertex without intravenous administration of contrast. This CT examination was performed using dose optimization techniques as appropriate, variously including the following: *Automated exposure control *Adjustment of mA and/or kV according to patient size (this includes techniques or standardized protocols for targeted exams where dose is matched to indication/reason for exam; i.e. extremities or head) *Use of iterative reconstruction technique DLP: 759 mGy-cm FINDINGS: There is no acute intracranial hemorrhage. There is no evidence of acute/subacute cerebral or cerebellar infarction. There is no midline shift or mass effect. There is no extra-axial fluid collection. The ventricles are normal in size. The orbits are symmetric and within normal limits. The calvarium is intact. The visualized paranasal sinuses and mastoid air cells are clear. CT/CT head/brain wo IV con IMPRESSION: No acute intracranial pathology.
--- NOTE | ~2023-09-04 | XR_ITS ---
EXAMINATION: XR CHEST CLINICAL INFORMATION: Fever. COMPARISON: Chest radiograph dated 02/02/2021. TECHNIQUE: Frontal view of the chest was obtained. FINDINGS: The lung apices are obscured by the patient's chin. Heart size is normal. Streaky bibasilar opacities likely represent atelectasis, however, a developing right lower lobe pneumonia is not excluded. There is no large pleural effusion. No definite pneumothorax. No acute osseous abnormality. XR/XR chest 1V IMPRESSION: Limited examination as the lung apices are obscured by the patient's chin. Streaky bibasilar opacities likely represent atelectasis, however, a developing right lower lobe pneumonia is not excluded.
--- NOTE | 2023-09-04 19:45 | ECG_ITS ---
Test Reason : ? stroke Blood Pressure : / mmHG Vent. Rate : 065 BPM Atrial Rate : 000 BPM P-R Int : 000 ms QRS Dur : 082 ms QT Int : 406 ms P-R-T Axes : 000 046 -36 degrees QTc Int : 422 ms Atrial fibrillation Anterior infarct , age undetermined ST & T wave abnormality, consider inferolateral ischemia Abnormal ECG When compared with ECG of 02-FEB-2021 10:54, Anterior infarct is now Present T wave inversion now evident in Inferior leads T wave inversion less evident in Anterior leads Referred By: Raquel Jauregui Electronically Signed By:CLAUDINE STARR
--- NOTE | 2023-09-04 19:55 | ED_ITS ---
HPI - Altered Mental Status General Chief Complaint: Stroke Stated Complaint: STROKE Time Seen by Provider: 09/04/23 19:44 Source: patient Mode of arrival: ambulatory Limitations: no limitations History of Present Illness ED Provider: Dr. Raquel Jauregui HPI narrative: Patient comes to the emergency room via ambulance from [facility]. According to the staff, the patient has not been acting normal. The staff reports that the patient is more quiet than usual. Seems to be weak, leaning towards the left. When patient arrived to the ED, patient is answering yes to every question. Patient seems altered, very warm to touch. Able to follow some commands, patient seems weak, confused, asking us not to shave her head. Initially, EMS reported right-sided weakness, then on arrival, patient says she had left-sided weakness, then it turned into right-sided weakness again and then generalized weakness. As mentioned above, patient confused, unreliable historian Related Data Home Medications ?Medication ?Instructions ?Recorded ?Confirmed carbidopa 25 mg-levodopa 100 mg 1 tab PO QID 09/04/20 12/04/22 tablet (Sinemet) digoxin 125 mcg (0.125 mg) tablet 125 mcg PO DAILY 09/04/20 12/04/22 fluvoxamine 25 mg tablet 25 mg PO BEDTIME 09/04/20 12/04/22 furosemide 40 mg tablet (Lasix) 40 mg PO DAILY 09/04/20 12/04/22 lactase 3,000 unit tablet (Lactaid) 9,000 unit PO AC 09/04/20 12/04/22 metoprolol tartrate 50 mg tablet 50 mg PO BID 09/04/20 12/04/22 risperidone 2 mg tablet (Risperdal) 2 mg PO BID 09/04/20 12/04/22 rivaroxaban 20 mg tablet (Xarelto) 20 mg PO QPM 09/04/20 02/02/21 sennosides 8.6 mg tablet (senna) 8.6 mg PO DAILY PRN Constipation 09/04/20 12/04/22 simvastatin 20 mg tablet 20 mg PO BEDTIME 09/04/20 12/04/22 valproic acid 250 mg capsule 500 mg PO DAILY 09/04/20 12/04/22 acetaminophen 325 mg tablet 650 mg PO Q6H PRN Pain 09/05/20 12/04/22 bisacodyl 10 mg rectal suppository 10 mg WI DAILY PRN Constipation 09/05/20 12/04/22 loperamide 2 mg tablet 2 mg PO Q4H PRN Diarrhea 09/05/20 12/04/22 valproic acid 250 mg capsule 1,000 mg PO BEDTIME 09/05/20 12/04/22 Allergies Allergy/AdvReac Type Severity Reaction Status Date / Time lactose Allergy Mild Unknown Verified 09/04/23 20:03 acetaminophen [From Tylenol] Allergy Unknown Verified 09/04/23 20:03 Review of Systems 2 Review of Systems: Patient reports pain all over, answering yes to every single question Yes Unobtainable due to mental condition [facility] Past Medical History Medical History Cardiomegaly OCD (obsessive compulsive disorder) Intellectual disability Hyperlipidemia Hypothyroid Hypokalemia Bilateral cataracts HTN (hypertension) Muscle weakness Borderline personality disorder Vaginal septum Fall Atrial fibrillation Schizoaffective disorder Parkinsons Surgical History (Updated 12/01/22 @ 06:37 by Laya Hunt RN) History of foot surgery Hx of tonsillectomy Family History Family History Paternal Grandmother Breast cancer Social History Social History Household Members: Unknown / Unable to assess Housing: Other Housing Other:: [facility] Do you presently have visiting nurse or other home services: No Unable to assess alcohol history related to: Unknown Alcohol intake: never Patient Tobacco Use Status: Never used Tobacco Smoked in Last 30 Days: No Use of substances other than those prescribed or required for medical reasons: No Advance Directives: No Advance Directives Information Provided: No service: No Current occupational status: disabled Physical Exam ED Vital Signs: Vital Signs - 24 hr 09/04/23 20:00 09/04/23 22:00 09/05/23 00:00 Temperature 103.2 F H 100.5 F H 98.6 F Pulse Rate 77 70 66 Respiratory Rate 20 18 18 Blood Pressure 136/62 106/57 L 112/54 L Pulse Oximetry 95 97 Oxygen Delivery Method Nasal Cannula Room Air 09/05/23 00:50 09/05/23 01:00 Temperature Pulse Rate 66 69 Respiratory Rate 14 16 Blood Pressure 103/45 L 111/51 L Pulse Oximetry 95 Oxygen Delivery Method Room Air BMI result Body Mass Index 38.6 Const Other: Appearance: Alert. Talking but not making sense, no slurred speech, unable to follow commands, seems weak Eyes: Pupils equal, round and reactive to light. ENT: Pharynx normal. Neck: Normal inspection. Neck supple. No lymph nodes noted. No crepitus CVS: Normal heart rate and rhythm. Pulses normal. Normal S1 and S2 Respiratory: No respiratory distress. Breath sounds normal. No Wheezing. No rales Abdomen: Soft and nontender. No rigidity. No distention. Skin: Skin warm and dry. Normal skin color. Normal skin turgor. Extremities: Plus freedom pitting edema bilaterally Neuro: Confused No slurred speech. Intermittently not moving right side of the body and then the left and switching back and forth Psych: calm, cooperative, normal affect Course Course Course Narrative: -patient's symptoms are not consistent with TIA/stroke -all labs and imaging pending -patient has a rectal temperature of 103.1 degrees -when patient is asked if she has been having URI symptoms, she says yes, also says yes for UTI symptoms. However, as mentioned above, patient answers yes to every question -empirically, patient was given 2 L of normal saline, based on ideal weight of 52 kg, patient is obese, also patient was given Levaquin to treat both, URI and UTI infections. All of the labs and imaging are still pending Medications Administered Discontinued Medications Generic Name Dose Route Start Last Admin Trade Name Freq PRN Reason Stop Dose Admin Acetaminophen 975 mg 09/04/23 20:15 09/04/23 20:58 Acetaminophen 325 Mg Tablet PO 09/04/23 20:16 Not Given ONCE ONE Sodium Chloride 2,000 mls @ 999 mls/hr 09/04/23 19:55 09/05/23 00:45 Ns IVCONT 09/04/23 21:55 Infused .Q2H1M ONE Infusion Levofloxacin 500 mg in 100 mls @ 100 mls/hr 09/04/23 20:15 09/04/23 22:30 Levaquin IV 09/04/23 21:14 Infused ONCE ONE Infusion Ibuprofen 600 mg 09/04/23 20:15 09/04/23 21:00 Ibuprofen 600 Mg Tablet PO 09/04/23 20:16 600 mg ONCE ONE Administration Medical Decision Making Medical Decision Making [facility] Narrative: -my interpretation of labs: Normal hematology, normal coagulation times, lactic acid 2.6, LFTs within normal limits. Urinalysis negative for UTI, serology report negative for COVID and influenza -my interpretation of head CT: No intracranial abnormality,/bleed -my interpretation chest x-ray, no obvious signs of pneumonia. However, radiology report shows the possibility of a developing right lower lobe infiltrate -as mentioned above, patient has already been treated with IV fluids and antibiotics. -patient's vitals stable, blood pressure 112/54, heart rate 66, respiratory 18, temperature 98.6 degrees, oxygen saturation 97% on room air. -I discussed the patient with Dr. Beltran, patient being admitted to the floor Differential Diagnosis Differential Diagnoses: The differential diagnosis associated with the presentation includes Admission/Observation Consideration of admission/observation: Escalation of care including admission/observation considered Consult Healthcare Provider Management of the patient was discussed with: Hospitalist Lab Data [facility] Lab Attestation statement: I reviewed the patient's lab results. 09/04/23 20:43 09/04/23 20:43 Labs: Lab Results 09/04/23 09/04/23 09/04/23 Range/Units 20:12 20:32 20:43 WBC 8.0 (4.8-10.8) X10*3/uL RBC 4.19 L (4.20-5.50) X10*6/uL Hgb 12.7 (12.0-16.0) g/dl Hct 37.9 (37.0-47.0) % MCV 90.5 (80.0-98.0) fL MCH 30.3 (27.0-33.0) pg MCHC 33.5 (31.0-35.0) g/dl RDW 13.7 (11.0-16.0) % Plt Count 142 L (160-400) X10*3/uL MPV 9.6 (9.4-12.3) fL Immature Gran % (Auto) 0.4 (0.0-0.4) % Neut % (Auto) 82.0 H (45-73) % Lymph % (Auto) 8.0 L (20-40) % Mathews % (Auto) 9.0 (2-11) % Eos % (Auto) 0.3 (0-4) % Baso % (Auto) 0.3 (0-2) % Lymph # (Auto) 0.6 L (1.2-4.9) X10*3/uL Mathews # (Auto) 0.7 (0.1-1.2) X10*3/uL Eos # (Auto) 0.0 (0.0-0.4) X10*3/uL Baso # (Auto) 0.0 (0.0-0.2) X10*3/uL Abs Immat Gran (auto) 0.03 (0.00-0.03) X10*3/uL Absolute Neuts (auto) 6.6 (2.0-8.3) x10*3/uL Absolute Nucleated RBC 0.000 (0.0-0.012) X10*3/uL Nucleated RBC % (auto) 0.0 (0.0-0.2) /100WBC PT 11.8 (11.1-13.3) SEC INR 1.0 (0.9-1.1) Sodium 138 (135-145) mmol/L Potassium 4.7 (3.3-5.1) mmol/L Chloride 101 (96-108) mmol/L Carbon Dioxide 25 (22-29) mmol/L Anion Gap 17 (12-20) BUN 14 (9-16) mg/dL Creatinine 0.77 (0.5-1.4) mg/dL Estim Creat Clear Calc 82.6 Estimated GFR > 60 Random Glucose 147 H (60-115) mg/dL Lactic Acid 2.6 H* (0.5-2.0) mmol/L Lactic Acid F/U @ 2Hr (0.5-2.0) mmol/L Calcium 10.0 D (8.4-10.2) mg/dL Magnesium 1.9 (1.6-2.6) mg/dL Total Bilirubin 0.3 (0.0-1.0) mg/dL Direct Bilirubin 0.1 (0.0-0.5) mg/dL AST 20 (5-31) U/L ALT 16 (0-31) U/L Alkaline Phosphatase 52 (39-117) U/L Troponin I High Sens 16.7 (<3.5-17.0) ng/L Total Protein 7.1 (6.5-8.0) g/dL Albumin 3.8 (3.5-5.0) g/dL Urine Color Urine Appearance Urine pH (5.0-9.0) Ur Specific Collins (1.005-1.025) Urine Protein (Neg-Trace) mg/dL Urine Glucose (UA) (Negative) mg/dL Urine Ketones (Negative) mg/dL Urine Blood (Negative) Urine Nitrite (Negative) Ur Leukocyte Esterase (Negative) Urine Opiates Screen (Not Detect) Ur Buprenorphine Scrn (Not Detect) ng/mL Ur Oxycodone Screen (Not Detect) ng/mL Urine Methadone Screen (Not Detect) ng/mL Urine Fentanyl Screen (Not Detect) Ur Barbiturates Screen (Not Detect) Ur Phencyclidine Scrn (Not Detect) Ur Amphetamines Screen (Not Detect) U Benzodiazepines Scrn (Not Detect) Urine Cocaine Screen (Not Detect) U Marijuana (THC) Screen (Not Detect) COVID-19 (HUMZA) Negative (Negative) COVID-19 Clin Com See Note Influenza Type A (RONAN) Negative (Negative) Influenza Type B (RONAN) Negative (Negative) Influenza A & B Note See Note 09/04/23 09/04/23 Range/Units 22:54 23:14 WBC (4.8-10.8) X10*3/uL RBC (4.20-5.50) X10*6/uL Hgb (12.0-16.0) g/dl Hct (37.0-47.0) % MCV (80.0-98.0) fL MCH (27.0-33.0) pg MCHC (31.0-35.0) g/dl RDW (11.0-16.0) % Plt Count (160-400) X10*3/uL MPV (9.4-12.3) fL Immature Gran % (Auto) (0.0-0.4) % Neut % (Auto) (45-73) % Lymph % (Auto) (20-40) % Mathews % (Auto) (2-11) % Eos % (Auto) (0-4) % Baso % (Auto) (0-2) % Lymph # (Auto) (1.2-4.9) X10*3/uL Mathews # (Auto) (0.1-1.2) X10*3/uL Eos # (Auto) (0.0-0.4) X10*3/uL Baso # (Auto) (0.0-0.2) X10*3/uL Abs Immat Gran (auto) (0.00-0.03) X10*3/uL Absolute Neuts (auto) (2.0-8.3) x10*3/uL Absolute Nucleated RBC (0.0-0.012) X10*3/uL Nucleated RBC % (auto) (0.0-0.2) /100WBC PT (11.1-13.3) SEC INR (0.9-1.1) Sodium (135-145) mmol/L Potassium (3.3-5.1) mmol/L Chloride (96-108) mmol/L Carbon Dioxide (22-29) mmol/L Anion Gap (12-20) BUN (9-16) mg/dL Creatinine (0.5-1.4) mg/dL Estim Creat Clear Calc Estimated GFR Random Glucose (60-115) mg/dL Lactic Acid (0.5-2.0) mmol/L Lactic Acid F/U @ 2Hr 1.9 (0.5-2.0) mmol/L Calcium (8.4-10.2) mg/dL Magnesium (1.6-2.6) mg/dL Total Bilirubin (0.0-1.0) mg/dL Direct Bilirubin (0.0-0.5) mg/dL AST (5-31) U/L ALT (0-31) U/L Alkaline Phosphatase (39-117) U/L Troponin I High Sens (<3.5-17.0) ng/L Total Protein (6.5-8.0) g/dL Albumin (3.5-5.0) g/dL Urine Color Dark Yellow Urine Appearance Clear Urine pH 5.5 (5.0-9.0) Ur Specific Collins 1.025 (1.005-1.025) Urine Protein Trace (Neg-Trace) mg/dL Urine Glucose (UA) Negative (Negative) mg/dL Urine Ketones Trace (Negative) mg/dL Urine Blood Negative (Negative) Urine Nitrite Negative (Negative) Ur Leukocyte Esterase Negative (Negative) Urine Opiates Screen Not Detected (Not Detect) Ur Buprenorphine Scrn Not Detected (Not Detect) ng/mL Ur Oxycodone Screen Not Detected (Not Detect) ng/mL Urine Methadone Screen Not Detected (Not Detect) ng/mL Urine Fentanyl Screen Not Detected (Not Detect) Ur Barbiturates Screen Not Detected (Not Detect) Ur Phencyclidine Scrn Not Detected (Not Detect) Ur Amphetamines Screen Not Detected (Not Detect) U Benzodiazepines Scrn Not Detected (Not Detect) Urine Cocaine Screen Not Detected (Not Detect) U Marijuana (THC) Screen Not Detected (Not Detect) COVID-19 (HUMZA) (Negative) COVID-19 Clin Com Influenza Type A (RONAN) (Negative) Influenza Type B (RONAN) (Negative) Influenza A & B Note Independent Interpretation I performed an independent interpretation of an: Plain X-Ray Radiology Impression Discussion of test interpretation with radiology: I have reviewed the radiologist's reading. Radiologist Impression: The lung apices are obscured by the patient's chin. Heart size is normal. Streaky bibasilar opacities likely represent atelectasis, however, a developing right lower lobe pneumonia is not excluded. There is no large pleural effusion. No definite pneumothorax. No acute osseous abnormality. XR/XR chest 1V IMPRESSION: Limited examination as the lung apices are obscured by the patient's chin. Streaky bibasilar opacities likely represent atelectasis, however, a developing right lower lobe pneumonia is not excluded. Independent Historian Clinical information obtained from an independent historian. History obtained from or confirmed by: EMS Critical Care Time Critical Care Time Critical Care Time: Yes Total Critical Care Time: 75 Attestation: I have personally provided critical care time. Time includes review of lab data, radiology results, discussion with consultants, and monitoring for potential decompensation. Intervention performed as documented. Discharge Plan Discharge Clinical Impression: Pneumonia, Altered mental status Patient Disposition: Admitted As Inpatient Prescriptions: No Action furosemide [Lasix] 40 mg Tablet 40 mg PO DAILY sennosides [senna] 8.6 mg Tablet 8.6 mg PO DAILY PRN (Reason: Constipation) risperidone [Risperdal] 2 mg Tablet 2 mg PO BID fluvoxamine 25 mg Tablet 25 mg PO BEDTIME simvastatin 20 mg Tablet 20 mg PO BEDTIME metoprolol tartrate 50 mg Tablet 50 mg PO BID lactase [Lactaid] 3,000 unit Tablet 9,000 unit PO AC digoxin 125 mcg (0.125 mg) Tablet 125 mcg PO DAILY carbidopa-levodopa [Sinemet] 25-100 mg Tablet 1 tab PO QID valproic acid 250 mg Capsule 500 mg PO DAILY Xarelto 20 mg Tablet 20 mg PO QPM acetaminophen 325 mg Tablet 650 mg PO Q6H PRN (Reason: Pain) loperamide 2 mg Tablet 2 mg PO Q4H PRN (Reason: Diarrhea) valproic acid 250 mg Capsule 1,000 mg PO BEDTIME bisacodyl 10 mg Suppository 10 mg WI DAILY PRN (Reason: Constipation) Print Language: Khmer
[2023-09-04 20:00] VITALS: BP 136/62; PULSE 77; RESP 20; TEMP 39.6; O2SAT 95; BMI 38.6
[2023-09-04 20:46] LABS: MANUAL DIFF FLAG NO
[2023-09-04] MEDS: 0.9 % Sodium Chloride 2,000 ML 999 ML IVCONT (20:47)
[2023-09-04 20:49] LABS: Basophils Percent Auto 0.3 % (0-2); Eosinophils Percent Auto 0.3 % (0-4); Hematocrit 37.9 % (37.0-47.0); Hemoglobin 12.7 g/dl (12.0-16.0); Imm Gran Abs Auto 0.03 X10*3/uL (0.00-0.03); Imm Gran Pct Auto 0.4 % (0.0-0.4); Lymphocytes Absolute Auto 0.6 X10*3/uL (1.2-4.9); Mean Corpuscular HGB Conc 33.5 g/dl (31.0-35.0); Mean Corpuscular Hemoglobin 30.3 pg (27.0-33.0); Mean Corpuscular Volume 90.5 fL (80.0-98.0); Mean Platelet Volume 9.6 fL (9.4-12.3); Monocytes Absolute Auto 0.7 X10*3/uL (0.1-1.2); Neutrophils Absolute Auto 6.6 x10*3/uL (2.0-8.3); Platelet Count 142 X10*3/uL (160-400); Red Blood Count 4.19 X10*6/uL (4.20-5.50); Red Cell Distribution Width 13.7 % (11.0-16.0)
[2023-09-04 20:54] LABS: Prothrombin Time 11.8 SEC (11.1-13.3)
[2023-09-04] MEDS: levoFLOXacin/D5W 500 MG/100 ML PIGGYBACK 100 MG IV (20:54)
[2023-09-04] MEDS: Ibuprofen 600 MG TABLET PO (21:00)
[2023-09-04 21:02] LABS: COVID-19 Test Negative (Negative); IDNOW Serial# 08D9AD1C; IDNOW Serial# 152EDE1D; Influenza A Negative (Negative); Influenza B2 Negative (Negative)
--- NOTE | 2023-09-04 21:03 | PC.NURSE ---
Pt difficult stick. IV access obtained by second nurse.
[2023-09-04 21:04] LABS: Troponin-I High Sensitivity 16.7 ng/L (<3.5-17.0)
[2023-09-04 21:06] LABS: Lactic Acid 2.6 mmol/L (0.5-2.0)
[2023-09-04 21:12] LABS: Alanine Aminotransferase 16 U/L (0-31); Albumin Level 3.8 g/dL (3.5-5.0); Alkaline Phosphatase 52 U/L (39-117); Anion Gap 17 (12-20); Aspartate Amino Transferase 20 U/L (5-31); Bilirubin Direct 0.1 mg/dL (0.0-0.5); Bilirubin Total 0.3 mg/dL (0.0-1.0); Blood Urea Nitrogen 14 mg/dL (9-16); Carbon Dioxide 25 mmol/L (22-29); Chloride 101 mmol/L (96-108); Creatinine Clr Calc Pharmacy 82.6; Estimated Glomerular Filt Rate > 60; Glucose Random 147 mg/dL (60-115); Magnesium 1.9 mg/dL (1.6-2.6); Potassium 4.7 mmol/L (3.3-5.1); Sodium 138 mmol/L (135-145); Total Protein 7.1 g/dL (6.5-8.0)
[2023-09-04 22:00] VITALS: BP 106/57; PULSE 70; RESP 18; TEMP 38.1
[2023-09-04 22:46] LABS: Reflex Lactate? Lactic Acid Added
[2023-09-04 23:07] LABS: Appearance Urine Clear; Color Urine Dark Yellow; Glucose Urine UA Negative (Negative); Leukocyte Esterase Urine Negative (Negative); Nitrite Urine Negative (Negative); PH 5.5 (5.0-9.0); Specific Gravity - Urine 1.025 (1.005-1.025); Urine Blood Negative (Negative); Urine Ketones Trace mg/dL (Negative); Urine Protein Trace mg/dL (Neg-Trace)
[2023-09-04 23:16] LABS: Amphetamine Screen Urine Not Detected (Not Detect); Barbiturates, Urine Not Detected (Not Detect); Benzodiazepines Screen Urine Not Detected (Not Detect); Buprenorphine Scr Not Detected (Not Detect); Cannabinoid Screen Urine Not Detected (Not Detect); Cocaine Screen Urine Not Detected (Not Detect); Fentanyl, urine Not Detected (Not Detect); Methadone Screen, Urine Not Detected (Not Detect); Opiate Screen Urine Not Detected (Not Detect); Oxycodone Screen Urine Not Detected (Not Detect); Phencyclidine Screen Urine Not Detected (Not Detect)
--- NOTE | 2023-09-04 23:30 | PC.NURSE ---
Pt from [facility], Pt A&Ox3, denies any pain, Per EMS, staff reports left sided facial droop with left arm drift, LWKT 4:30pm. Pt on thinners. PERLL, No facial droop noted, or extremity ataxia. Pt passed nursing swallow eval. Med given PO with no issues. Pt straight cath for urine sample, Pt tolerated well. Urine sent to lab.
[2023-09-04 23:33] LABS: ~Lactic Acid-LAB USE ONLY 1.9 mmol/L (0.5-2.0)
[2023-09-05] VITALS (14 sets, daily range): BP systolic 103–191; BP diastolic 45–95; PULSE 58–75; RESP 13–20; TEMP 36.6–37; O2SAT 94–100
[2023-09-05] MEDS: vancomycin/NS 2,000 MG/500 ML PLAST..BAG 250 MG IV (03:37)
[2023-09-05] MEDS: 0.9 % Sodium Chloride 1,000 ML 100 ML IVCONT ×2 (03:38→13:21)
[2023-09-05 05:25] LABS: MANUAL DIFF FLAG NO
[2023-09-05 05:28] LABS: Basophils Percent Auto 0.4 % (0-2); Eosinophils Percent Auto 0.8 % (0-4); Hematocrit 33.1 % (37.0-47.0); Hemoglobin 10.9 g/dl (12.0-16.0); Imm Gran Abs Auto 0.05 X10*3/uL (0.00-0.03); Lymphocytes Absolute Auto 1.3 X10*3/uL (1.2-4.9); Lymphocytes Percent Auto 25.4 % (20-40); Mean Corpuscular HGB Conc 32.9 g/dl (31.0-35.0); Mean Corpuscular Hemoglobin 30.1 pg (27.0-33.0); Mean Corpuscular Volume 91.4 fL (80.0-98.0); Mean Platelet Volume 9.6 fL (9.4-12.3); Monocytes Absolute Auto 0.7 X10*3/uL (0.1-1.2); Monocytes Percent Auto 14.1 % (2-11); Neutrophils Percent Auto 58.3 % (45-73); Platelet Count 117 X10*3/uL (160-400); Red Blood Count 3.62 X10*6/uL (4.20-5.50); Red Cell Distribution Width 13.9 % (11.0-16.0); White Blood Count 5.2 X10*3/uL (4.8-10.8)
[2023-09-05 05:44] LABS: Alanine Aminotransferase 13 U/L (0-31); Albumin Level 3.1 g/dL (3.5-5.0); Alkaline Phosphatase 42 U/L (39-117); Anion Gap 13 (12-20); Aspartate Amino Transferase 9 U/L (5-31); Bilirubin Total 0.3 mg/dL (0.0-1.0); Blood Urea Nitrogen 16 mg/dL (9-16); Calcium 8.7 mg/dL (8.4-10.2); Carbon Dioxide 24 mmol/L (22-29); Chloride 107 mmol/L (96-108); Creatinine Clr Calc Pharmacy 83.7; Estimated Glomerular Filt Rate > 60; Glucose Random 112 mg/dL (60-115); Magnesium 1.9 mg/dL (1.6-2.6); Potassium 3.7 mmol/L (3.3-5.1); Sodium 140 mmol/L (135-145); Total Protein 5.5 g/dL (6.5-8.0)
--- NOTE | 2023-09-05 05:52 | MHC.EDTECH ---
pt repositioned in bed and in position of comfort. pt has call gray within reach. no other needs at this time
--- NOTE | 2023-09-05 06:42 | P.HPHOSP_ITS ---
History of Present Illness Date of Service: 09/05/23 Attending physician on admission: Philip Tidwell Chief Complaint: Weakness Zahida Sy is a 63 years old woman with past medical history significant for schizoaffective disorder, intellectual disability, generalized muscle weakness, essential hypertension, atrial fibrillation on Xarelto, parkinsonism, hypothyroidism, hyperlipidemia and gait abnormalities was brought to the emergency department from [facility] after she was noted not being active normal by staff. Patient also was noted to be more quiet than usual. EMS reported right- sided weakness but initially patient reported left-sided weakness then right- sided. [facility] nursing notes: Patient not observed sludge on her right side, unable to follow commands when asked to sit up, right eye appear to be close more than the right, she had the lateral weekend grasps when asked how the dressing was feeling she appear with a blank stare blood pressure 150/90 respiratory rate 16 oxygen saturation 93% In the ED, she was found to have fever 103.2. There is no tachycardia or hypotension. Oxygen saturation is normal requiring 2 liters/minute supplemental oxygen via nasal cannula. Blood workup showed no leukocytosis. There are no electrolyte imbalances. Renal function and LFTs are normal. Urinalysis showed no finding consistent with urinary tract infection. Viral testing COVID-19, influenza RSV is negative. ECG showed atrial fibrillation, heart rate [address] scan showed no acute intracranial abnormality. CXR showed streaky bibasilar opacities likely represent atelectasis with right lower lobe pneumonia could not be excluded. ED tx: NS 2 L bolus, Levaquin 500 mg IV, acetaminophen 975 mg p.o., ibuprofen 600 mg p.o. Review of Systems 2 Review of Systems: Yes Unobtainable due to mental condition [facility] Medical History Cardiomegaly OCD (obsessive compulsive disorder) Intellectual disability Hyperlipidemia Hypothyroid Hypokalemia Bilateral cataracts HTN (hypertension) Muscle weakness Borderline personality disorder Vaginal septum Fall Atrial fibrillation Schizoaffective disorder Parkinsons Family History Paternal Grandmother Breast cancer Surgical History (Updated 12/01/22 @ 06:37 by Laya Hunt RN) History of foot surgery Hx of tonsillectomy Social History Household Members: Unknown / Unable to assess Housing: Other Housing Other:: [facility] Do you presently have visiting nurse or other home services: No Unable to assess alcohol history related to: Unknown Alcohol intake: never Patient Tobacco Use Status: Never used Tobacco Smoked in Last 30 Days: No Use of substances other than those prescribed or required for medical reasons: No Advance Directives: No Advance Directives Information Provided: No service: No Current occupational status: disabled Meds Allergies Allergy/AdvReac Type Severity Reaction Status Date / Time lactose Allergy Mild Unknown Verified 09/04/23 20:03 acetaminophen [From Tylenol] Allergy Unknown Verified 09/04/23 20:03 Active Medications: Current Medications Acetaminophen (Acetaminophen 325 Mg Tablet) 975 mg PO Q6H PRN PRN Reason: mild pain, headache or fever Piperacillin Sod/Tazobactam (Sod 3.375 gm/ Sodium Chloride) 50 mls @ 100 mls/hr IV Q6H [place] Sodium Chloride (Ns) 1,000 mls @ 100 mls/hr IVCONT .Q10H [facility] Last Admin: 09/05/23 03:38 Dose: 100 mls/hr Pharmacy Consult (Consult Rx Vancomycin Dosing) 1 each MISCELLANE DAILY PRN PRN Reason: Consult order Sodium Chloride (0.9 % Sodium Chloride Flush 3 Ml Syringe) 3 ml IVFLUSH QSHIFT [facility] Home Medications ?Medication ?Instructions ?Recorded ?Confirmed ?Last Taken ?Type carbidopa 25 mg-levodopa 100 mg 1 tab PO QID 09/04/20 12/04/22 Unknown History tablet (Sinemet) digoxin 125 mcg (0.125 mg) tablet 125 mcg PO DAILY 09/04/20 12/04/22 Unknown History fluvoxamine 25 mg tablet 25 mg PO BEDTIME 09/04/20 12/04/22 Unknown History furosemide 40 mg tablet (Lasix) 40 mg PO DAILY 09/04/20 12/04/22 Unknown History lactase 3,000 unit tablet (Lactaid) 9,000 unit PO AC 09/04/20 12/04/22 Unknown History metoprolol tartrate 50 mg tablet 50 mg PO BID 09/04/20 12/04/22 Unknown History risperidone 2 mg tablet (Risperdal) 2 mg PO BID 09/04/20 12/04/22 Unknown History rivaroxaban 20 mg tablet (Xarelto) 20 mg PO QPM 09/04/20 02/02/21 11/30/22 History sennosides 8.6 mg tablet (senna) 8.6 mg PO DAILY PRN Constipation 09/04/20 12/04/22 Unknown History simvastatin 20 mg tablet 20 mg PO BEDTIME 09/04/20 12/04/22 Unknown History valproic acid 250 mg capsule 500 mg PO DAILY 09/04/20 12/04/22 Unknown History acetaminophen 325 mg tablet 650 mg PO Q6H PRN Pain 09/05/20 12/04/22 Unknown History bisacodyl 10 mg rectal suppository 10 mg MI DAILY PRN Constipation 09/05/20 12/04/22 Unknown History loperamide 2 mg tablet 2 mg PO Q4H PRN Diarrhea 09/05/20 12/04/22 Unknown History valproic acid 250 mg capsule 1,000 mg PO BEDTIME 09/05/20 12/04/22 Unknown History Physical Exam 2 Vital Signs and Narrative: Vital Signs: Last Vital Signs Temp 98.6 F 09/05/23 00:00 Pulse 58 09/05/23 03:43 Resp 17 09/05/23 03:43 BP 115/56 L 09/05/23 03:43 Pulse Ox 94 09/05/23 03:43 O2 Del Method Nasal Cannula 09/05/23 03:43 O2 Flow Rate 2 09/05/23 03:43 Oxygen Flow Rate 2 09/04/23 20:00 BMI result Body Mass Index 38.6 Constitutional - Lethargic. Awakes upon calling headache profile asleep quickly. HEENT - PERRL. Dry oral mucosa. Heart r - S1S2, RRR, No edema Lungs - Normal lung expansion, Normal respiratory effort, No respiratory distress, CTA bilaterally Abdomen - NT / ND; +BS; No rebound or guarding Extremities - edema. Skin - Warm/Dry Neurological - Lethargic. Psychological - no agitation. Results Labs 09/05/23 04:35 09/05/23 04:35 Labs: Laboratory Results - last 24 hr 09/04/23 09/04/23 09/04/23 20:12 20:32 20:43 MCV 90.5 MCH 30.3 MCHC 33.5 RDW 13.7 Plt Count 142 L MPV 9.6 Immature Gran % (Auto) 0.4 Neut % (Auto) 82.0 H Lymph % (Auto) 8.0 L Wright % (Auto) 9.0 Eos % (Auto) 0.3 Baso % (Auto) 0.3 Lymph # (Auto) 0.6 L Wright # (Auto) 0.7 Eos # (Auto) 0.0 Baso # (Auto) 0.0 Abs Immat Gran (auto) 0.03 Absolute Neuts (auto) 6.6 Absolute Nucleated RBC 0.000 Nucleated RBC % (auto) 0.0 PT 11.8 INR 1.0 Anion Gap 17 Estim Creat Clear Calc 82.6 Estimated GFR > 60 Random Glucose 147 H Lactic Acid 2.6 H* Lactic Acid F/U @ 2Hr Calcium 10.0 D Magnesium 1.9 Total Bilirubin 0.3 Direct Bilirubin 0.1 AST 20 ALT 16 Alkaline Phosphatase 52 Troponin I High Sens 16.7 Total Protein 7.1 Albumin 3.8 Urine Color Urine Appearance Urine pH Ur Specific [place] Urine Protein Urine Glucose (UA) Urine Ketones Urine Blood Urine Nitrite Ur Leukocyte Esterase Urine Opiates Screen Ur Buprenorphine Scrn Ur Oxycodone Screen Urine Methadone Screen Urine Fentanyl Screen Ur Barbiturates Screen Ur Phencyclidine Scrn Ur Amphetamines Screen U Benzodiazepines Scrn Urine Cocaine Screen U Marijuana (THC) Screen COVID-19 (HUMZA) Negative COVID-19 Clin Com See Note Influenza Type A (RONAN) Negative Influenza Type B (RONAN) Negative Influenza A & B Note See Note 09/04/23 09/04/23 09/05/23 22:54 23:14 04:35 MCV 91.4 MCH 30.1 MCHC 32.9 RDW 13.9 Plt Count 117 L MPV 9.6 Immature Gran % (Auto) 1.0 H Neut % (Auto) 58.3 Lymph % (Auto) 25.4 Wright % (Auto) 14.1 H Eos % (Auto) 0.8 Baso % (Auto) 0.4 Lymph # (Auto) 1.3 Wright # (Auto) 0.7 Eos # (Auto) 0.0 Baso # (Auto) 0.0 Abs Immat Gran (auto) 0.05 H Absolute Neuts (auto) 3.0 Absolute Nucleated RBC 0.000 Nucleated RBC % (auto) 0.0 PT INR Anion Gap 13 Estim Creat Clear Calc 83.7 Estimated GFR > 60 Random Glucose 112 Lactic Acid Lactic Acid F/U @ 2Hr 1.9 Calcium 8.7 D Magnesium 1.9 Total Bilirubin 0.3 Direct Bilirubin AST 9 ALT 13 Alkaline Phosphatase 42 Troponin I High Sens Total Protein 5.5 L Albumin 3.1 L Urine Color Dark Yellow Urine Appearance Clear Urine pH 5.5 Ur Specific [place]asper 1.025 Urine Protein Trace Urine Glucose (UA) Negative Urine Ketones Trace Urine Blood Negative Urine Nitrite Negative Ur Leukocyte Esterase Negative Urine Opiates Screen Not Detected Ur Buprenorphine Scrn Not Detected Ur Oxycodone Screen Not Detected Urine Methadone Screen Not Detected Urine Fentanyl Screen Not Detected Ur Barbiturates Screen Not Detected Ur Phencyclidine Scrn Not Detected Ur Amphetamines Screen Not Detected U Benzodiazepines Scrn Not Detected Urine Cocaine Screen Not Detected U Marijuana (THC) Screen Not Detected COVID-19 (HUMZA) COVID-19 Clin Com Influenza Type A (RONAN) Influenza Type B (RONAN) Influenza A & B Note Imaging Radiologist's Impressions: Impressions Chest X-Ray 09/04/23 20:00 IMPRESSION: Limited examination as the lung apices are obscured by the patient's chin. Streaky bibasilar opacities likely represent atelectasis, however, a developing right lower lobe pneumonia is not excluded. Head CT 09/04/23 21:38 IMPRESSION: No acute intracranial pathology. Assessment and Plan (1) Altered mental status: Qualifiers: Altered mental status type: somnolence Qualified Code(s): R40.0 - Somnolence Status: Acute (2) Pneumonia: Qualifiers: Pneumonia type: due to unspecified organism Laterality: unspecified laterality Lung location: unspecified part of lung Qualified Code(s): J18.9 - Pneumonia, unspecified organism Status: Acute Plan Zahida Sy is a 63 years old woman admitted with: * Decreased level of consciousness/acute encephalopathy. ? Stroke. Fever (+). Likely secondary to pneumonia. Admit to hospitalist service. Telemetry. Pulse oximetry. Empiric IV antibiotic therapy with vancomycin and Zosyn. Continue IV fluids. Blood culture obtained we will follow results. Aspiration and fall precautions. Check head and neck CTA and brain MRI. Neurology consult. * Atrial fibrillation, rate controlled. Telemetry. Continue Xarelto and metoprolol. * Hyperlipidemia. Continue statin and Lovaza. * Hypothyroidism. Continue levothyroxine. Check TSH. * Essential hypertension. Continue mental health. * Schizoaffective disorder. Continue home medications. DVT prophylaxis: Xarelto Code status: Full Patient will need hospitalization for at least 2 midnights for decreased level of consciousness and pneumonia treatment with IV antibiotics, close monitoring of vital signs evaluation by specialist. Quality Stroke Does the patient have a stroke diagnosis?: No Reason for No Anti-thrombotic by Day Two: N/A - Med Ordered VTE Prior VTE?: No VTE Risk Level:: Medical - moderate - high VTE Device Contraindication: Treatment Not Indicated VTE Drug Contraindication: N/A - Med Ordered
--- NOTE | 2023-09-05 07:09 | PHA.PROG ---
Admission Date/Time: September 05, 2023 03:16 Indication: Sepsis Weight in k.8 kg Adjusted body weight in Kg: [place] body weight in Kg: Obesity Dosing Indication % IBW: Serum Creatinine - Last 168 Hours 09/04/23 09/05/23 20:43 04:35 Creatinine 0.77 0.76 Estimated CrCl and GFR - Last 168 Hours 09/04/23 09/05/23 20:43 04:35 Estim Creat Clear Calc 82.6 83.7 Estimated GFR > 60 > 60 Vancomycin Loading Dose: 2000mg x 1 Current Vancomycin Dosing Regimen: 750mg Q12H Vancomycin Monitoring using AUC goal of 400 - 600 range with trough as surrogate marker: 461mg/L Date and Time for next Vancomycin Level to be drawn: 09/05 @1400 Pharmacist Comments on Vancomycin Plan: Obese model being used; predicted trough of 14.1 mg/L; will continue to monitor and adjust Vancomycin dosing will take advantage of [employer] as a clinical decision support tool that uses Bayesian modeling to calculate individual patient's pharmacokinetic parameters and forecast the patient's drug concentration time course with the target goal AUC 24 range of 400 - 600 mg/L/hr.
[2023-09-05] MEDS: Piperacillin Sodium/Tazobactam 3.375 GM in 0.9 % Sodium Chloride 50 ML IV ×3 (07:17→17:57)
--- NOTE | 2023-09-05 07:22 | PC.NURSE ---
Assumed care of patient, alert and responsive, patient with paranoia asking if she will be shot today, able to be re directed and assured she is safe. VSS, titrated to 1 liter NC
[2023-09-05 09:03] LABS: Glucose, Whole Blood 159 mg/dL (60-115)
--- NOTE | 2023-09-05 10:07 | PC.NURSE ---
Patient stated no to MRI , stating she is not going in a tube , provider notified
--- NOTE | 2023-09-05 11:46 | PM.EVENT ---
Event Note Date of Service: 09/10/23 Event Note: Zahida Sy is a 63 years old woman admitted with decreased level of consciousness Acute encephalopathy. ? Stroke. Fever (+). Likely secondary to pneumonia. Telemetry. Pulse oximetry. Empiric IV antibiotic therapy with vancomycin and Zosyn. Continue IV fluids. Blood culture obtained we will follow results. Aspiration and fall precautions. Check head and neck CTA and brain MRI, patient refused MRI Neurology consult. Atrial fibrillation, rate controlled. Telemetry. Continue Xarelto and metoprolol. Hyperlipidemia. Continue statin and Lovaza. Hypothyroidism. Continue levothyroxine. TSH 2.0 Essential hypertension. Continue mental health. Schizoaffective disorder. Continue home medications. DVT prophylaxis: Keysha Attending Dr. Triplett Code status: Full Patient will need hospitalization for at least 2 midnights for decreased level of consciousness and pneumonia treatment with IV antibiotics, close monitoring of vital signs evaluation by specialist. Time Spent With Patient Time: Total time managing care of this patient today ____ minutes.
--- NOTE | 2023-09-05 12:53 | PHA.MEDREC ---
Pharmacy Consult ? Medication Reconciliation Pharmacy has completed the medication reconciliation. used list from [employer]. Patient also takes ACT total care Dry mouth solution (sodium fluoride 0.02%) 15 mL BID
--- NOTE | 2023-09-05 13:00 | MHC.EDTECH ---
pt was found incontinent of urine, aureliano care was done, bed linen was changed, pt repositioned to right side, call gray within reach. rn aware
--- NOTE | 2023-09-05 13:25 | MHC.CM.PN ---
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 She does not have any HCP, or contacts listed. CM met with pt and she said that the only person that she would say is a contact is her cousin Raven who lives in [place]. She was not able to say how long she has lived at [facility]. She uses a walker. DCP is to return to [facility] at [place]. Transportation will require [place] Medicaid auth. CM to follow for DC needs.
--- NOTE | 2023-09-05 14:43 | PM.NEUROCN ---
History of Present Illness Data of Consult Service Date: 09/05/23 Primary Care Provider: Cristofer Lake DO HPI Reason for consult: Altered mental status This is a 63 years old woman with h/o schizoaffective disorder, intellectual disability, generalized muscle weakness, essential hypertension, atrial fibrillation on Xarelto, parkinsonism, hypothyroidism, hyperlipidemia and gait abnormalities, who was brought to the emergency department from [facility] after she was noted not being normally active by staff, and was noted to be more quiet than usual. EMS reported right-sided weakness but initially patient reported left-sided weakness then right-sided. [facility] nursing notes: Patient was unable to follow commands when asked to sit up, right eye appeared to be more closed than the right, she had weakend grasps, she appeared to stare blankly blood pressure 150/90 respiratory rate 16 oxygen saturation 93% In the ED, she was found to have fever 103.2. There is no tachycardia or hypotension. Oxygen saturation is normal requiring 2 liters/minute supplemental oxygen via nasal cannula. Blood workup showed no leukocytosis. There are no electrolyte imbalances. Renal function and LFTs are normal. Urinalysis showed no finding consistent with urinary tract infection. Viral testing COVID-19, influenza RSV is negative. ECG showed atrial fibrillation, heart rate [address] scan showed no acute intracranial abnormality. CXR showed streaky bibasilar opacities likely represent atelectasis with right lower lobe pneumonia could not be excluded. She now appears to be back to her baseline is alert, pleasant, cooperative and oriented and offers no complaints Review of Systems Review of Systems: Patient reports pain all over, answering yes to every single question Yes Unobtainable due to mental condition PMFSH Past Medical History Medical History Cardiomegaly OCD (obsessive compulsive disorder) Intellectual disability Hyperlipidemia Hypothyroid Hypokalemia Bilateral cataracts HTN (hypertension) Muscle weakness Borderline personality disorder Vaginal septum Fall Atrial fibrillation Schizoaffective disorder Parkinsons Family History Family History Paternal Grandmother Breast cancer Surgical History Surgical History History of foot surgery Hx of tonsillectomy Social History Social History Household Members: Unknown / Unable to assess Housing: Other Housing Other:: [facility] Do you presently have visiting nurse or other home services: No Unable to assess alcohol history related to: Unknown Alcohol intake: never Patient Tobacco Use Status: Never used Tobacco service: No Current occupational status: disabled Meds Allergies Allergy/AdvReac Type Severity Reaction Status Date / Time lactose Allergy Mild Unknown Verified 09/04/23 20:03 acetaminophen [From Tylenol] Allergy Unknown Verified 09/04/23 20:03 Active Medications: Current Medications Acetaminophen (Acetaminophen 325 Mg Tablet) 975 mg PO Q6H PRN PRN Reason: mild pain, headache or fever Piperacillin Sod/Tazobactam (Sod 3.375 gm/ Sodium Chloride) 50 mls @ 100 mls/hr IV Q6H [facility] Last Infusion: 09/05/23 13:21 Dose: Infused Sodium Chloride (Ns) 1,000 mls @ 100 mls/hr IVCONT .Q10H [facility] Last Admin: 09/05/23 13:21 Dose: 100 mls/hr Vancomycin HCl 750 mg/ Sodium (Chloride) 265 mls @ 265 mls/hr IV Q12H [facility] Pharmacy Consult (Consult Rx Vancomycin Dosing) 1 each MISCELLANE DAILY PRN PRN Reason: Consult order Sodium Chloride (0.9 % Sodium Chloride Flush 3 Ml Syringe) 3 ml IVFLUSH QSHIFT [facility] Last Admin: 09/05/23 07:22 Dose: Not Given Home Medications ?Medication ?Instructions ?Recorded ?Confirmed ?Last Taken ?Type carbidopa 25 mg-levodopa 100 mg 1 tab PO DAILY 09/04/20 09/05/23 Unknown History tablet (Sinemet) furosemide 40 mg tablet (Lasix) 40 mg PO DAILY 09/04/20 09/05/23 Unknown History lactase 3,000 unit tablet (Lactaid) 9,000 unit PO AC 09/04/20 09/05/23 Unknown History metoprolol tartrate 50 mg tablet 50 mg PO BID 09/04/20 09/05/23 Unknown History risperidone 2 mg tablet (Risperdal) 2 mg PO BID 09/04/20 09/05/23 Unknown History rivaroxaban 20 mg tablet (Xarelto) 20 mg PO BEDTIME 09/04/20 09/05/23 11/30/22 History sennosides 8.6 mg tablet (senna) 8.6 mg PO DAILY PRN Constipation 09/04/20 09/05/23 Unknown History simvastatin 20 mg tablet 40 mg PO BEDTIME 09/04/20 09/05/23 Unknown History valproic acid 250 mg capsule 500 mg PO DAILY 09/04/20 09/05/23 Unknown History acetaminophen 325 mg tablet 650 mg PO Q6H PRN pain or fever 09/05/20 09/05/23 Unknown History bisacodyl 10 mg rectal suppository 10 mg NE DAILY PRN Constipation 09/05/20 09/05/23 Unknown History loperamide 2 mg tablet 2 mg PO QID PRN Diarrhea 09/05/20 09/05/23 Unknown History valproic acid 250 mg capsule 1,000 mg PO BEDTIME 09/05/20 09/05/23 Unknown History aluminum-mag hydroxide-simethicone 30 ml PO Q6H PRN GI discomfort 09/05/23 09/05/23 Unknown History 200 mg-200 mg-20 mg/5 mL oral susp digoxin 250 mcg (0.25 mg) tablet 250 mcg PO DAILY 09/05/23 09/05/23 Unknown History furosemide 20 mg tablet 20 mg PO DAILY 09/05/23 09/05/23 Unknown History guaifenesin 100 mg/5 mL oral liquid 200 mg PO Q4H PRN Cough 09/05/23 09/05/23 Unknown History lactulose 10 gram/15 mL oral 20 g PO DAILY 09/05/23 09/05/23 Unknown History solution levothyroxine 100 mcg tablet 100 mcg PO DAILY@0600 09/05/23 09/05/23 Unknown History nystatin 100,000 unit/gram topical 1 appl topical BID 09/05/23 09/05/23 Unknown History powder omega-3 acid ethyl esters 1 gram 2 cap PO BID 09/05/23 09/05/23 Unknown History capsule (Lovaza) pimavanserin 10 mg tablet 20 mg PO DAILY 09/05/23 09/05/23 Unknown History (Nuplazid) potassium chloride 20 mEq 40 meq PO DAILY 09/05/23 09/05/23 Unknown History tablet,extended release(part/cryst) risperidone 1 mg tablet 1 mg PO BID 09/05/23 09/05/23 Unknown History sodium phosphates 19 gram-7 118 ml NE DAILY PRN Constipation 09/05/23 09/05/23 Unknown History gram/118 mL enema (Fleet Enema) Physical Exam Vital Signs: Vital Signs: Last Vital Signs Temp 98.4 F 09/05/23 12:20 Pulse 60 09/05/23 12:20 Resp 16 09/05/23 12:20 BP 182/59 H 09/05/23 12:20 Pulse Ox 100 09/05/23 12:20 O2 Del Method Nasal Cannula 09/05/23 12:20 O2 Flow Rate 1 09/05/23 12:20 Oxygen Flow Rate 2 09/04/23 20:00 BMI result Body Mass Index 38.6 Const: Other: Appearance: Alert. Talking but not making sense, no slurred speech, unable to follow commands, seems weak Eyes: Pupils equal, round and reactive to light. ENT: Pharynx normal. Neck: Normal inspection. Neck supple. No lymph nodes noted. No crepitus CVS: Normal heart rate and rhythm. Pulses normal. Normal S1 and S2 Respiratory: No respiratory distress. Breath sounds normal. No Wheezing. No rales Abdomen: Soft and nontender. No rigidity. No distention. Skin: Skin warm and dry. Normal skin color. Normal skin turgor. Extremities: Plus freedom pitting edema bilaterally Neuro: Confused No slurred speech. Intermittently not moving right side of the body and then the left and switching back and forth Psych: calm, cooperative, normal affect General: cooperative HEENT: Head: Yes normal to inspection Face and sinus: Yes normal facial exam Mouth: Normal oral and palatal mucosa present Teeth and gingiva: dentition normal Eyes: General: appearance normal, both eyes and all related structures Pupils: Equal, round and reactive pupils present Resp: Effort & Inspection: normal respiratory effort Cardio: Rate: regular rate Rhythm: regular rhythm GI: Palpation (GI): Soft to palpation and nontender : General: Yes no CVA tenderness Back/Spine/Pelvis: Back: no CVA tenderness Skin: General skin exam: no rashes or lesions noted Neuro: Other: She's alert, pleasant and cooperative. Speech is normal. She's oriented x3. Cranial nerves II through XII are normal. Muscle tone and strength are normal in all 4 extremities. She walks around with a walker. General: moves all extremities Cranial nerves: Yes Equal, round and reactive pupils present Extrem: General: Yes normal to inspection Psych: Appearance: grossly normal Mental Status: mental status grossly normal Results Labs 09/05/23 04:35 09/05/23 04:35 Labs: Short CBC 09/04/23 09/05/23 Range/Units 20:43 04:35 WBC 8.0 5.2 (4.8-10.8) X10*3/uL Hgb 12.7 10.9 L (12.0-16.0) g/dl Hct 37.9 33.1 L (37.0-47.0) % Plt Count 142 L 117 L (160-400) X10*3/uL BMP 09/04/23 09/05/23 20:43 04:35 Sodium 138 140 Potassium 4.7 3.7 D Chloride 101 107 Carbon Dioxide 25 24 BUN 14 16 Creatinine 0.77 0.76 Calcium 10.0 D 8.7 D Liver Function 09/04/23 09/05/23 Range/Units 20:43 04:35 Total Bilirubin 0.3 0.3 (0.0-1.0) mg/dL Direct Bilirubin 0.1 (0.0-0.5) mg/dL AST 20 9 (5-31) U/L ALT 16 13 (0-31) U/L Alkaline Phosphatase 52 42 (39-117) U/L Albumin 3.8 3.1 L (3.5-5.0) g/dL Urine 09/04/23 Range/Units 22:54 Urine Color Dark Yellow Urine Appearance Clear Urine pH 5.5 (5.0-9.0) Ur Specific [place] 1.025 (1.005-1.025) Urine Protein Trace (Neg-Trace) mg/dL Urine Glucose (UA) Negative (Negative) mg/dL Assessment and Plan (1) Altered mental status: Qualifiers: Altered mental status type: somnolence Qualified Code(s): R40.0 - Somnolence Status: Acute She appears to be back to her baseline at this point. Her altered mental status probably related to encephalopathy related to pneumonia. Imaging study and neurological examination is nonfocal. No further neurological workup is necessary. There was no witnessed seizure. (2) Pneumonia: Qualifiers: Laterality: unspecified laterality Lung location: unspecified part of lung Pneumonia type: due to unspecified organism Qualified Code(s): J18.9 - Pneumonia, unspecified organism Status: Acute (3) CAP (community acquired pneumonia): Status: Acute Plan Zahida Sy is a 63 years old woman admitted with: Decreased level of consciousness/acute encephalopathy. ? Stroke. Fever (+). Likely secondary to pneumonia. Admit to hospitalist service. Telemetry. Pulse oximetry. Empiric IV antibiotic therapy with vancomycin and Zosyn. Continue IV fluids. Blood culture obtained we will follow results. Aspiration and fall precautions. Check head and neck CTA and brain MRI. Neurology consult. Atrial fibrillation, rate controlled. Telemetry. Continue Xarelto and metoprolol. Hyperlipidemia. Continue statin and Lovaza. Hypothyroidism. Continue levothyroxine. Check TSH. Essential hypertension. Continue mental health. Schizoaffective disorder. Continue home medications. DVT prophylaxis: Xarelto Code status: Full Patient will need hospitalization for at least 2 midnights for decreased level of consciousness and pneumonia treatment with IV antibiotics, close monitoring of vital signs evaluation by specialist. Procedures Date of Service Date of Service: 09/05/23
[2023-09-05] MEDS: vancomycin HCL 750 MG in 0.9 % Sodium Chloride 250 ML 265 MG IV (16:30)
--- NOTE | 2023-09-05 16:53 | W.PM.IDCN ---
History of Present Illness Data of Consult Service Date: 09/05/23 Requesting physician: So Valdovinos Primary Care Provider: Cristofer Lake DO HPI Reason for consult: fever of unknown origin She presents with fever and confusion reported [facility]. She has had similar episodes in past. She has some streaky atelectasis lungs. Review of Systems Review of Systems: Yes all other systems are reviewed and are negative [facility] Past Medical History Medical History Cardiomegaly OCD (obsessive compulsive disorder) Intellectual disability Hyperlipidemia Hypothyroid Hypokalemia Bilateral cataracts HTN (hypertension) Muscle weakness Borderline personality disorder Vaginal septum Fall Atrial fibrillation Schizoaffective disorder Parkinsons Family History Family History Paternal Grandmother Breast cancer Family history: reviewed and not pertinent Surgical History Surgical History History of foot surgery Hx of tonsillectomy Social History Social History Household Members: Unknown / Unable to assess Housing: Other Housing Other:: [facility] Do you presently have visiting nurse or other home services: No Unable to assess alcohol history related to: Unknown Alcohol intake: never Patient Tobacco Use Status: Never used Tobacco service: No Current occupational status: disabled Meds Allergies Allergy/AdvReac Type Severity Reaction Status Date / Time lactose Allergy Mild Unknown Verified 09/04/23 20:03 acetaminophen [From Tylenol] Allergy Unknown Verified 09/04/23 20:03 Active Medications: Current Medications Acetaminophen (Acetaminophen 325 Mg Tablet) 975 mg PO Q6H PRN PRN Reason: mild pain, headache or fever Al Hydroxide/Mg Hydroxide (Magnesium Hydrox/Alum Hydrox 30 Ml Oral.Susp) 30 ml PO Q6H PRN PRN Reason: GI discomfort Atorvastatin Calcium (Atorvastatin Calcium 20 Mg Tablet) 20 mg PO DAILY [facility] Bisacodyl (Bisacodyl 10 Mg Supp.Rect) 10 mg GA DAILY PRN PRN Reason: Constipation Carbidopa/Levodopa (Carbidopa/Levodopa 25/100 Tablet) 1 tab PO DAILY [facility] Digoxin (Digoxin 0.25 Mg Tablet) 0.25 mg PO DAILY [facility] Furosemide (Furosemide 20 Mg Tablet) 20 mg PO DAILY [facility]; Protocol Furosemide (Furosemide 40 Mg Tablet) 40 mg PO DAILY [facility]; Protocol Guaifenesin (Guaifenesin 100 Mg/5 Ml Liquid) 10 ml PO Q4H PRN PRN Reason: Cough Piperacillin Sod/Tazobactam (Sod 3.375 gm/ Sodium Chloride) 50 mls @ 100 mls/hr IV Q6H [facility] Last Infusion: 09/05/23 13:21 Dose: Infused Sodium Chloride (Ns) 1,000 mls @ 100 mls/hr IVCONT .Q10H [facility] Last Admin: 09/05/23 13:21 Dose: 100 mls/hr Vancomycin HCl 750 mg/ Sodium (Chloride) 265 mls @ 265 mls/hr IV Q12H [facility] Last Admin: 09/05/23 16:30 Dose: 265 mls/hr Lactase (Lactase Tablet) 1 tab PO TIDAC [facility] Lactulose (Lactulose 20 Gm/30 Ml Solution) 20 gm PO DAILY [facility] Levothyroxine Sodium (Levothyroxine Sodium 100 Mcg Tablet) 100 mcg PO DAILY@0600 [facility] Metoprolol Tartrate (Metoprolol Tartrate 50 Mg Tablet) 50 mg PO BID [facility]; Protocol Non-Formulary Medication (Pimavanserin [Nuplazid]) 20 mg PO DAILY [facility] Pharmacy Consult (Consult Rx Vancomycin Dosing) 1 each MISCELLANE DAILY PRN PRN Reason: Consult order Potassium Chloride (Potassium Chloride Er 20 Meq Tab.Er.Prt) 40 meq PO DAILY [facility] Risperidone (Risperidone 2 Mg Tablet) 2 mg PO BID [facility] Risperidone (Risperidone 1 Mg Tablet) 1 mg PO BID [facility] Rivaroxaban (Rivaroxaban 20 Mg Tablet) 20 mg PO BEDTIME [facility] Senna (Sennosides 8.6 Mg Tablet) 8.6 mg PO DAILY PRN PRN Reason: Constipation Sodium Biphosphate/Sodium Phosphate (Sodium Phosphate,[place]-Dibasic 133 Ml Enema) 118 ml GA DAILY PRN PRN Reason: Constipation Sodium Chloride (0.9 % Sodium Chloride Flush 3 Ml Syringe) 3 ml IVFLUSH QSHIFT [facility] Last Admin: 09/05/23 16:31 Dose: Not Given Valproic Acid (Valproic Acid 250 Mg Capsule) 500 mg PO DAILY [facility] Valproic Acid (Valproic Acid 250 Mg Capsule) 1,000 mg PO BEDTIME [facility] Home Medications ?Medication ?Instructions ?Recorded ?Confirmed ?Last Taken ?Type carbidopa 25 mg-levodopa 100 mg 1 tab PO DAILY 09/04/20 09/05/23 Unknown History tablet (Sinemet) furosemide 40 mg tablet (Lasix) 40 mg PO DAILY 09/04/20 09/05/23 Unknown History lactase 3,000 unit tablet (Lactaid) 9,000 unit PO AC 09/04/20 09/05/23 Unknown History metoprolol tartrate 50 mg tablet 50 mg PO BID 09/04/20 09/05/23 Unknown History risperidone 2 mg tablet (Risperdal) 2 mg PO BID 09/04/20 09/05/23 Unknown History rivaroxaban 20 mg tablet (Xarelto) 20 mg PO BEDTIME 09/04/20 09/05/23 11/30/22 History sennosides 8.6 mg tablet (senna) 8.6 mg PO DAILY PRN Constipation 09/04/20 09/05/23 Unknown History simvastatin 20 mg tablet 40 mg PO BEDTIME 09/04/20 09/05/23 Unknown History valproic acid 250 mg capsule 500 mg PO DAILY 09/04/20 09/05/23 Unknown History acetaminophen 325 mg tablet 650 mg PO Q6H PRN pain or fever 09/05/20 09/05/23 Unknown History bisacodyl 10 mg rectal suppository 10 mg GA DAILY PRN Constipation 09/05/20 09/05/23 Unknown History loperamide 2 mg tablet 2 mg PO QID PRN Diarrhea 09/05/20 09/05/23 Unknown History valproic acid 250 mg capsule 1,000 mg PO BEDTIME 09/05/20 09/05/23 Unknown History aluminum-mag hydroxide-simethicone 30 ml PO Q6H PRN GI discomfort 09/05/23 09/05/23 Unknown History 200 mg-200 mg-20 mg/5 mL oral susp digoxin 250 mcg (0.25 mg) tablet 250 mcg PO DAILY 09/05/23 09/05/23 Unknown History furosemide 20 mg tablet 20 mg PO DAILY 09/05/23 09/05/23 Unknown History guaifenesin 100 mg/5 mL oral liquid 200 mg PO Q4H PRN Cough 09/05/23 09/05/23 Unknown History lactulose 10 gram/15 mL oral 20 g PO DAILY 09/05/23 09/05/23 Unknown History solution levothyroxine 100 mcg tablet 100 mcg PO DAILY@0600 09/05/23 09/05/23 Unknown History nystatin 100,000 unit/gram topical 1 appl topical BID 09/05/23 09/05/23 Unknown History powder omega-3 acid ethyl esters 1 gram 2 cap PO BID 09/05/23 09/05/23 Unknown History capsule (Lovaza) pimavanserin 10 mg tablet 20 mg PO DAILY 09/05/23 09/05/23 Unknown History (Nuplazid) potassium chloride 20 mEq 40 meq PO DAILY 09/05/23 09/05/23 Unknown History tablet,extended release(part/cryst) risperidone 1 mg tablet 1 mg PO BID 09/05/23 09/05/23 Unknown History sodium phosphates 19 gram-7 118 ml GA DAILY PRN Constipation 09/05/23 09/05/23 Unknown History gram/118 mL enema (Fleet Enema) Physical Exam Vital Signs: Vital Signs: Last Vital Signs Temp 98.3 F 09/05/23 15:30 Pulse 65 09/05/23 15:30 Resp 13 09/05/23 14:33 BP 161/61 H 09/05/23 15:30 Pulse Ox 98 09/05/23 15:30 O2 Del Method Nasal Cannula 09/05/23 15:30 O2 Flow Rate 1 09/05/23 15:30 Oxygen Flow Rate 2 09/04/23 20:00 BMI result Body Mass Index 38.6 Const: General: cooperative HEENT: Head: Yes normal to inspection Face and sinus: Yes normal facial exam Mouth: Normal oral and palatal mucosa present Teeth and gingiva: dentition normal Eyes: General: appearance normal, both eyes and all related structures Pupils: Equal, round and reactive pupils present Resp: Effort & Inspection: normal respiratory effort Cardio: Rate: regular rate Rhythm: regular rhythm GI: Palpation (GI): Soft to palpation and nontender : General: Yes no CVA tenderness Back/Spine/Pelvis: Back: no CVA tenderness Skin: General skin exam: no rashes or lesions noted Neuro: General: moves all extremities Cranial nerves: Yes Equal, round and reactive pupils present Extrem: General: Yes normal to inspection Psych: Appearance: grossly normal Mental Status: mental status grossly normal Results Labs 09/05/23 04:35 09/05/23 04:35 Labs: Short CBC 09/04/23 09/05/23 Range/Units 20:43 04:35 WBC 8.0 5.2 (4.8-10.8) X10*3/uL Hgb 12.7 10.9 L (12.0-16.0) g/dl Hct 37.9 33.1 L (37.0-47.0) % Plt Count 142 L 117 L (160-400) X10*3/uL BMP 09/04/23 09/05/23 20:43 04:35 Sodium 138 140 Potassium 4.7 3.7 D Chloride 101 107 Carbon Dioxide 25 24 BUN 14 16 Creatinine 0.77 0.76 Calcium 10.0 D 8.7 D Liver Function 09/04/23 09/05/23 Range/Units 20:43 04:35 Total Bilirubin 0.3 0.3 (0.0-1.0) mg/dL Direct Bilirubin 0.1 (0.0-0.5) mg/dL AST 20 9 (5-31) U/L ALT 16 13 (0-31) U/L Alkaline Phosphatase 52 42 (39-117) U/L Albumin 3.8 3.1 L (3.5-5.0) g/dL Urine 09/04/23 Range/Units 22:54 Urine Color Dark Yellow Urine Appearance Clear Urine pH 5.5 (5.0-9.0) Ur Specific [place] 1.025 (1.005-1.025) Urine Protein Trace (Neg-Trace) mg/dL Urine Glucose (UA) Negative (Negative) mg/dL Assessment and Plan (1) Altered mental status: Qualifiers: Altered mental status type: somnolence Qualified Code(s): R40.0 - Somnolence Status: Acute (2) CAP (community acquired pneumonia): Status: Acute Plan Possible early CAP. Await blood cultures. If negative blood cultures po cephalosporin and doxycycline for a week.
--- NOTE | 2023-09-05 17:08 | MHC.SL.SWA ---
Risk of Aspiration Due to: Parkinson's Disease Dysphasia Diet Status: UPGRADE Liquid Consistency and Strategies for Safe Swallow: Liquid Intake Recommendation: Thin Solid Food Consistency: Dietary Recommendations: Grnd/Mech Altered (NDD2) Oral Medication Intake: Whole with Liquid Please contact the pharmacy regarding appropriate crushable or liquid drug formulations that are available whenever modified delivery is recommended. Compensatory Strategies and Precautions to be Taken for Safe Swallow: Sitting Upright (90 deg) Supervision While Eating and Drinking for Safe Swallow: Total Supervision (1:1) Recommendation for Speech: Outpatient Speech Therapy Inpatient Speech Therapy Comment: Recommend UPGRADE to GROUND solids (NDD2) and thin liquids. Pills whole in liquid w/ larger pills cut 1/2 d/t pt's report of larger pills feeling stuck. Pt's baseline is IDDSI level 6 soft and bite sized which is equivalent to NDD3. BUSH HOG OPERATOR to continue to follow. Bundle Helper Clinican/Clinical Fellow: No Supervisory Statement: I have reviewed and agree with the student/clinical fellow's documentation: N/A Speech Language Pathologist: Katy Cole M.A., CCC-BUSH HOG OPERATOR
[2023-09-05] MEDS: Lactase TABLET 1 TAB PO (18:01)
--- NOTE | 2023-09-05 19:00 | PC.NURSE ---
this rn assumed care of pt. pt sitting up in stretcher eating dinner at this time, pt tolerating well. pt on 1L nasal cannula at this time sating 96%. pt normal sinus on tele 70-72bpm.
--- NOTE | 2023-09-05 20:22 | MHC.EDTECH ---
at this time we placed pt on portable monitor and began transfer to inpatient unit, VS were taken and rounding was also completed at this time
[2023-09-05] MEDS: Valproic Acid 250 MG CAPSULE 1000 MG PO (22:39)
[2023-09-05] MEDS: risperiDONE 2 MG TABLET PO (22:40)
[2023-09-05] MEDS: Metoprolol Tartrate 50 MG TABLET PO (22:40)
[2023-09-05] MEDS: Rivaroxaban 20 MG TABLET PO (22:40)
[2023-09-05] MEDS: risperiDONE 1 MG TABLET PO (22:40)
[2023-09-06] VITALS: BP 141/90; PULSE 71; RESP 20; TEMP 36.4; O2SAT 93
--- NOTE | 2023-09-06 | ECG_ITS ---
Test Reason : Bradycardia Blood Pressure : / mmHG Vent. Rate : 058 BPM Atrial Rate : 000 BPM P-R Int : 000 ms QRS Dur : 082 ms QT Int : 414 ms P-R-T Axes : 000 062 -18 degrees QTc Int : 406 ms Atrial fibrillation with slow ventricular response Nonspecific ST abnormality Abnormal QRS-T angle, consider primary T wave abnormality Abnormal ECG When compared with ECG of 04-SEP-2023 20:45, No significant changes seen Referred By: Philip Tidwell Electronically Signed By:CLAUDINE STARR
[2023-09-06] MEDS: Piperacillin Sodium/Tazobactam 3.375 GM in 0.9 % Sodium Chloride 50 ML IV ×3 (01:15→12:21)
[2023-09-06] MEDS: 0.9 % Sodium Chloride 1,000 ML 100 ML IVCONT (03:57)
[2023-09-06 04:00] VITALS: BP 130/82; PULSE 63; RESP 20; TEMP 36.5; O2SAT 97
[2023-09-06] MEDS: vancomycin HCL 750 MG in 0.9 % Sodium Chloride 250 ML 265 MG IV (04:13)
--- NOTE | 2023-09-06 05:03 | PC.NURSE ---
corrosion technician alerted this nurse of pt bradycardia as low as 34 per telemtry monitor. pt with no complaints or changed in mentation. EKG and vitals complete. MD visualized and made aware, respectively. no interventions at this time. call gray in reach. plan of care ongoing
[2023-09-06] MEDS: Levothyroxine Sodium 100 MCG TABLET PO (06:01)
[2023-09-06 07:32] LABS: Creatinine Clr Calc Pharmacy 89.6; Estimated Glomerular Filt Rate > 60
[2023-09-06 08:00] VITALS: BP 133/80; PULSE 62; RESP 22; TEMP 36.6; O2SAT 100
[2023-09-06] MEDS: Potassium Chloride ER 20 MEQ TAB.ER.PRT 40 MEQ PO (08:41)
[2023-09-06] MEDS: Furosemide 40 MG TABLET PO (08:41)
[2023-09-06] MEDS: risperiDONE 1 MG TABLET PO (08:41)
[2023-09-06] MEDS: risperiDONE 2 MG TABLET PO (08:41)
[2023-09-06] MEDS: Furosemide 20 MG TABLET PO (08:41)
[2023-09-06] MEDS: Valproic Acid 250 MG CAPSULE 500 MG PO (08:41)
[2023-09-06] MEDS: Lactulose 20 GM/30 ML SOLUTION PO (08:41)
[2023-09-06] MEDS: Atorvastatin Calcium 20 MG TABLET PO (08:41)
[2023-09-06] MEDS: Lactase TABLET 1 TAB PO ×2 (08:41→12:19)
[2023-09-06] MEDS: Carbidopa/Levodopa 25/100 TABLET 1 TAB PO (08:42)
[2023-09-06] MEDS: Digoxin 0.25 MG TABLET PO (08:42)
[2023-09-06] MEDS: Metoprolol Tartrate 50 MG TABLET PO (08:42)
[2023-09-06 12:00] VITALS: BP 164/74; PULSE 60; RESP 20; TEMP 36.4; O2SAT 97
--- NOTE | 2023-09-06 13:34 | P.DS_ITS ---
DS: Providers Provider Date of Service: 09/06/23 Date of admission: 09/05/23 03:16 Date of discharge: 09/06/23 Primary care physician: Cristofer Lake DO Consults: 09/05/23 07:29 Consult to Neurology Routine Consulting Provider: [facility] Reason for consultation: Hx of a-fib on Xarelto, AMS ?stroke Has provider been notified: No 09/05/23 07:39 Consult to Infectious Diseases Routine Consulting Provider: [facility] Reason for consultation: Altered mental status and fever Has provider been notified: No Attending physician on discharge: Dami Triplett Discharging clinician: Slime Bullock DS: Diagnosis Discharge Diagnosis (1) Altered mental status: Status: Acute (2) Pneumonia: Status: Acute (3) CAP (community acquired pneumonia): Status: Acute DS: Summary Hospital Course Hospital Course: From H&P on the day of admission Zahida Sy is a 63 years old woman with past medical history significant for schizoaffective disorder, intellectual disability, generalized muscle weakness, essential hypertension, atrial fibrillation on Xarelto, parkinsonism, hypothyroidism, hyperlipidemia and gait abnormalities was brought to the emergency department from [facility] after she was noted not being active normal by staff. Patient also was noted to be more quiet than usual. EMS reported right-sided weakness but initially patient reported left-sided weakness then right-sided. [facility] nursing notes: Patient not observed sludge on her right side, unable to follow commands when asked to sit up, right eye appear to be close more than the right, she had the lateral weekend grasps when asked how the dressing was feeling she appear with a blank stare blood pressure 150/90 respiratory rate 16 oxygen saturation 93% In the ED, she was found to have fever 103.2. There is no tachycardia or hypotension. Oxygen saturation is normal requiring 2 liters/minute supplemental oxygen via nasal cannula. Blood workup showed no leukocytosis. There are no electrolyte imbalances. Renal function and LFTs are normal. Urinalysis showed no finding consistent with urinary tract infection. Viral testing COVID-19, influenza RSV is negative. ECG showed atrial fibrillation, heart rate [address] scan showed no acute intracranial abnormality. CXR showed streaky bibasilar opacities likely represent atelectasis with right lower lobe pneumonia could not be excluded. ED tx: NS 2 L bolus, Levaquin 500 mg IV, acetaminophen 975 mg p.o., ibuprofen 600 mg p.o. Toxic metabolic encephalopathy due to underlying infection. Brain CT negative for acute intracranial pathology. Patient was seen by Neurology and was not noted to have any focal neurological deficits, encephalopathy thought to be due to underlying pneumonia. No MRI or further neurological workup recommended at this time. Patient awake alert and oriented at the time of discharge. Pneumonia-no fever since admission. No respiratory symptoms, weaned off of supplemental oxygen. No leukocytosis, blood cultures have remained negative at 24 hours. Initially treated with IV vancomycin and Zosyn. Seen by Infectious diseases who recommended discharge with doxycycline and cefuroxime for total 7 days. Thrombocytopenia. Chronic Time Attestation Discharge Coordination Time (in mins): 32 Quality: Safe Use of Opioids Does Pt have an Active Cancer Diagnosis on the Problem List?: No Quality: Stroke Does the patient have a stroke diagnosis?: No Physical Exam Vital Signs: Vital Signs: Last Vital Signs Temp 97.8 F 09/06/23 08:00 Pulse 62 09/06/23 08:00 Resp 22 H 09/06/23 08:00 BP 133/80 09/06/23 08:00 Pulse Ox 100 09/06/23 08:00 O2 Del Method Nasal Cannula 09/06/23 08:00 O2 Flow Rate 1 09/06/23 08:00 Oxygen Flow Rate 2 09/04/23 20:00 BMI result Body Mass Index 38.6 Const: General: comfortable, no acute distress, alert and awake Nutritional Appearance: overweight Resp: Effort & Inspection: normal respiratory effort, able to speak in complete sentences, no respiratory distress and no use of accessory muscles Cardio: Rate: regular rate GI: Inspection: No distended Palpation (GI): Soft to palpation Neuro: Other: Grossly nonfocal, able to move all 4 extremities spontaneously. Tongue midline, face symmetrical DS: Data Data Completed and Pending Labs on day of discharge: Laboratory Results - last 24 hr 09/06/23 06:42 Creatinine 0.71 Estim Creat Clear Calc 89.6 Estimated GFR > 60 Preliminary micro results at discharge 09/04/23 20:31 Blood Culture - Preliminary Blood - Venous No growth after 24 hours. 09/04/23 20:31 Blood Culture - Preliminary Blood - Venous No growth after 24 hours. Discharge Plan Discharge Patient Disposition: [facility] Discharge Diagnosis: Pneumonia Toxic metabolic encephalopathy Chronic thrombocytopenia Referrals: [facility] [Outside] - 1 Week Cristofer Lake DO [Primary Care Provider] - 1 Week Discharge Medications: New cefuroxime axetil 500 mg tablet 500 mg PO Q12H 6 Days Qty: 12 0RF doxycycline monohydrate 100 mg tablet 100 mg PO BID 6 Days Qty: 12 0RF Continued furosemide [Lasix] 40 mg Tablet 40 mg PO DAILY Rx Instructions: tdd = 60 mg sennosides [senna] 8.6 mg Tablet 8.6 mg PO DAILY PRN (Reason: Constipation) risperidone [Risperdal] 2 mg Tablet 2 mg PO BID simvastatin 20 mg Tablet 40 mg PO BEDTIME metoprolol tartrate 50 mg Tablet 50 mg PO BID lactase [Lactaid] 3,000 unit Tablet 9,000 unit PO AC carbidopa-levodopa [Sinemet] 25-100 mg Tablet 1 tab PO DAILY valproic acid 250 mg Capsule 500 mg PO DAILY Xarelto 20 mg Tablet 20 mg PO BEDTIME acetaminophen 325 mg Tablet 650 mg PO Q6H PRN (Reason: pain or fever) loperamide 2 mg Tablet 2 mg PO QID MDD 8mg PRN (Reason: Diarrhea) valproic acid 250 mg Capsule 1,000 mg PO BEDTIME bisacodyl 10 mg Suppository 10 mg AR DAILY PRN (Reason: Constipation) Rx Instructions: if senna is ineffective digoxin 250 mcg (0.25 mg) Tablet 250 mcg PO DAILY Rx Instructions: hold for apical pulse <60 guaifenesin 100 mg/5 mL Liquid 200 mg PO Q4H PRN (Reason: Cough) levothyroxine 100 mcg Tablet 100 mcg PO DAILY@0600 Rx Instructions: at least 30 minutes before food Fleet Enema 19-7 gram/118 mL Enema 118 ml AR DAILY PRN (Reason: Constipation) Rx Instructions: if bisacodyl is ineffective furosemide 20 mg Tablet 20 mg PO DAILY Rx Instructions: tdd = 60 mg lactulose 10 gram/15 mL Solution 20 g PO DAILY potassium chloride 20 mEq Tablet,Er Particles/Crystals 40 meq PO DAILY alum-mag hydroxide-simeth [Mylanta] 200-200-20 mg/5 mL Suspension 30 ml PO Q6H PRN (Reason: GI discomfort) Rx Instructions: administer between meals and at bedtime nystatin 100,000 unit/gram Powder 1 appl TOPICAL BID Rx Instructions: for rash under breasts, cleanse area prior to applying powder risperidone 1 mg Tablet 1 mg PO BID omega-3 acid ethyl esters [Lovaza] 1 gram Capsule 2 cap PO BID Nuplazid 10 mg Tablet 20 mg PO DAILY Discharge Orders: Discharge Order (Routine); Ordered 09/06/23 Ordered By: Slime Bullock Activity on Discharge: As tolerated Stand Alone Forms: Patient Portal Discharge page Print Language: Togolese Care Plan Goals: See below Health Concerns: Toxic metabolic encephalopathy due to pneumonia Plan of Treatment: Complete 6 more days of cefuroxime and doxycycline for pneumonia Assessment: See discharge summary
[2023-09-06 13:38] VITALS: O2SAT 97
--- NOTE | 2023-09-06 13:38 | MHC.SL.SWA ---
Speech Pathologist Impression: Risk of Aspiration Due to: Dysphasia Diet Status: Recommend continue on Ground Mechanical (NDD2) with thin liquids, pills whole with liquid. Patient needs at a minimum periodic supervision to assure that she is seated appropriately for meal, has access to all foods on tray, and is progressing independently without spilling food on herself. LEAD SETTER to f/u X1 to assure safety. Liquid Consistency and Strategies for Safe Swallow: Liquid Intake Recommendation: Thin Liquid Intake Strategies: Small Sips Solid Food Consistency: Dietary Recommendations: Grnd/Mech Altered (NDD2) Additional Modifications to Solid Foods: Oral Medication Intake: Whole with Liquid Please contact the pharmacy regarding appropriate crushable or liquid drug formulations that are available whenever modified delivery is recommended. Compensatory Strategies and Precautions to be Taken for Safe Swallow: Sitting Upright (90 deg) Liquids from Cup Liquids from Straw Small Bites and Sips Alternate Liquids/Solids Supervision While Eating and Drinking for Safe Swallow: Intermittent Supervision Foods to Avoid: Swallowing Recommended Treatments: Compens. Strategy Educat. Recommendation for Speech: Inpatient Speech Therapy Comment: Patient seen during her lunch meal. On entering room, Patient was alone, mostly reclined in bed, turned to the side and supporting herself on her elbow as she ate her meal. LEAD SETTER raised head of bed so that patient was more upright and seated more comfortably and reminded patient that this is essential when she is eating. Patient reported that she did not like her meal of ground chicken and ground (but still hard to chew) carrots, however she had eaten the pureed squash on tray as well as pudding, and was eating the Jell-O that also came with the meal. Patient was able to self feed the Jell-O with some mild difficulties, e.g. spilling some of it on herself. Patient was observed also drinking juice from a cup and gingerale with a straw, evidencing a timely swallow and no clinical signs of aspiration. Patient noted, with the hard carrots, that she is edentulous and cannot chew hard or tough foods. Patient appears to be on appropriate diet, which is reportedly her baseline. Recommend continue on Ground Mechanical (NDD2) with thin liquids, pills whole with liquid. Patient needs at a minimum periodic supervision to assure that she is seated appropriately for meal, has access to all foods on tray, and is progressing independently without spilling food on herself. LEAD SETTER to f/u X1 to assure safety. Frequency/Duration: Date Range for Service Req: Timeline to reassess: Dental Office Receptionist Clinican/Clinical Fellow: No Supervisory Statement: I have reviewed and agree with the student/clinical fellow's documentation: N/A Speech Language Pathologist: Aleah Burroughs M.A., CCC-LEAD SETTER
--- NOTE | 2023-09-06 14:00 | MHC.CM.PN ---
Patient has been medically cleared for dc to LTC today. Patient will return to LTC @ [facility] today at 5 PM, via [facility](CM Aircraft Machinist Helper is assisting with [place] Medicaid transportation auth). Patient has no listed Contacts..
[2023-09-06 14:51] LABS: Vancomycin Random 9.6 mcg/mL (15-20)
[2023-09-06 16:00] VITALS: BP 147/66; PULSE 62; RESP 16; TEMP 36.6; O2SAT 100
[2023-09-06] MEDS: vancomycin HCL 1,250 MG in 0.9 % Sodium Chloride 250 ML 166.67 MG IV (16:25)
--- NOTE | 2023-09-11 09:44 | P.CDIM_ITS ---
PROVIDER RESPONSE TEXT: To clarify, the appropriate diagnosis supported by the clinical indicators: Metabolic QUERY TEXT: PHYSICIAN'S DOCUMENTATION REQUEST Date of Query: 09/05/2023 12:23 PM EDT Patient Name: Zahida Sy Admit Date: 09/05/2023 Dear So Valdovinos, A review of the medical record indicates additional documentation may be needed. Please review below and update the documentation accordingly. Clinical Indicators: Per H&P 06/07/23 : altered mental status, lethargic, decreased level of consciousness/acute encephalop athy Based on the above, please further specify, in the Progress Notes, the known or suspected type of the documented encephalopathy: Metabolic Septic Toxic Toxic metabolic Hypertensive Anoxic Alcoholic Hepatic (reported as hepatic failure and needs further specificity as to acute, subacute, or chronic) Due to a specified condition (such as UTI, hyponatremia, CVA, etc.) Other (explain) Clinically unable to determine (explain) Thank you, Charlene Russ RN Use of terms such as suspected, likely, concern for, or probable (associated with a specific diagnosi s that is being evaluated, monitored, or treated as if it exists) are acceptable and can be coded in the inpatient se tting, when documented at the time of discharge. Please use your independent medical judgment in providing your response. THIS QUERY IS PART OF THE PERMANENT MEDICAL RECORD
== END 2023-09-06 17:14 | DRG 139 ==
LOC: HO.ED 09-05 02:01 → HO.EDOVER 09-05 03:27 → HO.IMC 09-05 19:25
PROVIDERS: Nurse Practitioner Acute Care; Admitting Provider Internal Medicine; Emergency Provider Emergency Medicine; PCP Hospitalist; Visit Provider Physician Assistant Medical
DX: J18.9 Pneumonia, unspecified organism (principal); G92.8 Other toxic encephalopathy; D69.6 Thrombocytopenia, unspecified; F25.9 Schizoaffective disorder, unspecified; G20.C Parkinsonism, unspecified; F79 Unspecified intellectual disabilities; E03.9 Hypothyroidism, unspecified; E78.5 Hyperlipidemia, unspecified; I10 Essential (primary) hypertension; I48.91 Unspecified atrial fibrillation; Z20.822 Contact with and (suspected) exposure to COVID-19; Z79.01 Long term (current) use of anticoagulants; Z79.890 Hormone replacement therapy; Z79.899 Other long term (current) drug therapy
CPT/HCPCS: 36415; 70450; 71045; 80048; 80053; 80076; 80202; 80307; 81003; 82565; 82947; 83605; 83735; 84443; 84484; 85025; 85610; 87040; 87502; 87635; 92526; 92610; 93005; 99285; J1956; J2543; J3370; J3371

== ENCOUNTER → 2023-09-04 19:45 | Outpatient (BNV) | payer MEDICAID, SELFPAY | PROVIDERS: Admitting Provider Internal Medicine; Emergency Provider Emergency Medicine; PCP Hospitalist; Visit Provider Internal Medicine | DX: R94.31 Abnormal electrocardiogram [ECG] [EKG] (principal) | CPT/HCPCS: 93010 ==

== ENCOUNTER 2023-09-05 03:16 | Outpatient (BNV) | payer MEDICAID, SELFPAY | END 2023-09-06 04:48 | PROVIDERS: Admitting Provider Internal Medicine; Emergency Provider Emergency Medicine; PCP Hospitalist; Visit Provider Internal Medicine | DX: R00.1 Bradycardia, unspecified (principal) | CPT/HCPCS: 93010 ==

== ENCOUNTER → 2023-09-05 03:16 | Outpatient (BNV) | payer MEDICAID, SELFPAY | PROVIDERS: Admitting Provider Internal Medicine; Emergency Provider Emergency Medicine; PCP Hospitalist; Visit Provider Internal Medicine | DX: R40.0 Somnolence (principal); J18.9 Pneumonia, unspecified organism | CPT/HCPCS: 99223; 99239; 99499 ==

== ENCOUNTER → 2023-09-05 03:16 | Outpatient (BNV) | payer MEDICAID, SELFPAY | PROVIDERS: Admitting Provider Internal Medicine; Emergency Provider Emergency Medicine; PCP Hospitalist; Visit Provider Psychiatry & Neurology Neurology | DX: R40.0 Somnolence (principal); J18.9 Pneumonia, unspecified organism | CPT/HCPCS: 99222 ==

== ENCOUNTER → 2023-09-05 03:16 | Outpatient (BNV) | payer MEDICAID, SELFPAY | PROVIDERS: Admitting Provider Internal Medicine; Emergency Provider Emergency Medicine; PCP Hospitalist; Visit Provider Internal Medicine | DX: R40.0 Somnolence (principal); J18.9 Pneumonia, unspecified organism | CPT/HCPCS: 99222 ==

== ENCOUNTER 2023-09-27 13:32 | Outpatient (REF) | payer MEDICAID, SELFPAY | END 2023-09-27 13:33 | disposition home or self-care (01) | LOC: HO.MAMMO 13:32 | PROVIDERS: PCP Hospitalist; Visit Provider Hospitalist | DX: Z13.89 Encounter for screening for other disorder (principal) ==

== ENCOUNTER 2023-10-30 07:33 | Emergency (ER) | payer MEDICAID, SELFPAY ==
[2023-10-30 07:53] LABS: Glucose, Whole Blood 289 mg/dL (60-115)
--- NOTE | 2023-10-30 07:56 | ED_ITS ---
HPI - CPR General Chief Complaint: Cardiac Arrest/CPR Stated Complaint: CARDIAC ARREST Time Seen by Provider: 10/30/23 07:50 Source: EMS Mode of arrival: EMS Limitations: altered mental status History of Present Illness ED Provider: Dr. Misha Adamson HPI narrative: 63-year-old female with a history of schizoaffective disorder, intellectual disability, hypertension, hyperlipidemia, atrial fibrillation on Xarelto, Parkinson's disease who presents emergency department in cardiac arrest. Information was obtained from the paramedics. Staff states the patient woke up and then had a witnessed cardiac arrest. CPR was started at 06:39 hours. When the paramedics arrived on the scene patient was getting CPR and the patient was asystolic. Patient was intubated with an eye intermediate, a right lower extremity IO was placed. Patient was given multiple rounds of epinephrine IV and remained asystolic. After approximately 20 minutes the patient had ROSC with a low blood pressure. The patient then became asystolic again. When the paramedics arrived in the emergency department they stated that they had a pulse with a very low blood pressure. When the patient was transferred onto the emergency department stretcher she was pulseless and was asystolic on the monitor. CPR was continued by staff and she was placed on our Chung device. The patient had 4 rounds of epinephrine. Paramedics reported that they gave 4 rounds of epinephrine and 1 dose of atropine and the patient had [place]. Patient remained asystolic during our resuscitation attempt. The patient was resuscitated for proximally 60 minutes and during the majority this time patient was asystolic. In discussion with the code team it was felt that further resuscitation was not warranted and the patient was pronounced at 07:46 hours. The patient is a resident of the [facility]. I did review her last hospitalization on until 09/06/2023. At that time the patient was admitted for community-acquired pneumonia and metabolic encephalopathy due to her pneumonia. After this admission the patient was discharged to [facility]. 08:26 I did discuss the patient's presentation with the medical equipment technician dontae Avina. He declined jurisdiction of the case. Case #[id number]. I also contacted the patient's attending of record over tiger xochilt, Dr. Cristofer Lake. Related Data Home Medications ?Medication ?Instructions ?Recorded ?Confirmed carbidopa 25 mg-levodopa 100 mg 1 tab PO DAILY 05/29/21 05/29/24 tablet (Sinemet) furosemide 40 mg tablet (Lasix) 40 mg PO DAILY 09/04/20 09/05/23 lactase 3,000 unit tablet (Lactaid) 9,000 unit PO AC 09/04/20 09/05/23 metoprolol tartrate 50 mg tablet 50 mg PO BID 09/04/20 09/05/23 risperidone 2 mg tablet (Risperdal) 2 mg PO BID 09/04/20 09/05/23 rivaroxaban 20 mg tablet (Xarelto) 20 mg PO BEDTIME 09/04/20 09/05/23 sennosides 8.6 mg tablet (senna) 8.6 mg PO DAILY PRN Constipation 09/04/20 09/05/23 simvastatin 20 mg tablet 40 mg PO BEDTIME 09/04/20 09/05/23 valproic acid 250 mg capsule 500 mg PO DAILY 09/04/20 09/05/23 acetaminophen 325 mg tablet 650 mg PO Q6H PRN pain or fever 09/05/20 09/05/23 bisacodyl 10 mg rectal suppository 10 mg DE DAILY PRN Constipation 09/05/20 09/05/23 loperamide 2 mg tablet 2 mg PO QID PRN Diarrhea 09/05/20 09/05/23 valproic acid 250 mg capsule 1,000 mg PO BEDTIME 09/05/20 09/05/23 aluminum-mag hydroxide-simethicone 30 ml PO Q6H PRN GI discomfort 09/05/23 09/05/23 200 mg-200 mg-20 mg/5 mL oral susp digoxin 250 mcg (0.25 mg) tablet 250 mcg PO DAILY 09/05/23 09/05/23 furosemide 20 mg tablet 20 mg PO DAILY 09/05/23 09/05/23 guaifenesin 100 mg/5 mL oral liquid 200 mg PO Q4H PRN Cough 09/05/23 09/05/23 lactulose 10 gram/15 mL oral 20 g PO DAILY 09/05/23 09/05/23 solution levothyroxine 100 mcg tablet 100 mcg PO DAILY@0600 09/05/23 09/05/23 nystatin 100,000 unit/gram topical 1 appl topical BID 09/05/23 09/05/23 powder omega-3 acid ethyl esters 1 gram 2 cap PO BID 09/05/23 09/05/23 capsule (Lovaza) pimavanserin 10 mg tablet 20 mg PO DAILY 09/05/23 09/05/23 (Nuplazid) potassium chloride 20 mEq 40 meq PO DAILY 09/05/23 09/05/23 tablet,extended release(part/cryst) risperidone 1 mg tablet 1 mg PO BID 09/05/23 09/05/23 sodium phosphates 19 gram-7 118 ml DE DAILY PRN Constipation 09/05/23 09/05/23 gram/118 mL enema (Fleet Enema) Previous Rx's ?Medication ?Instructions ?Recorded cefuroxime axetil 500 mg tablet 500 mg PO Q12H 6 days #12 tabs 09/06/23 doxycycline monohydrate 100 mg 100 mg PO BID 6 days #12 tabs 09/06/23 tablet Allergies Allergy/AdvReac Type Severity Reaction Status Date / Time lactose Allergy Mild Unknown Verified 09/04/23 20:03 acetaminophen [From Tylenol] Allergy Unknown Verified 09/04/23 20:03 Review of Systems Review of Systems: Yes unobtainable due to endotracheal tube PMFSH Past Medical History Medical History Cardiomegaly OCD (obsessive compulsive disorder) Intellectual disability Hyperlipidemia Hypothyroid Hypokalemia Bilateral cataracts HTN (hypertension) Muscle weakness Borderline personality disorder Vaginal septum Fall Atrial fibrillation Schizoaffective disorder Parkinsons Surgical History History of foot surgery Hx of tonsillectomy Family History Family History Paternal Grandmother Breast cancer Social History Social History Household Members: None Housing: Assisted Living Facility Housing Other:: [facility] Do you presently have visiting nurse or other home services: No Unable to assess alcohol history related to: Unknown Alcohol intake: never Patient Tobacco Use Status: Never used Tobacco Advance Directives: No service: No Current occupational status: disabled Physical Exam Vital Signs: Exam: General: Very pale appearing, no spontaneous movement. Patient was intubated with an I gel. Patient has a right tibial interosseous line Head: No evidence of trauma EENT: Pupils were fixed and dilated, lids appear normal, no periorbital ecchymosis Lung: No spontaneous respiratory effort, breath sounds were symmetric with bag- valve mask assisted respirations through I jaw Chest: symmetric movement with bag-valve assisted respiration Heart: No heart sounds on auscultation Abdomen: Obese, no ecchymosis Extremities: No evidence of trauma Neuro: No spontaneous movements Course Reevaluation(s) Reevaluation #1: Multiple unsuccessful IV attempts by nursing in b/l hands and AC regions. Therefore I attempted to place an IO in the left tib/fib region, difficult secondary to patient's body habitus, unsuccessful. IO taken out by this PA-C Medical Decision Making Medical Decision Making MDM Narrative: 63-year-old female with a history of schizoaffective disorder, intellectual disability, hypertension, hyperlipidemia, atrial fibrillation on Xarelto, Parkinson's disease, community-acquired pneumonia 09/06/2023 treated here, patient at [facility] since discharge for pneumonia who presents emergency department for witnessed cardiac arrest at her care facility. Patient has been at her care facility since 09/06/2023. At that time she was hospitalized here for pneumonia and sent to acute rehab. Differential diagnosis: ?Includes but is not limited to myocardial infarction, myocardial ischemia, pulmonary embolism, anemia, electrolyte abnormalities Course: Patient had CPR started immediately by staff and paramedics found her to be asystolic and pulseless. Paramedics reported brief episode of ROSC after 20 minutes of resuscitation however the patient then became a systolic again. When paramedics arrived in the emergency department they again reported ROSC but when the patient was transferred to the ED stretcher she was asystolic. CPR was continued my staff and then by Chung device. Patient received 4 rounds of epinephrine and during our resuscitation she remained asystolic. Patient had a proximally 60 minutes ACLS resuscitation with no significant period of ROSC. The patient was pronounced at 07:46 hours. I did review the nursing facility face sheet and there is no next of kin to be notified. Also, in our electronic medical record the patient is listed as the primary contact with no next of kin. I did notify, over tiger text, the attending physician of record, Dr. Lake Admission/Observation Consideration of admission/observation: Escalation of care including ad mission/observation considered Consult Healthcare Provider Management of the patient was discussed with: Supervisor Ovens Discuss presentation with medical equipment technician who declined jurisdiction Lab Data Labs: Lab Results 10/30/23 Range/Units 07:41 POC Glucose 289 H (60-115) mg/dL Independent Interpretation I performed an independent interpretation of an: Rhythm Strip Interpretation: Patient's rhythm strip at the end of resuscitation is asystole Independent Historian Clinical information obtained from an independent historian. History obtained from or confirmed by: EMS External Record Review External record reviewed: Inpatient record and Outpatient record ([facility] notes) Chronic Conditions Patient?s care impacted by: Diabetes and Hypertension Critical Care Time Critical Care Time Critical Care Time: Yes Total Critical Care Time: 35 Attestation: Critical Care: The patient was critically ill with a high probability of imminent or life threatening deterioration. I spent greater than 30 minutes of discontinuous time evaluating the patient,delivering critical care at the bedside, discussing and evaluating pertinent data with EMS and the code team. Critical care time does not include time spent performing separately billable procedures or teaching. Total time spent performing critical care was 35 minutes. Discharge Plan Discharge Clinical Impression: Cardiac asystole, due to cardiac arrest Patient Disposition: Date/Time: 10/30/23 07:46
--- NOTE | 2023-10-30 08:07 | PC.NURSE ---
candace arrives from [facility], per EMS report patient was last seen sleeping this morning, then staff went into room due to patient sitting up in bed and gasping for air, per EMS patient was witnessed arrest and staff immediately started CPR at 0639. patient was intubated by a #4 gel tube in the field by EMS, recieved a total of 4 rounds of epi, patient was found to be in an agonal rhythm in the 30s, EMS began pacing patient with a rate in the 80s and gave 1 dose of atropine. patient arrives paced on EMS AED, POC for EMS 380. [facility] patient was noted to not have pulse despite being paced, CPR resumed manually by staff at 0735. patient transitioned onto dianne device for automated CPR at 0740 during pulse check. IV medicataions given through right tib IO placed by EMS in field, difficult to obtain further IV access. attempt made at second IO in left tibia that was unsuccessful. ACLS performed by staff, 0746 pulse check, patient remains asystolic on monitor, TOD called by MD Adamson. post mortem care provided by EDTs. no emergency contact listed in chart, special education secretary attempting to contact facility to notify family
--- NOTE | 2023-10-30 08:08 | PC.RT ---
Pt brought in via EMS unconscious and being paced on monitor. Pt has an i-gel #4 established by EMS, RT confirmed bilateral air flow and good ventilation. Pt was found upon transfer to bed to be pulseless, CPR was immediately initiated by ED staff. ACLS protocol administered to pt by MD and ED staff. Pt bag valve ventilated through i-gel by RT by ACLS standards with 100% O2 and CO2 monitoring. After an appropriate amount of time, pt was pronounced by .
--- NOTE | 2023-10-30 08:20 | MHC.EDTECH ---
SECTION LABORER OFFICE CALLED @ 0685 @ DR KERN REQUEST MEME ANSWERS, TAKES PT INFO THEN SPEAKS WITH DR KERN
--- NOTE | 2023-10-30 08:22 | MHC.EDTECH ---
HOME LISTED ON SNF DEMO: [facility] [phone]
--- NOTE | 2023-10-30 08:56 | MHC.EDTECH ---
MOLD BUILDER DECLINES CASE: PER MEME HILTON
== END 2023-10-30 11:19 | disposition expired ==
PROVIDERS: Emergency Provider Emergency Medicine Emergency Medical Services
DX: I46.9 Cardiac arrest, cause unspecified (principal); I48.91 Unspecified atrial fibrillation; I10 Essential (primary) hypertension; E78.5 Hyperlipidemia, unspecified; G20.A1 Parkinson's disease without dyskinesia, without mention of fluctuations; Z79.01 Long term (current) use of anticoagulants
CPT/HCPCS: 82947; 99282; 99285; J0171